=== PATIENT | female | born 1950 | race Caucasian/White ===

== ENCOUNTER 2016-09-20 18:10 | Inpatient (IN) ==
[2016-09-20] MEDS ORDERED: 0.9 % Sodium Chloride 1,000 ML IVC ONE (18:42)
[2016-09-20 19:03] LABS: Basophils % 0.6 %; Eosinophils # 0.1 K/mcL (0.0-0.6); Eosinophils % 1.7 %; Hematocrit 39.1 % (35.3-44.9); Hemoglobin 12.7 g/dL (11.5-15.4); Immature Granulocytes % 0.2 % (0-4); Lymphocytes # 0.8 K/mcL (0.6-4.6); Lymphocytes % 15.3 %; Mean Corpuscular HGB Conc 32.5 g/dL (31.6-35.5); Mean Corpuscular Volume 89.3 fL (83.0-100.0); Mean Platelet Volume 11.2 fL (9.4-12.4); Monocytes # 0.3 K/mcL (0.0-1.3); Monocytes % 5.3 %; Neutrophils # 4.1 K/mcL (1.6-8.9); Platelet Count 172 K/mcL (140-400); Red Blood Count 4.38 M/mcL (3.82-4.97); Red Cell Distribution Width 14.5 % (11.5-14.5); Segmented Neutrophils % 76.9 %
[2016-09-20 19:11] LABS: INR 1.1; Prothrombin Time 12.2 Seconds (9.4-12.1)
[2016-09-20 19:14] LABS: Activated Partial Thrombo Time 36.5 Seconds (26.0-36.0)
[2016-09-20 19:31] LABS: Bilirubin,Urine Small (Negative); Blood,Urine Trace-intact (Negative); Color,Urine Yellow (Yellow); Glucose,Urine (UA) Normal (Normal); Ketones,Urine Negative (Negative); Leukocyte Esterase,Urine Small (Negative); Nitrite,Urine Negative (Negative); Protein,Urine Negative (Neg-Trace); Specific Gravity,Urine 1.025 (1.010-1.025); Urobilinogen,Urine Normal (Normal)
[2016-09-20 19:39] LABS: Amphetamine Screen,Urine Negative ng/mL (Cutoff=1000); Barbiturate Screen,Urine Negative ng/mL (Cutoff=200); Benzodiazepines Screen,Urine Positive ng/mL (Cutoff=200); Cannabinoid Screen,Urine Positive ng/mL (Cutoff = 50); Cocaine Screen,Urine Negative ng/mL (Cutoff= 300); Opiate Screen,Urine Negative ng/mL (Cutoff=300); Phencyclidine Screen,Urine Negative ng/mL (Cutoff=25)
[2016-09-20 19:41] LABS: RBC,Urine 0-3 per hpf (0-3)
[2016-09-20 19:42] LABS: Bacteria,Urine Few per hpf (None-Few); Hyaline Casts,Urine Few per lpf (None-Few); Mucus,Urine Few (Few); Squamous Epithelial Cell,Urine Many per lpf (None-Few); Uric Acid Crystals,Urine Present
[2016-09-20 19:43] LABS: Clarity,Urine Turbid (Clear)
--- NOTE | 2016-09-20 19:45 | Emergency Department Note ---
Disposition Clinical Impression: Altered mental status, Renal dysfunction Disposition: Admitted As Inpatient Condition: Good Referrals: NO,PCP [Primary Care Provider] - Forms: ED Satisfaction Letter Time of Disposition: 00:24 Altered Mental Status HPI - General Chief Complaint: ED Altered Mental Status Stated Complaint: Acute AMS Time Seen by Provider: 09/20/16 18:42 Source: patient Mode of arrival: ambulatory Limitations: no limitations Nursing Notes Reviewed: Yes Vital Signs Reviewed: Yes - History of Present Illness HPI Narrative: 66-year-old female presents with worsening altered mental status over the last 24 hours in the context of urinary tract infection. Her family at the bedside states that this is usual for her when she has a urinary tract infection. She has been taking her antibiotics as directed, with initial improvement in her confusion followed by worsening of symptoms today. She has been more wobbly than usual with walking including an episode today where she has a lowered herself onto the ground while standing with her walker. She denies any fall or head injury. She denies any fever, headache, neck stiffness, chest pain or shortness of breath, nausea or vomiting. She does admit to difficulty with urination. She denies any rashes or edema. 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 She denies any focal numbness or weakness. - Related Data Home Medications Medication Instructions Recorded Confirmed Aspirin [Adult Low Dose Aspirin EC] 81 mg PO DAILY 10/28/15 10/28/15 Atorvastatin [Lipitor] 40 mg PO HS 10/28/15 10/28/15 Cinnamon Bark [Cinnamon] 500 mg PO DAILY 10/28/15 10/28/15 CloNIDine HCl [Clonidine HCl] 0.2 mg PO Q2H PRN 10/28/15 10/28/15 ClonazePAM [Klonopin] 0.5 mg PO Q12H PRN 10/28/15 10/28/15 Clopidogrel [Plavix] 75 mg PO DAILY 10/28/15 10/28/15 DiphenhydraMINE [Benadryl] 50 mg PO HS PRN 10/28/15 10/28/15 Glucosamine HCl/Chondr Cowart A Na 1 each PO DAILY 10/28/15 10/28/15 [Cvs Glucosamine-Chondr Caplet] Insulin DETEMIR [Levemir] 20 unit SQ BID 10/28/15 10/28/15 Insulin LISPRO [Humalog] 6 unit SQ TID 10/28/15 10/28/15 LORazepam [Ativan] 0.5 mg PO TID 10/28/15 10/28/15 Losartan Potassium [Cozaar] 100 mg PO DAILY 10/28/15 10/28/15 Metformin [Glucophage] 500 mg PO BIDWM 10/28/15 10/28/15 Multivitamin/Iron/Folic Acid 1 each PO DAILY 10/28/15 10/28/15 [Centrum Complete Multivit Tab] Pantoprazole Sodium [Protonix] 40 mg PO DAILY 10/28/15 10/28/15 Propranolol HCl 40 mg PO BID 10/28/15 10/28/15 Tizanidine HCl 4 mg PO Q8HR PRN 10/28/15 10/28/15 Previous Rx's Medication Instructions Recorded Isosorbide MONOnitrate (24 HR) 30 mg PO DAILY #30 tab.er.24h 10/31/15 [Imdur] Levofloxacin [Levaquin] 750 mg PO DAILY #5 tablet 10/31/15 Metoprolol [Lopressor] 50 mg PO BID 60 Days 10/31/15 Nitrofurantoin (BID) [Macrobid] 100 mg PO BID #14 capsule 09/14/16 Sulfamethoxazole/Trimeth DS 1 each PO BID #14 tablet 09/14/16 [Bactrim DS] Allergies Allergy/AdvReac Type Severity Reaction Status Date / Time acetaminophen [From Tylenol] Allergy Anxiety Verified 09/14/16 08:35 furosemide [From Lasix] Allergy Anaphylaxis Verified 09/14/16 08:35 All systems ED: reviewed and negative except as stated. Past Medical History - Past Medical History Attestation: Yes The following information was validated with the patient. 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 - Social History Smoking Status: Former smoker Smokeless Tobacco Status: No Alcohol use: Reports: none Drug use: Reports: marijuana Physical Exam - Head Head exam: atraumatic, normocephalic, normal inspection - Eye Eye exam: Present: normal appearance, PERRL, EOMI - ENT ENT exam: normal exam, normal oropharynx, mucous membranes moist - Neck Neck exam: Present: normal inspection, full ROM, trachea midline - Chest Chest inspection: Present: normal inspection, symmetric chest wall rise - Respiratory Respiratory exam: Clear to auscultation bilaterally without wheezes rales or rhonchi Cardiovascular Cardiovascular exam: Present: regular rate, normal rhythm, normal heart sounds - Abdominal Exam Abdominal exam: Present: soft, Non-Tender. Absent: tenderness, distention, guarding, rebound, rigidity - Extremities Exam There is an abrasion to the left knee without any tenderness. Patient bears weight without any difficulty. - Back Exam Back exam: Present: normal inspection, full ROM. Absent: tenderness, CVA tenderness (R), CVA tenderness (L) - Neurological Exam Neurological exam: Present: alert, oriented to person only, CN II-XII intact - Psychiatric Psychiatric exam: Present: normal affect, normal mood - Skin Skin exam: Present: warm, dry, intact, normal color - General Limitations: no limitations General appearance: alert Course - Reevaluation(s) Reevaluation #1: On further history, the patient states that she feels her symptoms are due to her psychiatric disease. She states that she has been having more hallucinations than usual lately. This is an acute exacerbation of her chronic psychiatric problems. She states that whenever she has exacerbations of her psychiatric disease, doctors tell her that she has a urinary tract infection. I tend to agree with her at this point given that she does not appear to have any urinary tract infection on this visit, or in the prior visit. She does have mild renal dysfunction which is slightly improved after IV fluids here. Patient was seen by psychiatric nurse who discussed the case with Dr. Kumar. He does not feel comfortable admitting her to [facility] at this time given her renal dysfunction and concerned that there may be a medical component to her symptoms. He would like to see the patient in consult in the morning and admit the patient to hospitalist. Hospitalist is paged. Time: 00:23 Vital Signs Temperature 97.4 F L 09/20/16 18:25 Pulse Rate 75 09/20/16 18:25 Respiratory Rate 14 09/20/16 18:25 Blood Pressure 97/51 09/20/16 18:25 O2 Sat by Pulse Oximetry 90 L 09/20/16 18:25 Temperature 97.4 F L 09/20/16 18:25 Pulse Rate 58 09/20/16 21:45 Respiratory Rate 16 09/20/16 21:45 Blood Pressure 142/56 09/20/16 21:45 O2 Sat by Pulse Oximetry 96 09/20/16 21:45 Oxygen Delivery Oxygen Delivery Room Air Altered Mental Status - Lab Data Result diagrams: 09/20/16 18:55 09/20/16 23:05 Lab Results 09/20/16 09/20/16 09/20/16 Range/Units 18:51 18:55 18:55 WBC 5.3 (4.3-11.1) K/mcL RBC 4.38 (3.82-4.97) M/mcL Hgb 12.7 (11.5-15.4) g/dL Hct 39.1 (35.3-44.9) % MCV 89.3 (83.0-100.0) fL MCH 29.0 (28.0-33.3) pg MCHC 32.5 (31.6-35.5) g/dL RDW 14.5 (11.5-14.5) % Plt Count 172 (140-400) K/mcL MPV 11.2 (9.4-12.4) fL Immature Gran % 0.2 (0-4) % Seg Neutrophils % 76.9 % Lymphocytes % 15.3 % Monocytes % 5.3 % Eosinophils % 1.7 % Basophils % 0.6 % Neutrophils # 4.1 (1.6-8.9) K/mcL Lymphocytes # 0.8 (0.6-4.6) K/mcL Monocytes # 0.3 (0.0-1.3) K/mcL Eosinophils # 0.1 (0.0-0.6) K/mcL Basophils # 0.0 (0.0-0.2) K/mcL PT 12.2 H (9.4-12.1) Seconds INR 1.1 APTT 36.5 H (26.0-36.0) Seconds Sodium (136-145) mEq/L Potassium (3.5-4.5) mEq/L Chloride (98-109) mEq/L Carbon Dioxide (19-29) mEq/L BUN (7-20) mg/dL Creatinine (0.57-1.11) mg/dL Est GFR ( Amer) (> 60) Est GFR (Non-Af Amer) (> 60) BUN/Creatinine Ratio (6-26) Glucose (70-99) mg/dL POC Glucose 150 H (58-89) Calculated Osmolality (280-300) Calcium (8.6-10.8) mg/dL Total Bilirubin (0.2-1.2) mg/dL Direct Bilirubin (0.0-0.5) mg/dL Indirect Bilirubin (0.0-1.2) mg/dL AST (5-34) Units/L ALT (0-55) Units/L Alkaline Phosphatase (38-126) Units/L Ammonia (18-72) mcmol/L Troponin I (0-0.03) ng/mL Serum Total Protein (6.0-8.3) g/dL Albumin (3.5-5.0) g/dL Globulin (2.4-3.5) g/dL Albumin/Globulin Ratio (1.1-2.2) TSH (0.350-4.840) mcIU/mL Ur Specimen Adequacy Urine Color (Yellow) Urine Clarity (Clear) Urine pH (5.0-8.0) pH Units Ur Specific Bud (1.010-1.025) Urine Protein (Neg-Trace) mg/dL Urine Glucose (UA) (Normal) mg/dL Urine Ketones (Negative) mg/dL Urine Blood (Negative) Urine Nitrite (Negative) Urine Bilirubin (Negative) Urine Urobilinogen (Normal) mg/dL Ur Leukocyte Esterase (Negative) Urine Microscopic RBC (0-3) per hpf Urine Microscopic WBC (0-3) per hpf Ur Squamous Epith Cells (None-Few) per lpf Uric Acid Crystals Urine Bacteria (None-Few) per hpf Hyaline Casts (None-Few) per lpf Urine Mucus (Few) Ur Culture Indicated? (NO) Urine Opiates Screen (Jglbjc=691) ng/mL Ur Barbiturates Screen (Mlyfij=351) ng/mL Ur Phencyclidine Scrn (Cutoff=25) ng/mL Ur Amphetamines Screen (Yphybe=8827) ng/mL U Benzodiazepines Scrn (Iyacnv=829) ng/mL Urine Cocaine Screen (Cutoff= 300) ng/mL U Marijuana (THC) Screen (Cutoff = 50) ng/mL Ethyl Alcohol (0-10) mg/dL 09/20/16 09/20/16 09/20/16 Range/Units 18:55 18:55 18:55 WBC (4.3-11.1) K/mcL RBC (3.82-4.97) M/mcL Hgb (11.5-15.4) g/dL Hct (35.3-44.9) % MCV (83.0-100.0) fL MCH (28.0-33.3) pg MCHC (31.6-35.5) g/dL RDW (11.5-14.5) % Plt Count (140-400) K/mcL MPV (9.4-12.4) fL Immature Gran % (0-4) % Seg Neutrophils % % Lymphocytes % % Monocytes % % Eosinophils % % Basophils % % Neutrophils # (1.6-8.9) K/mcL Lymphocytes # (0.6-4.6) K/mcL Monocytes # (0.0-1.3) K/mcL Eosinophils # (0.0-0.6) K/mcL Basophils # (0.0-0.2) K/mcL PT (9.4-12.1) Seconds INR APTT (26.0-36.0) Seconds Sodium 139 (136-145) mEq/L Potassium 5.5 H (3.5-4.5) mEq/L Chloride 105 (98-109) mEq/L Carbon Dioxide 24 (19-29) mEq/L BUN 26 H (7-20) mg/dL Creatinine 1.51 H (0.57-1.11) mg/dL Est GFR ( Amer) 42 L (> 60) Est GFR (Non-Af Amer) 34 L (> 60) BUN/Creatinine Ratio 17 (6-26) Glucose 154 H (70-99) mg/dL POC Glucose (58-89) Calculated Osmolality 296 (280-300) Calcium 10.0 (8.6-10.8) mg/dL Total Bilirubin 0.5 (0.2-1.2) mg/dL Direct Bilirubin 0.2 (0.0-0.5) mg/dL Indirect Bilirubin 0.3 (0.0-1.2) mg/dL AST 37 H (5-34) Units/L ALT 28 (0-55) Units/L Alkaline Phosphatase 74 (38-126) Units/L Ammonia 18 (18-72) mcmol/L Troponin I 0.00 (0-0.03) ng/mL Serum Total Protein 7.6 (6.0-8.3) g/dL Albumin 4.2 (3.5-5.0) g/dL Globulin 3.4 (2.4-3.5) g/dL Albumin/Globulin Ratio 1.2 (1.1-2.2) TSH 1.133 (0.350-4.840) mcIU/mL Ur Specimen Adequacy Urine Color (Yellow) Urine Clarity (Clear) Urine pH (5.0-8.0) pH Units Ur Specific Bud (1.010-1.025) Urine Protein (Neg-Trace) mg/dL Urine Glucose (UA) (Normal) mg/dL Urine Ketones (Negative) mg/dL Urine Blood (Negative) Urine Nitrite (Negative) Urine Bilirubin (Negative) Urine Urobilinogen (Normal) mg/dL Ur Leukocyte Esterase (Negative) Urine Microscopic RBC (0-3) per hpf Urine Microscopic WBC (0-3) per hpf Ur Squamous Epith Cells (None-Few) per lpf Uric Acid Crystals Urine Bacteria (None-Few) per hpf Hyaline Casts (None-Few) per lpf Urine Mucus (Few) Ur Culture Indicated? (NO) Urine Opiates Screen (Xsjmpy=272) ng/mL Ur Barbiturates Screen (Pefohm=744) ng/mL Ur Phencyclidine Scrn (Cutoff=25) ng/mL Ur Amphetamines Screen (Fikgsu=9603) ng/mL U Benzodiazepines Scrn (Amtkya=030) ng/mL Urine Cocaine Screen (Cutoff= 300) ng/mL U Marijuana (THC) Screen (Cutoff = 50) ng/mL Ethyl Alcohol < 10 (0-10) mg/dL 09/20/16 09/20/16 09/20/16 Range/Units 19:24 19:24 20:11 WBC (4.3-11.1) K/mcL RBC (3.82-4.97) M/mcL Hgb (11.5-15.4) g/dL Hct (35.3-44.9) % MCV (83.0-100.0) fL MCH (28.0-33.3) pg MCHC (31.6-35.5) g/dL RDW (11.5-14.5) % Plt Count (140-400) K/mcL MPV (9.4-12.4) fL Immature Gran % (0-4) % Seg Neutrophils % % Lymphocytes % % Monocytes % % Eosinophils % % Basophils % % Neutrophils # (1.6-8.9) K/mcL Lymphocytes # (0.6-4.6) K/mcL Monocytes # (0.0-1.3) K/mcL Eosinophils # (0.0-0.6) K/mcL Basophils # (0.0-0.2) K/mcL PT (9.4-12.1) Seconds INR APTT (26.0-36.0) Seconds Sodium (136-145) mEq/L Potassium (3.5-4.5) mEq/L Chloride (98-109) mEq/L Carbon Dioxide (19-29) mEq/L BUN (7-20) mg/dL Creatinine (0.57-1.11) mg/dL Est GFR ( Amer) (> 60) Est GFR (Non-Af Amer) (> 60) BUN/Creatinine Ratio (6-26) Glucose (70-99) mg/dL POC Glucose (58-89) Calculated Osmolality (280-300) Calcium (8.6-10.8) mg/dL Total Bilirubin (0.2-1.2) mg/dL Direct Bilirubin (0.0-0.5) mg/dL Indirect Bilirubin (0.0-1.2) mg/dL AST (5-34) Units/L ALT (0-55) Units/L Alkaline Phosphatase (38-126) Units/L Ammonia (18-72) mcmol/L Troponin I (0-0.03) ng/mL Serum Total Protein (6.0-8.3) g/dL Albumin (3.5-5.0) g/dL Globulin (2.4-3.5) g/dL Albumin/Globulin Ratio (1.1-2.2) TSH (0.350-4.840) mcIU/mL Ur Specimen Adequacy See below A Urine Color Yellow Yellow (Yellow) Urine Clarity Turbid A Clear (Clear) Urine pH 6.0 6.0 (5.0-8.0) pH Units Ur Specific Bud 1.025 1.014 (1.010-1.025) Urine Protein Negative Negative (Neg-Trace) mg/dL Urine Glucose (UA) Normal Normal (Normal) mg/dL Urine Ketones Negative Negative (Negative) mg/dL Urine Blood Trace-intact H Negative (Negative) Urine Nitrite Negative Negative (Negative) Urine Bilirubin Small H Negative (Negative) Urine Urobilinogen Normal Normal (Normal) mg/dL Ur Leukocyte Esterase Small H Negative (Negative) Urine Microscopic RBC 0-3 (0-3) per hpf Urine Microscopic WBC 3-5 H (0-3) per hpf Ur Squamous Epith Cells Many H (None-Few) per lpf Uric Acid Crystals Present Urine Bacteria Few (None-Few) per hpf Hyaline Casts Few (None-Few) per lpf Urine Mucus Few (Few) Ur Culture Indicated? YES A NO (NO) Urine Opiates Screen Negative (Tldtni=604) ng/mL Ur Barbiturates Screen Negative (Ahgcur=659) ng/mL Ur Phencyclidine Scrn Negative (Cutoff=25) ng/mL Ur Amphetamines Screen Negative (Sjvevf=4631) ng/mL U Benzodiazepines Scrn Positive H (Hlrweg=531) ng/mL Urine Cocaine Screen Negative (Cutoff= 300) ng/mL U Marijuana (THC) Screen Positive H (Cutoff = 50) ng/mL Ethyl Alcohol (0-10) mg/dL 09/20/16 Range/Units 23:05 WBC (4.3-11.1) K/mcL RBC (3.82-4.97) M/mcL Hgb (11.5-15.4) g/dL Hct (35.3-44.9) % MCV (83.0-100.0) fL MCH (28.0-33.3) pg MCHC (31.6-35.5) g/dL RDW (11.5-14.5) % Plt Count (140-400) K/mcL MPV (9.4-12.4) fL Immature Gran % (0-4) % Seg Neutrophils % % Lymphocytes % % Monocytes % % Eosinophils % % Basophils % % Neutrophils # (1.6-8.9) K/mcL Lymphocytes # (0.6-4.6) K/mcL Monocytes # (0.0-1.3) K/mcL Eosinophils # (0.0-0.6) K/mcL Basophils # (0.0-0.2) K/mcL PT (9.4-12.1) Seconds INR APTT (26.0-36.0) Seconds Sodium 142 (136-145) mEq/L Potassium 5.8 H (3.5-4.5) mEq/L Chloride 111 H (98-109) mEq/L Carbon Dioxide 25 (19-29) mEq/L BUN 23 H (7-20) mg/dL Creatinine 1.21 H (0.57-1.11) mg/dL Est GFR ( Amer) 54 L (> 60) Est GFR (Non-Af Amer) 44 L (> 60) BUN/Creatinine Ratio 19 (6-26) Glucose 150 H (70-99) mg/dL POC Glucose (58-89) Calculated Osmolality 301 H (280-300) Calcium 8.8 (8.6-10.8) mg/dL Total Bilirubin (0.2-1.2) mg/dL Direct Bilirubin (0.0-0.5) mg/dL Indirect Bilirubin (0.0-1.2) mg/dL AST (5-34) Units/L ALT (0-55) Units/L Alkaline Phosphatase (38-126) Units/L Ammonia (18-72) mcmol/L Troponin I (0-0.03) ng/mL Serum Total Protein (6.0-8.3) g/dL Albumin (3.5-5.0) g/dL Globulin (2.4-3.5) g/dL Albumin/Globulin Ratio (1.1-2.2) TSH (0.350-4.840) mcIU/mL Ur Specimen Adequacy Urine Color (Yellow) Urine Clarity (Clear) Urine pH (5.0-8.0) pH Units Ur Specific Bud (1.010-1.025) Urine Protein (Neg-Trace) mg/dL Urine Glucose (UA) (Normal) mg/dL Urine Ketones (Negative) mg/dL Urine Blood (Negative) Urine Nitrite (Negative) Urine Bilirubin (Negative) Urine Urobilinogen (Normal) mg/dL Ur Leukocyte Esterase (Negative) Urine Microscopic RBC (0-3) per hpf Urine Microscopic WBC (0-3) per hpf Ur Squamous Epith Cells (None-Few) per lpf Uric Acid Crystals Urine Bacteria (None-Few) per hpf Hyaline Casts (None-Few) per lpf Urine Mucus (Few) Ur Culture Indicated? (NO) Urine Opiates Screen (Rhfbug=546) ng/mL Ur Barbiturates Screen (Xqjblg=254) ng/mL Ur Phencyclidine Scrn (Cutoff=25) ng/mL Ur Amphetamines Screen (Gfacxd=9772) ng/mL U Benzodiazepines Scrn (Ulfnmt=922) ng/mL Urine Cocaine Screen (Cutoff= 300) ng/mL U Marijuana (THC) Screen (Cutoff = 50) ng/mL Ethyl Alcohol (0-10) mg/dL - EKG Data EKG attestation: Yes I reviewed and interpreted this EKG. EKG results narrative: Normal sinus rhythm at 65 with left axis deviation. First-degree AV block with ND interval of 325. No ST elevation or depression. No T-wave inversions or flattening. No significant change when compared with 09/14/2016. Attestation Statement - Attestation Attestation: I, Tyree Hodge MD, personally performed a history and physical exam of the patient and discussed their management with the resident. I reviewed the resident's note and agree with the documented findings, medical decision making , and plan of care. 66-year-old female presents to the emergency department with a complaint of increased altered mental status. She is currently being treated for UTI. Family reported that she seems more confused than usual. Patient reports to me that she realizes that she is a little confused and disoriented and she feels it is her bipolar disorder acting up. She states she gets episodes like this I always try to save the urinary infection. She does admit to having some visual hallucinations intermittently. No suicidal or homicidal thoughts. Been no fever. No chest pain or shortness of breath or palpitations. No abdominal pain. No vomiting or diarrhea. She denies dysuria or increased urinary frequency. On examination patient is a well-developed obese elderly female in no acute distress. She is alert and oriented 3. There is no cyanosis or diaphoresis. Breath sounds are clear and equal bilaterally. Heart regular rate and rhythm. Abdomen soft and nontender with normal bowel sounds. No gross focal neurological deficits. Labs reviewed and unremarkable. Head CT negative. Chest x-ray negative. No acute changes on EKG. The 1 A psych service was consulted and evaluated patient in the emergency department. They recommended admission to the medicine service by the hospitalist and they will consult on her in the hospital. The hospitalist, Dr. Walden, was consulted and accepted admission of the patient.
[2016-09-20 20:17] LABS: Bilirubin,Urine Negative (Negative); Blood,Urine Negative (Negative); Clarity,Urine Clear (Clear); Color,Urine Yellow (Yellow); Glucose,Urine (UA) Normal (Normal); Ketones,Urine Negative (Negative); Leukocyte Esterase,Urine Negative (Negative); Nitrite,Urine Negative (Negative); Protein,Urine Negative (Neg-Trace); Specific Gravity,Urine 1.014 (1.010-1.025); Urobilinogen,Urine Normal (Normal)
[2016-09-20 20:54] LABS: Alanine Aminotransferase 28 Units/L (0-55); Albumin 4.2 g/dL (3.5-5.0); Albumin/Globulin Ratio 1.2 (1.1-2.2); Alkaline Phosphatase 74 Units/L (38-126); Aspartate Amino Transferase 37 Units/L (5-34); BUN/Creatinine Ratio 17 (6-26); Bilirubin,Direct 0.2 mg/dL (0.0-0.5); Bilirubin,Indirect 0.3 mg/dL (0.0-1.2); Bilirubin,Total 0.5 mg/dL (0.2-1.2); Blood Urea Nitrogen 26 mg/dL (7-20); Carbon Dioxide 24 mEq/L (19-29); Chloride 105 mEq/L (98-109); Globulin 3.4 g/dL (2.4-3.5); Glucose 154 mg/dL (70-99); Osmolality,Calculated 296 (280-300); Potassium 5.5 mEq/L (3.5-4.5); Sodium 139 mEq/L (136-145); Total Protein 7.6 g/dL (6.0-8.3); eGFR For African Americans 42 (> 60); eGFR For Non-African Americans 34 (> 60)
[2016-09-20 20:56] LABS: Ethanol < 10 mg/dL (0-10)
[2016-09-20] MEDS ORDERED: 0.9 % Sodium Chloride 1,000 ML IV ONE (21:10)
[2016-09-20 22:08] LABS: Thyroid Stimulating Hormone 1.133 mcIU/mL (0.350-4.840)
[2016-09-20 23:30] LABS: Calcium 8.8 mg/dL (8.6-10.8); Potassium 5.8 mEq/L (3.5-4.5)
[2016-09-21] MEDS ORDERED: Dextrose Gel 15 GM PO PRN ×2 (03:24)
[2016-09-21] MEDS ORDERED: Ondansetron 4 MG/2 ML VIAL IVP PRN (03:24)
[2016-09-21] MEDS ORDERED: *HR* Dextrose 50 % in Water (Syg) 50 ML SYRINGE IVP PRN (03:24)
[2016-09-21] MEDS ORDERED: D5% in Water 1,000 ML IV PRN (03:24)
[2016-09-21] MEDS ORDERED: Naloxone 0.4 MG/ML INJ IVP PRN (03:24)
--- NOTE | 2016-09-21 03:37 | Internal Med History&Physical ---
Date of Encounter: 09/21/16 Time of Encounter: 03:31 Assessment and Plan (1) Hallucination, visual Current visit: Yes Status: Acute 1. Consult psychiatry -- already notified through ER. 2. Verify home meds and continue as appropriate and per psychiatry. 3. 24 hour sitter. (2) AKSHAT (acute kidney injury) Current visit: Yes Status: Acute 1. IVF hydration. 2. Hold ARB, Lasix. 3. Monitor renal function. If it does not improve, recommend nephrology consult. (3) Hyperkalemia Current visit: Yes Status: Acute 1. Pt received kayexalate in Er and she jsut had large diarrhea/BM. 2. Recheck labs this morning. 3. IVF hydration. 4. Hold ARB. (4) IDDM (insulin dependent diabetes mellitus) Current visit: Yes Status: Chronic 1. Hold metformin. 2. Will use SSI, Levemir. 3. Monitor and adjust as needed. (5) DVT prophylaxis Current visit: Yes Status: Acute 1. Heparin SQ. Internal Medicine - H&P: HPI Chief complaint: hallucinations; possible UTI Admitted From: Emergency Dept Plans for Post Hospital Care: Home History of present illness: Ms. Lozada is a 66 year old female who presented to the ER today for altered mental status and concern for UTI. Workup in the ER was negative and patient was requested to be evaluated by inpatient psychiatry as she was she was actively hallucinating and delusional. Psychiatry recommended patient be admitted to hospitalist service with a consult to psychiatry, however, given that she had hyperkalemia and acute kidney injury. She was therefore admitted to the hospitalist service. Upon my assessment of the patient, patient is pleasant, cooperative, actively delusional and hallucinating at times. She is a poor historian, and I am unable to obtain much history because of her current delusional and hallucinating state. I noticed some cut joaquin on her arm where she had been cutting, and I inquired about these. I asked her if she was trying to hurt herself, but she said no. I asked about hallucinations, and she states she acknowledges she is having them, and that they are not real, but she is seeing cats around her. She also states that she feels as though her mother and father are present when she in fact knows they are and have been for quite some time. She denies any intent to hurt herself or anybody else. I asked her about her background health problems, and she is only able to tell me she has bipolar disorder and diabetes. No further history can be obtained from patient. Past Med Surg Social Fam HX - Past Medical History Attestation: Yes The following information was validated with the patient. Source: old records reviewed Medical history: coronary artery disease, CVA, diabetes, hypertension Psychiatric history: bipolar, depression - Past Surgical History Surgical History: other (unknown; pt unable to provide history) - Social History Smoking Status: Former smoker Smokeless Tobacco Status: No Alcohol use: none Drug use: marijuana Current living situation: Home, With Family Activity Level: Independent ambulation Recent Out of Country Travel Within the Last 8 Weeks: No - Family History Mother Hx Family Endocrine Disorder: Yes Father Hx Family Cancer: Yes Internal Medicine - H&P: Meds Aspirin [Adult Low Dose Aspirin EC] 81 mg PO DAILY 10/28/15 [History] Atorvastatin [Lipitor] 40 mg PO HS 10/28/15 [History] Cinnamon Bark [Cinnamon] 500 mg PO DAILY 10/28/15 [History] CloNIDine HCl [Clonidine HCl] 0.2 mg PO Q2H PRN 10/28/15 [History] ClonazePAM [Klonopin] 0.5 mg PO Q12H PRN 10/28/15 [History] Clopidogrel [Plavix] 75 mg PO DAILY 10/28/15 [History] DiphenhydraMINE [Benadryl] 50 mg PO HS PRN 10/28/15 [History] Glucosamine HCl/Chondr Cowart A Na [Cvs Glucosamine-Chondr Caplet] 1 each PO DAILY 10/28/15 [History] Insulin DETEMIR [Levemir] 20 unit SQ BID 10/28/15 [History] Insulin LISPRO [Humalog] 6 unit SQ TID 10/28/15 [History] LORazepam [Ativan] 0.5 mg PO TID 10/28/15 [History] Losartan Potassium [Cozaar] 100 mg PO DAILY 10/28/15 [History] Metformin [Glucophage] 500 mg PO BIDWM 10/28/15 [History] Multivitamin/Iron/Folic Acid [Centrum Complete Multivit Tab] 1 each PO DAILY [History] Pantoprazole Sodium [Protonix] 40 mg PO DAILY 10/28/15 [History] Propranolol HCl 40 mg PO BID 10/28/15 [History] Tizanidine HCl 4 mg PO Q8HR PRN 10/28/15 [History] Isosorbide MONOnitrate (24 HR) [Imdur] 30 mg PO DAILY #30 tab.er.24h 10/31/15 [ Rx] Levofloxacin [Levaquin] 750 mg PO DAILY #5 tablet 10/31/15 [Rx] Metoprolol [Lopressor] 50 mg PO BID 60 Days 10/31/15 [Rx] Nitrofurantoin (BID) [Macrobid] 100 mg PO BID #14 capsule 09/14/16 [Rx] Sulfamethoxazole/Trimeth DS [Bactrim DS] 1 each PO BID #14 tablet 09/14/16 [Rx] Allergies acetaminophen [From Tylenol] Allergy (Verified 09/14/16 08:35) Anxiety furosemide [From Lasix] Allergy (Verified 09/14/16 08:35) Anaphylaxis - Constitutional Constitutional: falls, no chills, no fever(s) - EENT Eyes: no blurry vision, no change in vision Ears: no ear pain, no tinnitus Nose, mouth and throat: no sinus pressure, no sore throat - Cardiovascular Cardiovascular ROS IM: no chest pain, no dyspnea, no dyspnea on exertion - Respiratory Respiratory: no cough, no hemoptysis - Gastrointestinal Gastrointestinal: nausea, vomiting, no abdominal pain, no diarrhea - Genitourinary Genitourinary: no dysuria, no hematuria - Musculoskeletal Musculoskeletal ROS IM: arthralgias, back pain - Integumentary Integumentary IM: no rash, no jaundice - Neurological Neurological ROS: behavioral changes, frequent falls, no focal weakness, no headache(s) - Psychiatric Psychiatric: anxiety, visual hallucinations, no suicidal ideation - Endocrine Endocrine IM: no polydipsia, no polyuria - Hematologic/Lymphatic Hematologic/Lymphatic: no lymphadenopathy - Allergic/Immunologic Allergic/Immunologic: no wheezing, no GI upset with certain foods - Constitutional Vitals: Temp Pulse Resp BP Pulse Ox 97.8 F 62 16 161/81 96 09/21/16 03:12 09/21/16 03:12 09/21/16 03:12 09/21/16 03:12 09/21/16 03:12 General appearance: Present: cooperative, disheveled, A&O X 2, pleasant, no acute distress. Absent: answers questions appropriately - Head Head exam: Present: atraumatic, normal inspection - Expanded Head Exam Head exam expanded: Absent: abrasion, contusion, general tenderness - Eye Eye exam: Present: EOMI, normal appearance, PERRL. Absent: scleral icterus Pupils: Present: normal accommodation - ENT ENT exam: Present: mucous membranes dry, normal exam, normal oropharynx Additional comments: poor dentition - Neck Neck exam general surgery: Present: full ROM, supple. Absent: normal inspection , nuchal rigidity - Respiratory Respiratory exam: Present: CTAB. Absent: chest wall tenderness, rales, respiratory distress, rhonchi, wheezes - Cardiovascular Cardiovascular exam: Present: RRR, +S1, +S2. Absent: diastolic murmur, systolic murmur - GI/Abdominal GI/Abdominal exam: Present: normal bowel sounds, soft. Absent: hepatomegaly, mass, splenomegaly, tenderness - Extremities Exam Extremities exam: Present: full ROM, warm. Absent: calf tenderness, joint swelling, pedal edema - Back Exam Back exam: Present: normal inspection. Absent: CVA tenderness (L), CVA tenderness (R) - Neurological Exam Neurological exam: Present: alert, CN II-XII intact, no focal deficits. Absent : oriented X3 - Psychiatric Psychiatric exam: Present: anxious. Absent: homicidal ideation, suicidal ideation Additional comments: + hallucinations; + delusions - Skin Skin exam: Present: dry, warm. Absent: rash Internal Med - H&P Results - Labs CBC & Chem 7: 09/20/16 18:55 09/20/16 23:05 - EKG Data -: EKG Interpreted by Myself - EKG Data Prior EKG available for review: yes EKG comments: 09/21/16 03:45 Sinus rhythm; LVH; no hyperacute T waves
[2016-09-21 03:47] LABS: Basophils % 0.7 %; Eosinophils # 0.1 K/mcL (0.0-0.6); Eosinophils % 2.4 %; Hematocrit 34.2 % (35.3-44.9); Immature Granulocytes % 0.5 % (0-4); Lymphocytes % 22.7 %; Mean Corpuscular HGB Conc 31.6 g/dL (31.6-35.5); Mean Corpuscular Hemoglobin 28.3 pg (28.0-33.3); Mean Corpuscular Volume 89.8 fL (83.0-100.0); Mean Platelet Volume 10.5 fL (9.4-12.4); Monocytes # 0.3 K/mcL (0.0-1.3); Monocytes % 7.6 %; Neutrophils # 2.8 K/mcL (1.6-8.9); Platelet Count 108 K/mcL (140-400); Red Blood Count 3.81 M/mcL (3.82-4.97); Red Cell Distribution Width 14.4 % (11.5-14.5); Segmented Neutrophils % 66.1 %
[2016-09-21 04:01] LABS: Hemoglobin A1C 6.9 %
[2016-09-21 04:07] LABS: Albumin 3.4 g/dL (3.5-5.0); Albumin/Globulin Ratio 1.3 (1.1-2.2); Bilirubin,Total 0.6 mg/dL (0.2-1.2); Calcium 8.9 mg/dL (8.6-10.8); Globulin 2.7 g/dL (2.4-3.5); Hemoglobin 10.8 g/dL (11.5-15.4); Magnesium 2.2 mg/dL (1.6-2.6); Total Protein 6.1 g/dL (6.0-8.3)
[2016-09-21 04:08] LABS: Potassium 4.6 mEq/L (3.5-4.5)
[2016-09-21] MEDS: *HR* OxyCODONE Immed Rel 5 MG TABLET PO PRN (05:46)
[2016-09-21] MEDS: Insulin LISPRO 300 UNITS/3 ML VIAL SQ SCH ×3 (07:58→17:22)
[2016-09-21] MEDS: *HR* Heparin 5,000 UNIT/ML VIAL SQ SCH ×2 (08:09→17:23)
[2016-09-21] MEDS: Aspirin Enteric Coated 81 MG Tablet PO SCH (08:10)
[2016-09-21] MEDS: Isosorbide MONOnitrate (24 HR) 30 MG TAB.ER.24H PO SCH (11:48)
--- NOTE | 2016-09-21 13:02 | Event Note ---
Date of Encounter: 09/21/16 Time of Encounter: 10:00 Patient seen and examined. On examination, patient sitting upright in bed. Patient alert and oriented 3 and complains of chronic pain to her right hip down her right buttock and into her right leg. She states this pain has been present for several years and she is currently stating that OxyContin is a " shit drug" and she is requesting morphine as she states that his only medication helps with this pain. She denies a change to the character or severity of this pain. Patient also stating she has fallen "100 times in the past year." She states she lives with her daughter whom she does not get along with but however she states that she is safe at home. Hypertension noted this morning, home meds resumed, we will continue to trend her blood pressures. Chest x-ray negative. Head CT negative. Hyperkalemia nearly resolved. Acute kidney injury improving. Urinalysis negative. Mild anemia noted overnight, consistent with hemodilutional given IV fluids; will trend. OT and PT consultations have been ordered. Patient currently denies hallucinations stating that the "cats have all gone home." She also states that her parents have also gone home and then adds "which is good because they have been in for a while." She denies any suicidal or homicidal ideations. Superficial lacerations noted to her left and her rest, patient continues to deny suicidal ideation. We will keep constant attendance at the bedside and await psychiatry evaluation. Continue oxycodone as needed for pain control, IV narcotics not indicated for her chronic pain. OARRS report checked, patient with valid prescriptions for clonazepam and gabapentin only. Tox screen positive for benzos and marijuana. Awaiting psychiatric evaluation, we will continue to monitor renal functioning and blood pressure. ITS Impressions Chest X-Ray 09/20/16 18:42 IMPRESSION: 1. No active pulmonary disease. D/ / Boni Velásquez MD / Boni Velásquez MD Interpreting Provider: Boni Velásquez MD Head CT 09/20/16 20:03 IMPRESSION: No acute intracranial abnormality. D/ / Gonzalo Harley MD / Gonzalo Harley MD Interpreting Provider: Gonzalo Harley MD
[2016-09-21] MEDS: clonazePAM 0.5 MG TABLET PO PRN (14:28)
--- NOTE | 2016-09-21 16:30 | Consult Note ---
Date of Encounter: 09/22/16 Time of Encounter: 16:00 Assessment & Recommendation (1) Hallucination, visual Current visit: Yes Status: Acute Assessment & Recommendation: Delirium due to multiple etiologies, metabolic. Patient's psychiatric condition stable without any acute symptoms. She is currently seeing a counselor and scheduled to see a psychiatrist as outpatient. No further recommendation at this time. Thank you for consultation and please address any questions. History of Present Illness Patient: new to practice Requesting Physician: Sharita Prabhakar Reason for consult: hallucinations History of present illness: Ms. Lozada is a 66 year old female admitted with multiple medical problems including acute renal failure and reported to experience visual hallucinations. Patient presented there was multiple medical problems including acute renal injury hyperkalemia and IDDM. Patient's apparent experience some hallucinations including her delirious states they have changed later and was showing clear mental status as per notes by the nurse practitioner. On interview with the patient was showing clear mental status alert and oriented denied any hallucinations to me that she has been treated for depression last and has been seeing a counselor denied any thoughts of suicide and did not present any delusions was aware that she experience hallucination but denied any at this time. CC: Sharita Prabhakar Past Med Surg Social Fam HX - Past Medical History Medical history: coronary artery disease, CVA, diabetes, hypertension - Past Psychiatric History Psychiatric history: Reports: depression. Denies: previous psychiatric hospitalization Family psychiatric history: Unknown Family History of Suicide: Unknown - Past Surgical History Surgical History: other (unknown; pt unable to provide history) - Social History Smoking Status: Former smoker Smokeless Tobacco Status: No Alcohol use: none Drug use: marijuana - Family History Mother Hx Family Endocrine Disorder: Yes Father Hx Family Cancer: Yes Medications & Allergies Aspirin [Adult Low Dose Aspirin EC] 81 mg PO DAILY 10/28/15 [History] Atorvastatin [Lipitor] 40 mg PO HS 10/28/15 [History] Cinnamon Bark [Cinnamon] 500 mg PO DAILY 10/28/15 [History] ClonazePAM [Klonopin] 0.5 mg PO Q12H PRN 10/28/15 [History] Clopidogrel [Plavix] 75 mg PO DAILY 10/28/15 [History] Glucosamine HCl/Chondr Cowart A Na [Cvs Glucosamine-Chondr Caplet] 1 tab PO DAILY [History] Insulin DETEMIR [Levemir] 25 unit SQ BID 10/28/15 [History] Insulin LISPRO [Humalog] 6 unit SQ TID 10/28/15 [History] Losartan Potassium [Cozaar] 100 mg PO DAILY 10/28/15 [History] Metformin [Glucophage] 500 mg PO BIDWM 10/28/15 [History] Multivitamin/Iron/Folic Acid [Centrum Complete Multivit Tab] 1 tab PO DAILY [History] Propranolol HCl 40 mg PO BID 10/28/15 [History] Tizanidine HCl 4 mg PO Q8HR PRN 10/28/15 [History] Isosorbide MONOnitrate (24 HR) [Imdur] 30 mg PO DAILY #30 tab.er.24h 10/31/15 [ Rx] Metoprolol [Lopressor] 50 mg PO BID 60 Days 10/31/15 [Rx] Baclofen [Lioresal] 10 mg PO TID PRN 09/21/16 [History] CloNIDine HCl [Kapvay] 0.1 mg PO TID 09/21/16 [History] Naproxen Sodium [Aleve] 220 mg PO PRN PRN 09/21/16 [History] Allergies furosemide [From Lasix] Allergy (Verified 09/14/16 08:35) Anaphylaxis acetaminophen [From Tylenol] Adverse Reaction (Verified 09/21/16 12:18) Hallucinating Review of Systems Psychiatric: Reports: auditory hallucinations, visual hallucinations, confusion Mental Status Exam Patient orientation: Yes Person, Yes Time, Yes Place Level of alertness: Alert Patient appearance: Appropriate, Well Groomed Behavior: calm, cooperative Psychomotor activity: Normal Eye contact: Maintains Eye Contact Mood description: Euthymic/stable Affect description: congruent with mood, full range Speech pattern: Normal rate, Normal rhythm, Normal tone Speech volume: Normal Thought process: Linear, Goal Oriented Thought content: No Suicidal ideation, No Homicidal ideation, No Overt delusions Perceptual disturbances: No Auditory hallucinations, No Visual hallucinations Attention span: Capable of Focused Attention Memory description: Grossly Intact Patient reliability: Reliable Historian Intelligence estimate: Average Judgment: Limited Insight: Partial Results - Vital Signs Vital signs: Temp Pulse Resp BP Pulse Ox 98.0 F 59 15 164/73 96 09/21/16 15:27 09/21/16 15:27 09/21/16 15:27 09/21/16 15:27 09/21/16 15:27 - Labs Labs: Laboratory Last Values WBC 4.2 K/mcL (4.3-11.1) L 09/21/16 03:36 RBC 3.81 M/mcL (3.82-4.97) L 09/21/16 03:36 Hgb 10.8 g/dL (11.5-15.4) L D 09/21/16 03:36 Hct 34.2 % (35.3-44.9) L 09/21/16 03:36 MCV 89.8 fL (83.0-100.0) 09/21/16 03:36 MCH 28.3 pg (28.0-33.3) 09/21/16 03:36 MCHC 31.6 g/dL (31.6-35.5) 09/21/16 03:36 RDW 14.4 % (11.5-14.5) 09/21/16 03:36 Plt Count 108 K/mcL (140-400) L 09/21/16 03:36 MPV 10.5 fL (9.4-12.4) 09/21/16 03:36 Immature Gran % 0.5 % (0-4) 09/21/16 03:36 Seg Neutrophils % 66.1 % 09/21/16 03:36 Lymphocytes % 22.7 % 09/21/16 03:36 Monocytes % 7.6 % 09/21/16 03:36 Eosinophils % 2.4 % 09/21/16 03:36 Basophils % 0.7 % 09/21/16 03:36 Neutrophils # 2.8 K/mcL (1.6-8.9) 09/21/16 03:36 Lymphocytes # 1.0 K/mcL (0.6-4.6) 09/21/16 03:36 Monocytes # 0.3 K/mcL (0.0-1.3) 09/21/16 03:36 Eosinophils # 0.1 K/mcL (0.0-0.6) 09/21/16 03:36 Basophils # 0.0 K/mcL (0.0-0.2) 09/21/16 03:36 PT 12.2 Seconds (9.4-12.1) H 09/20/16 18:55 INR 1.1 09/20/16 18:55 APTT 36.5 Seconds (26.0-36.0) H 09/20/16 18:55 Sodium 144 mEq/L (136-145) 09/21/16 03:36 Potassium 4.6 mEq/L (3.5-4.5) H D 09/21/16 03:36 Chloride 112 mEq/L (98-109) H 09/21/16 03:36 Carbon Dioxide 26 mEq/L (19-29) 09/21/16 03:36 BUN 20 mg/dL (7-20) 09/21/16 03:36 Creatinine 1.15 mg/dL (0.57-1.11) H 09/21/16 03:36 Est GFR ( Amer) 57 (> 60) L 09/21/16 03:36 Est GFR (Non-Af Amer) 47 (> 60) L 09/21/16 03:36 BUN/Creatinine Ratio 17 (6-26) 09/21/16 03:36 Glucose 194 mg/dL (70-99) H 09/21/16 03:36 POC Glucose 180 (58-89) H 09/21/16 08:02 Est Mean Plasma Glucose 151 mg/dl 09/21/16 03:36 Hemoglobin A1c 6.9 % (-5.6) H 09/21/16 03:36 Calculated Osmolality 306 (280-300) H 09/21/16 03:36 Calcium 8.9 mg/dL (8.6-10.8) 09/21/16 03:36 Magnesium 2.2 mg/dL (1.6-2.6) 09/21/16 03:36 Total Bilirubin 0.6 mg/dL (0.2-1.2) 09/21/16 03:36 Direct Bilirubin 0.2 mg/dL (0.0-0.5) 09/20/16 18:55 Indirect Bilirubin 0.3 mg/dL (0.0-1.2) 09/20/16 18:55 AST 34 Units/L (5-34) 09/21/16 03:36 ALT 26 Units/L (0-55) 09/21/16 03:36 Alkaline Phosphatase 62 Units/L (38-126) 09/21/16 03:36 Ammonia 18 mcmol/L (18-72) 09/20/16 18:55 Troponin I 0.00 ng/mL (0-0.03) 09/20/16 18:55 Serum Total Protein 6.1 g/dL (6.0-8.3) 09/21/16 03:36 Albumin 3.4 g/dL (3.5-5.0) L 09/21/16 03:36 Globulin 2.7 g/dL (2.4-3.5) 09/21/16 03:36 Albumin/Globulin Ratio 1.3 (1.1-2.2) 09/21/16 03:36 TSH 1.133 mcIU/mL (0.350-4.840) 09/20/16 18:55 Ur Specimen Adequacy See below A 09/20/16 19:24 Urine Color Yellow (Yellow) 09/20/16 20:11 Urine Clarity Clear (Clear) 09/20/16 20:11 Urine pH 6.0 pH Units (5.0-8.0) 09/20/16 20:11 Ur Specific [place] 1.014 (1.010-1.025) 09/20/16 20:11 Urine Protein Negative mg/dL (Neg-Trace) 09/20/16 20:11 Urine Glucose (UA) Normal mg/dL (Normal) 09/20/16 20:11 Urine Ketones Negative mg/dL (Negative) 09/20/16 20:11 Urine Blood Negative (Negative) 09/20/16 20:11 Urine Nitrite Negative (Negative) 09/20/16 20:11 Urine Bilirubin Negative (Negative) 09/20/16 20:11 Urine Urobilinogen Normal mg/dL (Normal) 09/20/16 20:11 Ur Leukocyte Esterase Negative (Negative) 09/20/16 20:11 Urine Microscopic RBC 0-3 per hpf (0-3) 09/20/16 19:24 Urine Microscopic WBC 3-5 per hpf (0-3) H 09/20/16 19:24 Ur Squamous Epith Cells Many per lpf (None-Few) H 09/20/16 19:24 Uric Acid Crystals Present 09/20/16 19:24 Urine Bacteria Few per hpf (None-Few) 09/20/16 19:24 Hyaline Casts Few per lpf (None-Few) 09/20/16 19:24 Urine Mucus Few (Few) 09/20/16 19:24 Ur Culture Indicated? NO (NO) 09/20/16 20:11 Urine Opiates Screen Negative ng/mL (Pkoddh=327) 09/20/16 19:24 Ur Barbiturates Screen Negative ng/mL (Fbwcqk=666) 09/20/16 19:24 Ur Phencyclidine Scrn Negative ng/mL (Cutoff=25) 09/20/16 19:24 Ur Amphetamines Screen Negative ng/mL (Emlwuy=6837) 09/20/16 19:24 U Benzodiazepines Scrn Positive ng/mL ([place]=696) H 09/20/16 19:24 Urine Cocaine Screen Negative ng/mL (Cutoff= 300) 09/20/16 19:24 U Marijuana (THC) Screen Positive ng/mL (Cutoff = 50) H 09/20/16 19:24 Ethyl Alcohol < 10 mg/dL (0-10) 09/20/16 18:55 Consult Discharge Plan - Plan Referrals: NO,PCP [Primary Care Provider] -
[2016-09-21] MEDS: tiZANidine 4 MG TABLET PO PRN (17:23)
[2016-09-21] MEDS: Baclofen 10 MG TABLET PO PRN (21:48)
[2016-09-21] MEDS: Nystatin OINT 15 GM TUBE TP SCH (22:51)
[2016-09-22] MEDS: clonazePAM 0.5 MG TABLET PO PRN (02:39)
[2016-09-22] MEDS: tiZANidine 4 MG TABLET PO PRN ×2 (02:39→11:09)
[2016-09-22 04:53] LABS: Hemoglobin 10.3 g/dL (11.5-15.4); Immature Granulocytes % 0.3 % (0-4)
[2016-09-22 04:55] LABS: Basophils % 0.6 %; Eosinophils # 0.1 K/mcL (0.0-0.6); Eosinophils % 2.3 %; Hematocrit 31.5 % (35.3-44.9); Immature Platelets 3.5 % (1.1-6.1); Lymphocytes # 1.3 K/mcL (0.6-4.6); Lymphocytes % 36.2 %; Mean Corpuscular HGB Conc 32.7 g/dL (31.6-35.5); Mean Corpuscular Hemoglobin 28.9 pg (28.0-33.3); Mean Corpuscular Volume 88.5 fL (83.0-100.0); Mean Platelet Volume 10.8 fL (9.4-12.4); Monocytes # 0.3 K/mcL (0.0-1.3); Monocytes % 7.5 %; Platelet Count 103 K/mcL (140-400); Red Blood Count 3.56 M/mcL (3.82-4.97); Red Cell Distribution Width 14.1 % (11.5-14.5); Segmented Neutrophils % 53.1 %
[2016-09-22 04:56] LABS: Neutrophils # 1.9 K/mcL (1.6-8.9)
[2016-09-22 05:08] LABS: BUN/Creatinine Ratio 13 (6-26); Blood Urea Nitrogen 10 mg/dL (7-20); Calcium 8.2 mg/dL (8.6-10.8); Carbon Dioxide 23 mEq/L (19-29); Chloride 110 mEq/L (98-109); Glucose 174 mg/dL (70-99); Osmolality,Calculated 291 (280-300); Potassium 4.5 mEq/L (3.5-4.5); Sodium 139 mEq/L (136-145); eGFR For African Americans > 60 (> 60); eGFR For Non-African Americans > 60 (> 60)
[2016-09-22] MEDS: Isosorbide MONOnitrate (24 HR) 30 MG TAB.ER.24H PO SCH (09:26)
[2016-09-22] MEDS: Insulin LISPRO 300 UNITS/3 ML VIAL SQ SCH ×3 (09:27→17:43)
[2016-09-22] MEDS: Aspirin Enteric Coated 81 MG Tablet PO SCH (09:27)
[2016-09-22] MEDS: *HR* Heparin 5,000 UNIT/ML VIAL SQ SCH (09:27)
[2016-09-22] MEDS: Nystatin OINT 15 GM TUBE TP SCH ×3 (09:27→17:43)
[2016-09-22] MEDS: Baclofen 10 MG TABLET PO PRN (09:28)
--- NOTE | 2016-09-22 12:53 | Discharge Summary ---
Date of Encounter: 09/22/16 Time of Encounter: 10:30 - Discharge Diagnosis (1) Altered mental status Priority: Primary Status: Resolved Comments: Patient has remained alert and oriented 3 throughout this admission. Her visual hallucinations resolved prior to admission. She has been seen and cleared by psychiatry for outpatient follow-up. No signs of infection. She was mildly dehydrated upon presentation which has since resolved. Recommend follow-up outpatient. (2) AKSHAT (acute kidney injury) Priority: Primary Status: Resolved (3) DVT prophylaxis Priority: Primary Status: Acute Comments: Subcutaneous heparin while admitted (4) Hallucination, visual Priority: Primary Status: Resolved (5) Hyperkalemia Priority: Primary Status: Resolved (6) IDDM (insulin dependent diabetes mellitus) Priority: Secondary Status: Chronic Comments: Relatively well controlled at home with an A1c of 6.9%, recommend continued follow-up outpatient (7) Bipolar 1 disorder Priority: Secondary Status: Chronic Comments: Cleared by psychiatry for outpatient follow-up (8) CAD (coronary artery disease) Priority: Secondary Status: Chronic Comments: Patient denied chest pain or shortness of breath throughout this admission (9) Uncontrolled hypertension Priority: Secondary Status: Chronic Comments: Poorly controlled. In review of her chart, this is an ongoing issue with this patient. Her home medications were resumed. Blood pressure slightly hypertensive on the discharge however patient was very agitated and stated that she was really wanted to get home. Heart rates ranging in the 50s to 60s so I will not change her metoprolol. She was listed as also being on propanolol however in review of her chart, she has not been prescribed this since March 2016 to this medication was removed. She does not need to be on 2 beta blockers. Her losartan dosages maxed out at 100 mg daily. Continue Imdur 30 mg daily. Will add amlodipine to her regimen and have her check her blood pressure daily and follow up outpatient - Discharge Medications Prescriptions: Amlodipine [Norvasc] 5 mg PO DAILY #30 tablet Walker - Rollator [ROLLATOR] 1 each .ROUTE AD #1 each Home Medications: Aspirin [Adult Low Dose Aspirin EC] 81 mg PO DAILY 10/28/15 [History] Atorvastatin [Lipitor] 40 mg PO HS 10/28/15 [History] Cinnamon Bark [Cinnamon] 500 mg PO DAILY 10/28/15 [History] ClonazePAM [Klonopin] 0.5 mg PO Q12H PRN 10/28/15 [History] Clopidogrel [Plavix] 75 mg PO DAILY 10/28/15 [History] Glucosamine HCl/Chondr Cowart A Na [[facility]vs Glucosamine-Chondr Caplet] 1 tab PO DAILY [History] Insulin DETEMIR [Levemir] 25 unit SQ BID 10/28/15 [History] Insulin LISPRO [Humalog] 6 unit SQ TID 10/28/15 [History] Losartan Potassium [Cozaar] 100 mg PO DAILY 10/28/15 [History] Metformin [Glucophage] 500 mg PO BIDWM 10/28/15 [History] Multivitamin/Iron/Folic Acid [Centrum Complete Multivit Tab] 1 tab PO DAILY [History] Tizanidine HCl 4 mg PO Q8HR PRN 10/28/15 [History] Isosorbide MONOnitrate (24 HR) [Imdur] 30 mg PO DAILY #30 tab.er.24h 10/31/15 [ Rx] Metoprolol [Lopressor] 50 mg PO BID 60 Days 10/31/15 [Rx] Baclofen [Lioresal] 10 mg PO TID PRN 09/21/16 [History] CloNIDine HCl [Kapvay] 0.1 mg PO TID 09/21/16 [History] Naproxen Sodium [Aleve] 220 mg PO PRN PRN 09/21/16 [History] Amlodipine [Norvasc] 5 mg PO DAILY #30 tablet 09/22/16 [Rx] Walker - Rollator [ROLLATOR] 1 each .ROUTE AD #1 each 09/22/16 [Rx] Allergies/Adverse Reactions: Allergies furosemide [From Lasix] Allergy (Verified 09/14/16 08:35) Anaphylaxis acetaminophen [From Tylenol] Adverse Reaction (Verified 09/21/16 12:18) Hallucinating Date of admission: 09/21/16 14:02 Primary care physician: Mary Plaza CNP Consults: 09/21/16 01:26 Consult to Fraud Representative [CONS] Routine Reason for SW Consult: patient admitted for hearing voices and seeing things , patient reports she "falls 3 times a day" sometimes and that her daughter "just lets me get up by myself even if it takes 4 hours" 09/21/16 03:26 Consult to Physician [CONS] Routine Consulting Provider: John Kumar Reason for Consult: active hallucinations/delusions Call Completed: Yes 09/21/16 07:58 Consult to Psychiatry [CONS] Routine Consulting Provider: Jose Dixon Reason for Consult: Consult placed for José for hallucinations Time Notified: 08:00 Call Completed: Yes 09/21/16 11:23 Consult to Occupational Therapy [CONS] Routine Comment: Evaluate, develop and implement POC Consult to Physical Therapy [CONS] Routine Comment: Evaluate, develop and implement POC Discharging clinician: Sharita Kohler Anticipated date of discharge: 09/22/16 (with for PT) - Patient Status Disposition: Home Health Service Condition: Good Functional capacity at discharge: uses cane/walker Overall status at discharge: patient is back to baseline - Discharge Instructions Follow Up With: Mary Plaaz CNP [Primary Care Provider] - Additional Instructions: Follow-up with primary care provider in 1-2 weeks - Diet and Activity Activity: as per physical therapy, increase activity as tolerated Diet: diabetic diet, low salt diet Hospital course: Ms. Lozada is a 66 year old female with past medical history of CAD, prior CVA, diabetes, hypertension, bipolar disorder, former tobacco abuse. Patient presented to the emergency room for chief complaint altered mental status and concern for a possible UTI. While in the emergency department, patient was actively hallucinating and was delusional. Psychiatry saw the patient in the emergency department and recommended admission to hospitalist service with consult to psychiatry. Workup in the emergency department notable for acute kidney injury and hyperkalemia. The patient was admitted to the hospitalist service for further evaluation and management. She was admitted and observed over the course of 2 days and her hallucinations had stopped. She remained alert and oriented 3. Her mood and affect remained stable. Urinalysis was negative, urine cultures negative, UTI ruled out. Blood cultures negative. Chest x-ray negative. Head CT negative. Patient informing staff that she has fallen several times over the past year. She was evaluated by occupational therapy who surmised she had no needs. Physical therapy recommended home health. Tox screen is positive for benzos and marijuana. She has a history of poorly controlled blood pressure and amlodipine was added to her regimen. Psychiatry saw and evaluated the patient and cleared her for outpatient follow- up. She denied suicidal or homicidal ideations throughout this admission. Her acute kidney injury and hyperkalemia resolved. She was discharged home in stable condition with close outpatient follow-up recommended. Of note, no overt causative factor for the patient's pauses identified during this admission. Patient did however state that whenever she would fall down her daughter with whom she lives would stop being mean to her and start feel sorry for her. Suspect possible secondary gain. ITS Impressions Chest X-Ray 09/20/16 18:42 IMPRESSION: 1. No active pulmonary disease. D/ / Boni Velásqeuz MD / Boni Velásquez MD Interpreting Provider: Boni Velásquez MD Head CT 09/20/16 20:03 IMPRESSION: No acute intracranial abnormality. D/ / Gonzalo Harley MD / Gonzalo Harley MD Interpreting Provider: Gonzalo Harley MD - Time Spent with Patient Total time spent providing and/or coordinating discharge services: - Constitutional Vitals: Temp Pulse Resp BP Pulse Ox 98.0 F 66 16 187/73 96 09/22/16 10:44 09/22/16 10:44 09/22/16 10:44 09/22/16 10:44 09/22/16 10:44 General appearance: Present: cooperative, disheveled, A&O X 3, pleasant, no acute distress, answers questions appropriately - Head Head exam: Present: atraumatic, normocephalic - Eye Eye exam: Present: PERRL, conjuntiva pink, sclera anicteric Pupils: Present: PERRL - Neck Neck exam general surgery: Present: supple, trachea midline. Absent: lymphadenopathy - Respiratory Respiratory exam: Present: CTAB. Absent: accessory muscle use, rales, respiratory distress, rhonchi, wheezes - Cardiovascular Cardiovascular exam: Present: RRR, +S1, +S2. Absent: diastolic murmur, gallop, rubs, systolic murmur - GI/Abdominal GI/Abdominal exam: Present: normal bowel sounds, soft, no peritoneal signs. Absent: distended, tenderness - Extremities Exam Extremities exam: Present: warm, radial pulses palpable and symetrical. Absent : calf tenderness, cyanotic, pedal edema - Neurological Exam Neurological exam: Present: alert, CN II-XII intact, normal gait, oriented X3, no focal deficits, strengths equal and symetr throughout. Absent: pronater drift, facial droop, speech deficit - Skin Skin exam: Present: dry, intact, pallor, warm
--- NOTE | 2016-09-22 13:12 | Physician Discharge Referral ---
Home Health/Hosp Referral Info Transfer to: Home Health Attending Provider: Linda Kohler CNP Provider in Charge Post Discharge: PCP - Diagnosis (1) Altered mental status Priority: Primary Status: Resolved (2) AKSHAT (acute kidney injury) Priority: Primary Status: Resolved (3) DVT prophylaxis Priority: Primary Status: Acute (4) Hallucination, visual Priority: Primary Status: Resolved (5) Hyperkalemia Priority: Primary Status: Resolved (6) IDDM (insulin dependent diabetes mellitus) Priority: Secondary Status: Chronic (7) Bipolar 1 disorder Priority: Secondary Status: Chronic (8) CAD (coronary artery disease) Priority: Secondary Status: Chronic (9) Uncontrolled hypertension Priority: Secondary Status: Chronic - Respiratory Orders Smoking Cessation: Smoking cessation has been advised. For more information, call the [employer] Quit Line at 1-843-KRBB-NOW. - Diet/Nutrition Diet/Nutrition Orders: No Added Salt (ROBERT), Cardiac, No Concentrated Sweets - Activity Activity Orders: Ambulate, Walker - Services Needed Following services are medically necessary services: Physical Therapy - Transfer Medications Prescriptions: Amlodipine [Norvasc] 5 mg PO DAILY #30 tablet Walker - Rollator [ROLLATOR] 1 each .ROUTE AD #1 each Home Medications: Aspirin [Adult Low Dose Aspirin EC] 81 mg PO DAILY 10/28/15 [History] Atorvastatin [Lipitor] 40 mg PO HS 10/28/15 [History] Cinnamon Bark [Cinnamon] 500 mg PO DAILY 10/28/15 [History] ClonazePAM [Klonopin] 0.5 mg PO Q12H PRN 10/28/15 [History] Clopidogrel [Plavix] 75 mg PO DAILY 10/28/15 [History] Glucosamine HCl/Chondr Cowart A Na [[facility]vs Glucosamine-Chondr Caplet] 1 tab PO DAILY [History] Insulin DETEMIR [Levemir] 25 unit SQ BID 10/28/15 [History] Insulin LISPRO [Humalog] 6 unit SQ TID 10/28/15 [History] Losartan Potassium [Cozaar] 100 mg PO DAILY 10/28/15 [History] Metformin [Glucophage] 500 mg PO BIDWM 10/28/15 [History] Multivitamin/Iron/Folic Acid [Centrum Complete Multivit Tab] 1 tab PO DAILY [History] Tizanidine HCl 4 mg PO Q8HR PRN 10/28/15 [History] Isosorbide MONOnitrate (24 HR) [Imdur] 30 mg PO DAILY #30 tab.er.24h 10/31/15 [ Rx] Metoprolol [Lopressor] 50 mg PO BID 60 Days 10/31/15 [Rx] Baclofen [Lioresal] 10 mg PO TID PRN 09/21/16 [History] CloNIDine HCl [Kapvay] 0.1 mg PO TID 09/21/16 [History] Naproxen Sodium [Aleve] 220 mg PO PRN PRN 09/21/16 [History] Amlodipine [Norvasc] 5 mg PO DAILY #30 tablet 09/22/16 [Rx] Walker - Rollator [ROLLATOR] 1 each .ROUTE AD #1 each 09/22/16 [Rx] Allergies/Adverse Reactions: Allergies furosemide [From Lasix] Allergy (Verified 09/14/16 08:35) Anaphylaxis acetaminophen [From Tylenol] Adverse Reaction (Verified 09/21/16 12:18) Hallucinating Certification: Further, I certify that my clinical findings support that this patient is homebound (i.e. absences from home require considerable and taxing effort and are for medical reasons or anabaptist services or infrequently or short duration when for other reasons) because: Homebound Reason: Patient requires assistance of a person or device to safely leave home Attestation: My signature below is to certify that this patient is under my care and that I, or nurse practitioner, or a physician's school psychologist assistant working with me, has a face-to -face encounter with this patient.
[2016-09-22] MEDS: *HR* OxyCODONE Immed Rel 5 MG TABLET PO PRN (13:37)
--- NOTE | 2016-09-22 15:28 | Electrocardiograph Report ---
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
[2016-09-22 15:44] VITALS: BP 145/78
== END 2016-09-22 19:30 | disposition home health service (06) | DRG 684 ==
LOC: EMEROO 18:10 → 3BNU 18:10
PROVIDERS: ADMIT Nurse Practitioner Family; ATTEND Nurse Practitioner Family

== ENCOUNTER 2019-01-26 21:48 | Inpatient (IN) ==
[2019-01-26 23:18] LABS: Basophils % 0.1 %; Eosinophils % 0.1 %; Hemoglobin 14.1 g/dL (11.5-15.4); Immature Granulocytes % 0.4 % (0-4); Lymphocytes # 0.6 K/mcL (0.6-4.6); Mean Corpuscular HGB Conc 34.4 g/dL (31.6-35.5); Mean Corpuscular Hemoglobin 29.9 pg (28.0-33.3); Mean Corpuscular Volume 86.9 fL (83.0-100.0); Mean Platelet Volume 10.5 fL (9.4-12.4); Monocytes # 1.2 K/mcL (0.0-1.3); Monocytes % 7.8 %; Neutrophils # 12.8 K/mcL (1.6-8.9); Platelet Count 146 K/mcL (140-400); Red Blood Count 4.72 M/mcL (3.82-4.97); Red Cell Distribution Width 13.1 % (11.5-14.5); Segmented Neutrophils % 87.6 %; White Blood Count 14.7 K/mcL (4.3-11.1)
[2019-01-26] MEDS ORDERED: cefTRIAXone 2,000 MG in 0.9 % Sodium Chloride Mini Bag 100 ML IVPB ONE (23:31)
[2019-01-26] MEDS ORDERED: 0.9 % Sodium Chloride 1,000 ML IV ONE (23:31)
[2019-01-26 23:36] LABS: Bilirubin,Urine Negative (Negative); Blood,Urine Moderate (Negative); Clarity,Urine Clear (Clear); Color,Urine Yellow (Yellow); Glucose,Urine (UA) Normal (Normal); Ketones,Urine Trace mg/dL (Negative); Leukocyte Esterase,Urine Large (Negative); Nitrite,Urine Positive (Negative); PH,Urine 6.5 pH Units (5.0-8.0); Protein,Urine >=300 mg/dL (Neg-Trace); Specific Gravity,Urine 1.025 (1.010-1.025); Urobilinogen,Urine Normal (Normal)
[2019-01-26 23:38] LABS: BUN/Creatinine Ratio 21 (6-26); Blood Urea Nitrogen 19 mg/dL (8-23); Calcium 9.3 mg/dL (8.6-10.3); Carbon Dioxide 23 mEq/L (23-29); Chloride 101 mEq/L (98-107); Glucose 276 mg/dL (70-105); Osmolality,Calculated 292 (280-300); Sodium 135 mEq/L (136-145); eGFR For African Americans > 60 (> 60); eGFR For Non-African Americans > 60 (> 60)
[2019-01-26 23:38] LABS: Bacteria,Urine Many per hpf (None-Few); Hyaline Casts,Urine None Seen per lpf (None-Few); Squamous Epithelial Cell,Urine Many per lpf (None-Few); WBC,Urine TNTC per hpf (0-3)
[2019-01-26] MEDS ORDERED: cefTRIAXone 2,000 MG in Water for inj. (sterile) 20 ML 20 ML IVPB ONE (23:45)
[2019-01-26] MEDS ORDERED: cefTRIAXone 2,000 MG in Water for inj. (sterile) 20 ML 20 ML IVP ONE (23:45)
[2019-01-26 23:47] LABS: RBC,Urine 0-3 per hpf (0-3)
--- NOTE | 2019-01-27 00:39 | Emergency Department Note ---
Disposition Clinical Impression: Dehydration, SIRS (systemic inflammatory response syndrome) Urinary tract infection Qualifiers: Urinary tract infection type: acute cystitis Hematuria presence: with hematuria Qualified Code(s): N30.01 - Acute cystitis with hematuria Sepsis Qualifiers: Sepsis type: sepsis due to unspecified organism Qualified Code(s): A41.9 - Sepsis, unspecified organism Disposition: Admitted As Inpatient Condition: Fair Referrals: Jovana Madsen [Primary Care Provider] - Time of Disposition: 00:36 Female Urogenital HPI - General Chief complaint: ED Urogenital-Female Stated complaint: "raging UTI" Time Seen by Provider: 01/26/19 23:19 Source: patient, family Mode of arrival: ambulatory Limitations: no limitations - History of Present Illness HPI Narrative: 68-year-old male patient who presents for evaluation of urinary type symptoms. She states she has frequent urinary tract infections. She was trying to make it to see her family doctor on Wednesday . However things were worsening. She did have a fever at home MAXIMUM TEMPERATURE was 101 Patient denies chest pain, palpitations, shortness of breath recent falls or trauma or concerns or complaints. Pt Subjective Complaint: dysuria, "UTI" Onset (ago): day(s) (4 days) Radiation: non-radiating Severity: moderate Severity scale (1-10): 7 Quality: burning Duration: gradually worsening Improves with: none Worsens with: urination Urinary Symptoms: dysuria, urgency, frequency Associated symptoms: Denies: rash, shortness of breath, syncope, weakness - Related Data Home Medications Medication Instructions Recorded Confirmed Aspirin [Adult Low Dose Aspirin EC] 81 mg PO DAILY 10/28/15 09/21/16 Atorvastatin [Lipitor] 40 mg PO HS 10/28/15 09/21/16 Cinnamon Bark [Cinnamon] 500 mg PO DAILY 10/28/15 09/21/16 Clopidogrel [Plavix] 75 mg PO DAILY 10/28/15 09/21/16 Glucosamine HCl/Chondr Cowart A Na 1 tab PO DAILY 10/28/15 09/21/16 [[facility] Glucosamine-Chondr Caplet] Insulin DETEMIR [Levemir] 25 unit SQ BID 10/28/15 09/21/16 Insulin LISPRO [Humalog] 6 unit SQ TID 10/28/15 09/21/16 Losartan Potassium [Cozaar] 100 mg PO DAILY 10/28/15 09/21/16 Multivitamin/Iron/Folic Acid 1 tab PO DAILY 10/28/15 09/21/16 [Centrum Complete Multivit Tab] Tizanidine HCl 4 mg PO Q8HR PRN 10/28/15 09/21/16 clonazePAM [Klonopin] 0.5 mg PO Q12H PRN 10/28/15 09/21/16 metFORMIN [Glucophage] 500 mg PO BIDWM 10/28/15 09/21/16 Baclofen [Lioresal] 10 mg PO TID PRN 09/21/16 09/21/16 CloNIDine HCl [Kapvay] 0.1 mg PO TID 09/21/16 09/21/16 Naproxen Sodium [Aleve] 220 mg PO PRN PRN 09/21/16 09/21/16 Previous Rx's Medication Instructions Recorded Isosorbide MONOnitrate (24 HR) 30 mg PO DAILY #30 tab.er.24h 10/31/15 [Imdur] Metoprolol [Lopressor] 50 mg PO BID 60 Days tablet 10/31/15 Walker - Rollator [ROLLATOR] 1 each .ROUTE AD #1 each 09/22/16 amLODIPine [Norvasc] 5 mg PO DAILY #30 tablet 09/22/16 Naproxen [Naprosyn] 250 mg PO BID #14 tablet 10/05/16 Allergies Allergy/AdvReac Type Severity Reaction Status Date / Time furosemide [From Lasix] Allergy Anaphylaxis Verified 01/26/19 21:49 acetaminophen [From Tylenol] AdvReac Hallucinati Verified 01/26/19 21:49 ng All systems ED: reviewed and negative except as stated. Constitutional: Reports: fever, chills. Denies: weakness, weight change Eyes: Denies: eye pain, eye discharge, vision change ENT ED: Denies: ear pain, throat pain, dental pain, hearing loss, epistaxis, congestion, dysphagia Cardiovascular: Denies: chest pain, palpitations, dyspnea on exertion, edema, syncope Respiratory: Denies: cough, dyspnea, wheezes, hemoptysis, stridor Gastrointestinal: Denies: abdominal pain, nausea, vomiting, diarrhea, constipation, hematemesis, melena, hematochezia Genitourinary: Reports: urgency, frequency Musculoskeletal: Reports: back pain (Chronic low back pain). Denies: neck pain, arthralgia, myalgia Integumentary: Denies: rash, abrasion, lesions Neurological: Denies: headache, weakness, numbness, paresthesias, confusion, abnormal gait, vertigo Psychiatric: Denies: anxiety, depression, suicidal thoughts, homicidal thoughts, auditory hallucinations, visual hallucinations Endocrine: Denies: fatigue Hematological/Lymphatic: Denies: easy bleeding, easy bruising Past Medical History - Past Medical History Attestation: Yes The following information was validated with the patient. Source: patient, old records reviewed, nursing notes reviewed Medical history: Reports: coronary artery disease, CVA, diabetes, hypertension Surgical history: Reports: other (unknown; pt unable to provide history) Psychiatric history: Reports: anxiety, depression CARGO TRIMMER history: Reports: no CARGO TRIMMER history - Social History Smoking Status: Former smoker Smokeless Tobacco Status: No Alcohol use: Reports: none Drug use: Reports: none Physical Exam - General Limitations: no limitations General appearance: alert, in no apparent distress - Head Head exam: atraumatic, normocephalic, normal inspection - Expanded Head Exam Head exam physicial: Absent: laceration, abrasion, contusion, hematoma - Eye Eye exam: Present: normal appearance, PERRL, EOMI - ENT ENT exam: normal exam, normal oropharynx, mucous membranes moist - Neck Neck exam: Present: normal inspection, full ROM, trachea midline - Chest Chest inspection: Present: normal inspection, symmetric chest wall rise - Respiratory Respiratory exam: Present: normal lung sounds bilaterally. Absent: respiratory distress, wheezes - Cardiovascular Cardiovascular exam: Present: regular rate, normal rhythm, normal heart sounds, other (Arrival she was tachycardic but her heart rate now is 92.) - Abdominal Exam Abdominal exam: Present: soft, tenderness (Superior tenderness), normal bowel sounds, other (No rebound rigidity guarding or distention). Absent: distention, guarding, rebound, rigidity Abdominal tenderness: Present: suprapubic - Extremities Exam Extremities exam: Present: normal inspection, full ROM. Absent: tenderness, pedal edema - Back Exam Back exam: Present: normal inspection, full ROM. Absent: tenderness - Neurological Exam Neurological exam: Present: alert, oriented X3, CN II-XII intact. Absent: motor sensory deficit - Psychiatric Psychiatric exam: Present: normal affect, normal mood. Absent: depressed - Skin Skin exam: Present: warm, dry, intact, normal color Course Course Narrative: Patient was placed exam room. History physical was obtained. Patient initially does not service criteria she is tachycardic and reported fever at home alone. Having leukocytosis here. She has frequent urinary tract infections. Her urinalysis was positive for UTI. Blood cultures and urine culture obtained. Lactic is a was normal. Rocephin 2 g IV was given. Patient admitted to the hospitalist service. She does minus some low back pain that is in the parasp inal muscles. Severe normal chronic low back pain. Nothing in the flanks or overlying the kidneys. There is no pain from the abdomen radiating either. She has had no vomiting or diarrhea. She does report she took aspirin for her fever as she cannot take Tylenol or Motrin Sepsis was diagnosed at 2355 Her heart rate has improved peripheral pulses are present Refill is less than 2 seconds - Reevaluation(s) Reevaluation #1: Patient resting comfortable. Heart rate has improved. Patient does meet sepsis criteria. Patient has a little white cell count, tachycardia and reported fevers at home as well as a urinary tract infection on urinalysis. Patient blood cultures and urinary cultures along with lab work. Rocephin 2 g IV was started after blood cultures and urine cultures were obtained. Lactic acid level was normal. She will be admitted to Time: 00:36 Vital Signs Temperature 98.3 F 01/26/19 21:50 Pulse Rate 109 01/26/19 21:50 Respiratory Rate 22 01/26/19 21:50 Blood Pressure 150/77 01/26/19 21:50 O2 Sat by Pulse Oximetry 90 01/26/19 21:50 Temperature 98.3 F 01/26/19 21:50 Pulse Rate 63 01/26/19 23:56 Respiratory Rate 16 01/26/19 23:56 Blood Pressure 115/69 01/26/19 23:56 O2 Sat by Pulse Oximetry 95 01/26/19 23:56 Oxygen Delivery Oxygen Delivery Room Air Urogenital-Female - Differential Diagnosis Likely: urinary tract infection (Sepsis, Sirs) - Medical Records Medical records reviewed: Yes I reviewed the patient's medical records. - Lab Data Lab results reviewed: Yes I reviewed the patient's lab results. Result diagrams: 01/26/19 23:05 01/26/19 23:05 Lab Results 01/26/19 01/26/19 01/26/19 Range/Units 23:05 23:05 23:17 WBC 14.7 H (4.3-11.1) K/mcL RBC 4.72 (3.82-4.97) M/mcL Hgb 14.1 (11.5-15.4) g/dL Hct 41.0 (35.3-44.9) % MCV 86.9 (83.0-100.0) fL MCH 29.9 (28.0-33.3) pg MCHC 34.4 (31.6-35.5) g/dL RDW 13.1 (11.5-14.5) % Plt Count 146 (140-400) K/mcL MPV 10.5 (9.4-12.4) fL Immature Gran % 0.4 (0-4) % Seg Neutrophils % 87.6 % Lymphocytes % 4.0 % Monocytes % 7.8 % Eosinophils % 0.1 % Basophils % 0.1 % Neutrophils # 12.8 H (1.6-8.9) K/mcL Lymphocytes # 0.6 (0.6-4.6) K/mcL Monocytes # 1.2 (0.0-1.3) K/mcL Eosinophils # 0.0 (0.0-0.6) K/mcL Basophils # 0.0 (0.0-0.2) K/mcL Sodium 135 L (136-145) mEq/L Potassium 4.0 (3.5-5.1) mEq/L Chloride 101 (98-107) mEq/L Carbon Dioxide 23 (23-29) mEq/L BUN 19 (8-23) mg/dL Creatinine 0.90 (0.60-1.20) mg/dL Est GFR ( Amer) > 60 (> 60) Est GFR (Non-Af Amer) > 60 (> 60) BUN/Creatinine Ratio 21 (6-26) Glucose 276 H (70-105) mg/dL Calculated Osmolality 292 (280-300) Lactic Acid (0.5-2.2) mmol/L Calcium 9.3 (8.6-10.3) mg/dL Urine Color Yellow (Yellow) Urine Clarity Clear (Clear) Urine pH 6.5 (5.0-8.0) pH Units Ur Specific [place] 1.025 (1.010-1.025) Urine Protein >=300 H (Neg-Trace) mg/dL Urine Glucose (UA) Normal (Normal) mg/dL Urine Ketones Trace H (Negative) mg/dL Urine Blood Moderate H (Negative) Urine Nitrite Positive A (Negative) Urine Bilirubin Negative (Negative) Urine Urobilinogen Normal (Normal) mg/dL Ur Leukocyte Esterase Large H (Negative) Urine Microscopic RBC 0-3 (0-3) per hpf Urine Microscopic WBC TNTC H (0-3) per hpf Ur Squamous Epith Cells Many H (None-Few) per lpf Urine Bacteria Many H (None-Few) per hpf Hyaline Casts None Seen (None-Few) per lpf Urine Yeast Test Not Performed Ur Culture Indicated? YES A (NO) 01/26/19 Range/Units 23:45 WBC (4.3-11.1) K/mcL RBC (3.82-4.97) M/mcL Hgb (11.5-15.4) g/dL Hct (35.3-44.9) % MCV (83.0-100.0) fL MCH (28.0-33.3) pg MCHC (31.6-35.5) g/dL RDW (11.5-14.5) % Plt Count (140-400) K/mcL MPV (9.4-12.4) fL Immature Gran % (0-4) % Seg Neutrophils % % Lymphocytes % % Monocytes % % Eosinophils % % Basophils % % Neutrophils # (1.6-8.9) K/mcL Lymphocytes # (0.6-4.6) K/mcL Monocytes # (0.0-1.3) K/mcL Eosinophils # (0.0-0.6) K/mcL Basophils # (0.0-0.2) K/mcL Sodium (136-145) mEq/L Potassium (3.5-5.1) mEq/L Chloride (98-107) mEq/L Carbon Dioxide (23-29) mEq/L BUN (8-23) mg/dL Creatinine (0.60-1.20) mg/dL Est GFR ( Amer) (> 60) Est GFR (Non-Af Amer) (> 60) BUN/Creatinine Ratio (6-26) Glucose (70-105) mg/dL Calculated Osmolality (280-300) Lactic Acid 1.7 (0.5-2.2) mmol/L Calcium (8.6-10.3) mg/dL Urine Color (Yellow) Urine Clarity (Clear) Urine pH (5.0-8.0) pH Units Ur Specific [place] (1.010-1.025) Urine Protein (Neg-Trace) mg/dL Urine Glucose (UA) (Normal) mg/dL Urine Ketones (Negative) mg/dL Urine Blood (Negative) Urine Nitrite (Negative) Urine Bilirubin (Negative) Urine Urobilinogen (Normal) mg/dL Ur Leukocyte Esterase (Negative) Urine Microscopic RBC (0-3) per hpf Urine Microscopic WBC (0-3) per hpf Ur Squamous Epith Cells (None-Few) per lpf Urine Bacteria (None-Few) per hpf Hyaline Casts (None-Few) per lpf Urine Yeast Ur Culture Indicated? (NO)
[2019-01-27] MEDS ORDERED: Naloxone 0.4 MG/ML INJ IVP PRN (06:03)
[2019-01-27] MEDS ORDERED: *HR* Dextrose 50 % in Water (Syg) 50 ML SYRINGE IVP PRN (06:07)
[2019-01-27] MEDS ORDERED: Dextrose Gel 15 GM/37.5 ML TUBE PO PRN ×2 (06:07)
[2019-01-27] MEDS ORDERED: D5% in Water 1,000 ML IVC PRN (06:07)
[2019-01-27 06:43] LABS: Hematocrit 42.7 % (35.3-44.9); Hemoglobin 14.3 g/dL (11.5-15.4); Mean Corpuscular HGB Conc 33.5 g/dL (31.6-35.5); Mean Corpuscular Volume 89.5 fL (83.0-100.0); Mean Platelet Volume 10.4 fL (9.4-12.4); Platelet Count 134 K/mcL (140-400); Red Blood Count 4.77 M/mcL (3.82-4.97); Red Cell Distribution Width 13.2 % (11.5-14.5); White Blood Count 11.4 K/mcL (4.3-11.1)
--- NOTE | 2019-01-27 07:01 | Internal Med History&Physical ---
Date of Encounter: 01/27/19 Time of Encounter: 05:40 Internal Medicine - H&P: HPI Chief complaint: Urinary tract infection Admitted From: Emergency Dept Plans for Post Hospital Care: Home History of present illness: Ms. Lozada is a 68 year old female Patient presented to the emergency room with one-day history of fever, urinary tract infection and chills. She states that she had a temperature at home of 102, symptoms like her previous UTI and elevated blood sugars. She developed chills and back pain as well. She had an appointment to see her family doctor on Wednesday, but was unable to make it that long. She called an ambulance and came to the ER. In the ER patient's vital signs: Temperature 98.3, Pulse 109, respiratory rate 22, blood pressure 150/77, oxygen saturation 90-96 on room air. CBC: Significant for wbc of 14.7 BMP: Significant for glucose of 276 Lactic acid of 1.7 Urinalysis: Positive nitrite, Large leukocyte esterase numerous WBCs, many bacteria. Culture indicated. The ED gave the patient a dose of ceftriaxone, IV fluids and admitted the patient to the hospital for further evaluation. Upon my evaluation patient is resting comfortably in the hospital bed, she is experiencing chills but otherwise feels fine. She denies chest pain, abdominal pain, nausea, vomiting, diarrhea and constipation. She denies dysuria but has had increased bladder urgency and frequency. She is baseline incontinent with urine. She has a family history of cancer in her father, and her mother had a history of stroke, diabetes, and mental illness. She is a full code. Past Med Surg Social Fam HX - Past Medical History Medical history: coronary artery disease, CVA, diabetes, hypertension Additional medical history: sleep apnea Psychiatric history: anxiety, depression - Past Surgical History Surgical History: other (unknown; pt unable to provide history) Additional surgical history: cardiac stent - Social History Smoking Status: Former smoker Smokeless Tobacco Status: No Alcohol use: none Drug use: none - Family History Mother Hx Family Endocrine Disorder: Yes Father Name: Ray Family Member Ethnicity: Non- Living Status: Age at : 69 Hx Family Cancer: Yes (Stomach) Internal Medicine - H&P: Meds Aspirin [Adult Low Dose Aspirin EC] 81 mg PO DAILY 10/28/15 [History] Atorvastatin [Lipitor] 40 mg PO HS 10/28/15 [History] Cinnamon Bark [Cinnamon] 500 mg PO DAILY 10/28/15 [History] Clopidogrel [Plavix] 75 mg PO DAILY 10/28/15 [History] Glucosamine HCl/Chondr Cowart A Na [[facility] Glucosamine-Chondr Caplet] 1 tab PO DAILY 10/28/15 [History] Insulin DETEMIR [Levemir] 25 unit SQ BID 10/28/15 [History] Insulin LISPRO [Humalog] 6 unit SQ TID 10/28/15 [History] Losartan Potassium [Cozaar] 100 mg PO DAILY 10/28/15 [History] Multivitamin/Iron/Folic Acid [Centrum Complete Multivit Tab] 1 tab PO DAILY 10/28/15 [History] Tizanidine HCl 4 mg PO Q8HR PRN 10/28/15 [History] clonazePAM [Klonopin] 0.5 mg PO Q12H PRN 10/28/15 [History] metFORMIN [Glucophage] 500 mg PO BIDWM 10/28/15 [History] Isosorbide MONOnitrate (24 HR) [Imdur] 30 mg PO DAILY #30 tab.er.24h 10/31/15 [Rx] Metoprolol [Lopressor] 50 mg PO BID 60 Days tablet 10/31/15 [Rx] Baclofen [Lioresal] 10 mg PO TID PRN 09/21/16 [History] CloNIDine HCl [Kapvay] 0.1 mg PO TID 09/21/16 [History] Naproxen Sodium [Aleve] 220 mg PO PRN PRN 09/21/16 [History] Walker - Rollator [ROLLATOR] 1 each .ROUTE AD #1 each 09/22/16 [Rx] amLODIPine [Norvasc] 5 mg PO DAILY #30 tablet 09/22/16 [Rx] Naproxen [Naprosyn] 250 mg PO BID #14 tablet 10/05/16 [Rx] Allergy/AdvReac Type Severity Reaction Status Date / Time furosemide [From Lasix] Allergy Anaphylaxis Verified 01/26/19 21:49 acetaminophen [From Tylenol] AdvReac Hallucinati Verified 01/26/19 21:49 ng All Systems PM: A 10-system review of systems was performed and is negative for pertinent findings except as documented above in the HPI. - Constitutional Vitals: Temp Pulse Resp BP Pulse Ox 98.3 F 79 17 113/76 96 01/27/19 04:15 01/27/19 04:15 01/27/19 04:15 01/27/19 04:15 01/27/19 04:15 General appearance: Present: cooperative, A&O X 3, pleasant, no acute distress, answers questions appropriately Exam: - - Head Head exam: Present: normal inspection - Eye Eye exam: Present: EOMI, normal appearance - Neck Neck exam general surgery: Present: full ROM - Respiratory Respiratory exam: Present: CTAB. Absent: rales, respiratory distress, rhonchi, wheezes - Cardiovascular Cardiovascular exam: Present: RRR. Absent: diastolic murmur, systolic murmur - GI/Abdominal GI/Abdominal exam: Present: normal bowel sounds, soft, tenderness Additional comments: Suprapubic tenderness with palpation - Extremities Exam Extremities exam: Present: warm, radial pulses palpable and symmetrical. Absent: calf tenderness, pedal edema, tenderness - Neurological Exam Neurological exam: Present: no focal deficits, strengths equal and symetr throughout. Absent: motor sensory deficit, facial droop, speech deficit - Skin Skin exam: Present: dry, normal color, warm Internal Med - H&P Results - Labs CBC & Chem 7: 01/27/19 06:31 01/26/19 23:05 Labs: Short CBC 01/26/19 01/27/19 Range/Units 23:05 06:31 WBC 14.7 H 11.4 H (4.3-11.1) K/mcL Hgb 14.1 14.3 (11.5-15.4) g/dL Hct 41.0 42.7 (35.3-44.9) % Plt Count 146 134 L (140-400) K/mcL Neutrophils # 12.8 H (1.6-8.9) K/mcL BMP 01/26/19 23:05 Sodium 135 L Potassium 4.0 Chloride 101 Carbon Dioxide 23 BUN 19 Creatinine 0.90 Glucose 276 H Calcium 9.3 Urine 01/26/19 Range/Units 23:17 Urine Color Yellow (Yellow) Urine Clarity Clear (Clear) Urine pH 6.5 (5.0-8.0) pH Units Ur Specific [place] 1.025 (1.010-1.025) Urine Protein >=300 H (Neg-Trace) mg/dL Urine Glucose (UA) Normal (Normal) mg/dL - Assessment and Plan (1) UTI (urinary tract infection) Current Visit: Yes Status: Acute Assessment and plan: Patient's urinalysis positive for nitrites, large leukocyte esterase, numerous white blood cells and many bacteria. Culture was indicated. Patient was started on ceftriaxone in the emergency room. Previous urine culture grew out Escherichia coli last November sensitive to ceftriaxone. Continue IV antibiotics Follow-up urine culture Qualifiers: Urinary tract infection type: acute cystitis Hematuria presence: with hematuria Qualified Code(s): N30.01 - Acute cystitis with hematuria (2) Diabetes Current Visit: No Status: Acute Assessment and plan: Patient is an insulin dependent diabetic Monitor sugars ACHS Diabetic diet Low dose insulin sliding scale as needed Hold home meds. Qualifiers: Diabetes mellitus type: type 2 Diabetes mellitus fpc insulin use: with fpc use Diabetes mellitus complication status: with hyperglycemia Qualified Code(s): E11.65 - Type 2 diabetes mellitus with hyperglycemia; Z79.4 - jail (current) use of insulin (3) Sleep apnea Current Visit: Yes Status: Acute Assessment and plan: Continue CPAP Qualifiers: Sleep apnea type: unspecified type Qualified Code(s): G47.30 - Sleep apnea, unspecified (4) DVT prophylaxis Current Visit: No Status: Acute Assessment and plan: Subcutaneous heparin - Time Spent With Patient Total time spent is greater than 50% in coordination of care (as documented) at patient's floor/unit and/or counseling patient: Greater than 35 minutes
[2019-01-27 07:06] LABS: BUN/Creatinine Ratio 20 (6-26); Blood Urea Nitrogen 18 mg/dL (8-23); Calcium 9.8 mg/dL (8.6-10.3); Carbon Dioxide 27 mEq/L (23-29); Chloride 103 mEq/L (98-107); Glucose 227 mg/dL (70-105); Osmolality,Calculated 297 (280-300); Potassium 4.7 mEq/L (3.5-5.1); Sodium 139 mEq/L (136-145); eGFR For African Americans > 60 (> 60); eGFR For Non-African Americans > 60 (> 60)
[2019-01-27] MEDS ORDERED: 0.9 % Sodium Chloride 1,000 ML IVC ONE ×2 (07:16→17:32)
[2019-01-27] MEDS ORDERED: Insulin LISPRO 300 UNITS/3 ML VIAL SQ SCH ×2 (07:30→21:00)
[2019-01-27] MEDS ORDERED: Ibuprofen 600 MG TABLET PO PRN (08:10)
[2019-01-27] MEDS ORDERED: hydrOXYzine pamoate 25 MG CAPSULE PO PRN (10:52)
--- NOTE | 2019-01-27 11:12 | Event Note ---
Date of Encounter: 01/27/19 Time of Encounter: 10:35 Patient with sepsis from UTI. Complains of neck pain and back pain and requesting her home medications. She takes and I flex at home. We will continue this medication. Continue IV antibiotics. Await culture results. She did Have fever earlier this morning but WBC count is trending down.
[2019-01-27] MEDS: traMADol 50 MG TABLET PO PRN ×2 (11:56→20:53)
[2019-01-27] MEDS: amLODIPine 5 MG TABLET PO SCH (11:56)
[2019-01-27] MEDS: Isosorbide MONOnitrate (24 HR) 60 MG TAB.ER.24H PO SCH (11:56)
[2019-01-27] MEDS: Metoprolol XL (24 HR) Succ 50 MG TAB.ER.24H PO SCH (11:56)
[2019-01-27] MEDS: tiZANidine 4 MG TABLET PO PRN ×2 (11:56→23:00)
[2019-01-27] MEDS: Insulin LISPRO 300 UNITS/3 ML VIAL SQ SCH ×3 (11:57→20:54)
[2019-01-27] MEDS: Insulin DETEMIR 100 UNIT/ML X5UNITS SQ SCH ×2 (11:57→20:54)
--- NOTE | 2019-01-27 17:00 | Electrocardiograph Report ---
[address] [address] Test Date: 2019-01-27 Pat Name: Leni Lozada Department: 112 Room: 2A24 Gender: F Blender / Cook: : 1950 Requested By: Alphonse Ramos Order Number: [id number] Reading MD: Paige Gramajo Measurements Intervals [place] Rate: 93 P: 74 CO: 281 QRS: -49 QRSD: 90 T: 75 QT: 357 QTc: 407 Interpretive Statements SINUS RHYTHM WITH FIRST DEGREE AV BLOCK PATTERN CONSISTENT WITH PULMONARY DISEASE LEFT ANTERIOR FASCICULAR BLOCK LEFT VENTRICULAR HYPERTROPHY AND ST-T CHANGE Electronically Signed On 01-27-2019 16:59:24 EDT by Paige Gramajo
[2019-01-27] MEDS: *HR* Heparin 5,000 UNIT/ML VIAL SQ SCH (17:31)
[2019-01-27] MEDS ORDERED: 0.9 % Sodium Chloride 1,000 ML ONE (17:33)
[2019-01-27] MEDS: Ringers Solution, Lactated 1,000 ML IVC SCH (19:19)
[2019-01-27] MEDS: cefTRIAXone 1,000 MG in Water for inj. (sterile) 20 ML 10 ML IVP SCH (22:59)
[2019-01-27] MEDS: Melatonin 3 MG TABLET PO SCH (23:00)
[2019-01-28] MEDS: *HR* Heparin 5,000 UNIT/ML VIAL SQ SCH ×2 (05:50→17:06)
[2019-01-28] MEDS: Ringers Solution, Lactated 1,000 ML IVC SCH (07:25)
[2019-01-28] MEDS: Insulin LISPRO 300 UNITS/3 ML VIAL SQ SCH ×4 (07:57→22:28)
[2019-01-28] MEDS: Metoprolol XL (24 HR) Succ 50 MG TAB.ER.24H PO SCH (09:57)
[2019-01-28] MEDS: Aspirin 81 MG TAB.CHEW PO SCH (09:57)
[2019-01-28] MEDS: amLODIPine 5 MG TABLET PO SCH (09:57)
[2019-01-28] MEDS: Isosorbide MONOnitrate (24 HR) 60 MG TAB.ER.24H PO SCH (09:58)
[2019-01-28] MEDS: Famotidine 20 MG TABLET PO SCH (10:01)
[2019-01-28] MEDS: traMADol 50 MG TABLET PO PRN ×2 (10:01→22:43)
[2019-01-28] MEDS: Insulin DETEMIR 100 UNIT/ML X5UNITS SQ SCH ×2 (10:28→22:27)
--- NOTE | 2019-01-28 15:09 | Internal Med Progress Note ---
Hospitalist Progress Note - Encounter Date of Encounter: 01/28/19 Time of Encounter: 15:07 - Subjective Interval History: Evaluated patient earlier today. Patient is doing much better. Denies any fevers or chills. No nausea or vomiting. Tolerating diet well. She does complain of neck pain and back pain although it is somewhat improved compared to yesterday. - Exam Vitals: Temp Pulse Resp BP Pulse Ox 98.9 F 68 15 132/69 94 01/28/19 09:56 01/28/19 09:56 01/28/19 09:56 01/28/19 09:56 01/28/19 09:56 Exam: General: Patient is alert, no acute distress, oriented x 3 Respiratory: Good respiratory effort. Normal breath sounds. No wheezing or crackles. Cardiovascular: Regular rate and rhythm. s1 and s2 normal No clicks, rubs, gallops, or murmurs. No pedal edema Abdomen: Abdomen is soft, nontender. Bowel sounds are present Musculoskeletal: Spontaneously moving all extremities Skin: warm, dry, intact. Neuro: Alert oriented x 3 normal cranial nerves, no focal deficits - Assessment and Plan (1) Sepsis Current Visit: Yes Status: Suspected (2) UTI (urinary tract infection) Current Visit: Yes Status: Acute (3) Diabetes Current Visit: Yes Status: Acute (4) Sleep apnea Current Visit: Yes Status: Acute (5) DVT prophylaxis Current Visit: No Status: Acute DVT Prophylaxis: On subcutaneous heparin - Summary of Assessment and Plan Summary of Assessment and Plan: Sepsis due to acute cystitis: Possibly from Escherichia coli infection. Gram- negative rods in urine. Await final culture results. Blood cultures have been negative. Sepsis resolving. WBC count is back to normal. Continue ceftriaxone. Diabetes mellitus type 2: Blood sugars have improved. Continue current sliding scale insulin. Back and neck pain: Chronic pain. Continue Zanaflex and Motrin as needed. Essential hypertension patient blood pressure was low yesterday evening. It has since improved. Continue eat her usual antihypertensive medications. Low risk for complications at this time. - Time Spent with Patient Total time spent is greater than 50% in coordination of care (as documented) at patient's floor/unit and/or counseling patient: Internal Medicine: Result - Labs CBC & Chem 7: 01/27/19 06:31 01/27/19 06:31 Labs: Urine 01/26/19 Range/Units 23:17 Urine Color Yellow (Yellow) Urine Clarity Clear (Clear) Urine pH 6.5 (5.0-8.0) pH Units Ur Specific [place] 1.025 (1.010-1.025) Urine Protein >=300 H (Neg-Trace) mg/dL Urine Glucose (UA) Normal (Normal) mg/dL Consult Discharge Plan - Plan Referrals: Jovana Madsen [Primary Care Provider] - (1) Sepsis Qualifiers: Sepsis type: Escherichia coli Qualified Code(s): A41.51 - Sepsis due to Escherichia coli [E. coli] (2) UTI (urinary tract infection) Qualifiers: Urinary tract infection type: acute cystitis Hematuria presence: with hematuria Qualified Code(s): N30.01 - Acute cystitis with hematuria (3) Diabetes Qualifiers: Diabetes mellitus type: type 2 Diabetes mellitus long winder tender insulin use: with nursing home use Diabetes mellitus complication status: with hyperglycemia Qualified Code(s): E11.65 - Type 2 diabetes mellitus with hyperglycemia; Z79.4 - correction (current) use of insulin (4) Sleep apnea Qualifiers: Sleep apnea type: unspecified type Qualified Code(s): G47.30 - Sleep apnea, unspecified
[2019-01-28] MEDS: tiZANidine 4 MG TABLET PO PRN (15:52)
[2019-01-28] MEDS: cefTRIAXone 1,000 MG in Water for inj. (sterile) 20 ML 10 ML IVP SCH (22:26)
[2019-01-28] MEDS: Melatonin 3 MG TABLET PO SCH (22:27)
[2019-01-29] MEDS: tiZANidine 4 MG TABLET PO PRN (03:30)
[2019-01-29] MEDS: *HR* Heparin 5,000 UNIT/ML VIAL SQ SCH (05:45)
[2019-01-29] MEDS: Insulin LISPRO 300 UNITS/3 ML VIAL SQ SCH ×2 (07:25→12:06)
[2019-01-29] MEDS: Metoprolol XL (24 HR) Succ 50 MG TAB.ER.24H PO SCH (08:41)
[2019-01-29] MEDS: Isosorbide MONOnitrate (24 HR) 60 MG TAB.ER.24H PO SCH (08:41)
[2019-01-29] MEDS: amLODIPine 5 MG TABLET PO SCH (08:41)
[2019-01-29] MEDS: Famotidine 20 MG TABLET PO SCH (08:41)
[2019-01-29] MEDS: Aspirin 81 MG TAB.CHEW PO SCH (08:41)
[2019-01-29] MEDS: Insulin DETEMIR 100 UNIT/ML X5UNITS SQ SCH (08:45)
[2019-01-29] MEDS: traMADol 50 MG TABLET PO PRN (08:47)
--- NOTE | 2019-01-29 11:55 | Discharge Summary ---
- NOTES TO OUTPATIENT PROVIDER Notes to Outpatient Provider: Patient was hospitalized with UTI and sepsis. Blood cultures have been negative. Urine culture positive for Escherichia coli that is pansensitive. Patient will be discharged today on oral antibiotics. Orders not resulted at time of discharge: Pending orders 01/26/19 23:45 Culture,Blood [BC] Stat Date of Encounter: 01/29/19 Time of Encounter: 11:55 - Discharge Diagnosis (1) Sepsis Priority: Primary Status: Acute Qualifiers: Sepsis type: Escherichia coli Qualified Code(s): A41.51 - Sepsis due to Escherichia coli [E. 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 Lozada is a 68 year old female Patient who presented to the ER with complaints of fever or chills and was hospitalized with UTI and sepsis. Blood cultures have been negative. Urine culture positive for Escherichia coli that is pansensitive. Patient will be discharged today on oral antibiotics. She did complain of some neck and back pain which has been exacerbated during her stay in the hospital. Responded to Motrin and tramadol. We will discharge her on short course of tramadol to be used as needed. No signs of Stiffness or rigidity. She can follow-up further with her primary care provider. Discharge discussed with: patient, nurse - Time Spent with Patient Total time spent providing and/or coordinating discharge services: Time spent: Less than 30 minutes (25 min) - Discharge Medications Prescriptions: New Cefdinir [Omnicef] 300 mg PO BID #10 capsule Tramadol HCl [Ultram] 50 mg PO TID PRN 7 Days #20 tab PRN Reason: Moderate Pain Continued metFORMIN [Glucophage] 500 mg PO BIDWM Clopidogrel [Plavix] 75 mg PO DAILY Tizanidine HCl 2 mg PO Q8HR PRN PRN Reason: Muscle Spasm Aspirin [Adult Low Dose Aspirin EC] 81 mg PO DAILY Amitriptyline [Elavil] 25 mg PO HS amLODIPine [Norvasc] 10 mg PO DAILY Citalopram [CeleXA] 30 mg PO DAILY Famotidine [Pepcid] 40 mg PO DAILY hydrOXYzine HCl [Hydroxyzine HCl] 25 mg PO TID PRN PRN Reason: Anxiety Insulin NPH Hum/Reg Insulin Hm [Novolin 70-30 100 Unit/ml Vial] 40 unit SQ QAM Insulin NPH Hum/Reg Insulin Hm [Novolin 70-30 100 Unit/ml Vial] 35 unit SQ DAILY@1700 Isosorbide MONOnitrate (24 HR) [Imdur] 60 mg PO DAILY Melatonin [Melatin] 6 mg PO HS Metoprolol Succinate [Toprol Xl] 100 mg PO DAILY Simvastatin [Zocor] 40 mg PO HS Pramipexole [Mirapex] 0.125 mg PO HS Home Medications: Aspirin [Adult Low Dose Aspirin EC] 81 mg PO DAILY 10/28/15 [History] Clopidogrel [Plavix] 75 mg PO DAILY 10/28/15 [History] Tizanidine HCl 2 mg PO Q8HR PRN 10/28/15 [History] metFORMIN [Glucophage] 500 mg PO BIDWM 10/28/15 [History] Amitriptyline [Elavil] 25 mg PO HS 01/27/19 [History] Citalopram [CeleXA] 30 mg PO DAILY 01/27/19 [History] Famotidine [Pepcid] 40 mg PO DAILY 01/27/19 [History] Insulin NPH Hum/Reg Insulin Hm [Novolin 70-30 100 Unit/ml Vial] 35 unit SQ DAILY@1700 01/27/19 [History] Insulin NPH Hum/Reg Insulin Hm [Novolin 70-30 100 Unit/ml Vial] 40 unit SQ QAM 01/27/19 [History] Isosorbide MONOnitrate (24 HR) [Imdur] 60 mg PO DAILY 01/27/19 [History] Melatonin [Melatin] 6 mg PO HS 01/27/19 [History] Metoprolol Succinate [Toprol Xl] 100 mg PO DAILY 01/27/19 [History] Pramipexole [Mirapex] 0.125 mg PO HS 01/27/19 [History] Simvastatin [Zocor] 40 mg PO HS 01/27/19 [History] amLODIPine [Norvasc] 10 mg PO DAILY 01/27/19 [History] hydrOXYzine HCl [Hydroxyzine HCl] 25 mg PO TID PRN 01/27/19 [History] Cefdinir [Omnicef] 300 mg PO BID #10 capsule 01/29/19 [Rx] Tramadol HCl [Ultram] 50 mg PO TID PRN 7 Days #20 tab 01/29/19 [Rx] Allergies/Adverse Reactions: Allergy/AdvReac Type Severity Reaction Status Date / Time furosemide [From Lasix] Allergy Anaphylaxis Verified 01/26/19 21:49 acetaminophen [From Tylenol] AdvReac Hallucinati Verified 01/26/19 21:49 ng Date of admission: 01/27/19 17:05 Primary care physician: Jovana Madsen Discharging clinician: Alphonse Ramos Anticipated date of discharge: 01/29/19 - Constitutional Vitals: Temp Pulse Resp BP Pulse Ox 98.9 F 61 18 114/56 96 01/29/19 07:22 01/29/19 07:22 01/29/19 07:22 01/29/19 07:22 01/29/19 07:22 General appearance: Present: cooperative, A&O X 3, pleasant, no acute distress, answers questions appropriately Exam: General: Patient is alert, no acute distress,obese, oriented x 3 Respiratory: Good respiratory effort. Normal breath sounds. No wheezing or crackles. Cardiovascular: Regular rate and rhythm. s1 and s2 normal No clicks, rubs, gallops, or murmurs. No pedal edema Abdomen: Abdomen is soft, nontender. Bowel sounds are present Musculoskeletal: Spontaneously moving all extremities Skin: warm, dry, intact. Neuro: Alert oriented x 3 normal cranial nerves, no focal deficits - Patient Status Disposition: Home, Self-Care Condition: Fair Functional capacity at discharge: independent ambulation Overall status at discharge: patient is progressing back to baseline - Discharge Instructions Instructions: Urinary Tract Infection in Women (DC), Diabetes Mellitus Type 2 in Adults (DC), Sepsis (DC) Follow Up With: Jovana Madsen [Primary Care Provider] - (Follow-up with your PCP after your discharge) - Diet and Activity Activity: increase activity as tolerated Diet: diabetic diet, low fat, low cholesterol, low salt diet
[2019-01-29 12:06] VITALS: BP 127/60
== END 2019-01-29 13:17 | disposition home or self-care (01) | DRG 872 ==
LOC: EMEROOARM 21:48 → 2ANU 21:48 → SUATTDRO 01-27 00:38 → 2ANU 01-27 01:18
PROVIDERS: ADMIT Family Medicine; ATTEND Internal Medicine

== ENCOUNTER 2019-01-31 16:56 | Observation (INO) ==
[2019-01-31] MEDS ORDERED: Isovue-370 500 ML BOTTLE IVP ONE (17:06)
[2019-01-31] MEDS ORDERED: Ondansetron 4 MG/2 ML VIAL IVP ONE (17:08)
[2019-01-31 17:18] LABS: Hematocrit 42.1 % (35.3-44.9); Hemoglobin 13.8 g/dL (11.5-15.4); Mean Corpuscular HGB Conc 32.8 g/dL (31.6-35.5); Mean Corpuscular Hemoglobin 29.2 pg (28.0-33.3); Mean Platelet Volume 10.8 fL (9.4-12.4); Platelet Count 184 K/mcL (140-400); Red Blood Count 4.73 M/mcL (3.82-4.97); Red Cell Distribution Width 12.8 % (11.5-14.5); White Blood Count 7.7 K/mcL (4.3-11.1)
--- NOTE | 2019-01-31 17:20 | Emergency Department Note ---
Disposition Clinical Impression: Numbness and tingling, Facial droop Disposition: Admitted As Inpatient Condition: Fair Referrals: Jovana Madsen [Primary Care Provider] - Forms: ED Satisfaction Letter Time of Disposition: 18:19 Neuro HPI - General Chief Complaint: ED Weakness Stated Complaint: Right sided weakness Time Seen by Provider: 01/31/19 17:06 Source: EMS Mode of arrival: ambulatory Limitations: no limitations Nursing Notes Reviewed: Yes Vital Signs Reviewed: Yes - History of Present Illness HPI Narrative: Patient is a 68-year-old female who presents with new onset right-sided numbness and tingling. Patient with known history of TIAs 5 in the past. She has no residual neurological deficits following these events. 20 minutes prior to arrival, patient was sitting in her physician's office, she suddenly began to robison ve a cramp in her right hand and it felt very heavy with decreased sensation in her daughter noticed that she had right-sided facial droop. They immediately rest order to the ER for further evaluation. Patient currently denies any vision changes, headache, double vision, abdominal pain, nausea or vomiting. Patient is currently also on Plavix and aspirin daily secondary to history of TIAs. She did take these doses this morning. No recent trauma or fall. - Related Data Home Medications: Home Medications Medication Instructions Recorded Confirmed Clopidogrel [Plavix] 75 mg PO DAILY 10/28/15 01/31/19 Tizanidine HCl 2 mg PO Q8HR PRN 10/28/15 01/31/19 metFORMIN [Glucophage] 500 mg PO BIDWM 10/28/15 01/31/19 Amitriptyline [Elavil] 25 mg PO HS 01/27/19 01/31/19 Citalopram [CeleXA] 30 mg PO DAILY 01/27/19 01/31/19 Famotidine [Pepcid] 40 mg PO DAILY 01/27/19 01/31/19 Insulin NPH Hum/Reg Insulin Hm 35 unit SQ QPM 01/27/19 01/31/19 [Novolin 70-30 100 Unit/ml Vial] Insulin NPH Hum/Reg Insulin Hm 40 unit SQ QAM 01/27/19 01/31/19 [Novolin 70-30 100 Unit/ml Vial] Isosorbide MONOnitrate (24 HR) 60 mg PO DAILY 01/27/19 01/31/19 [Imdur] Melatonin [Melatin] 6 mg PO HS 01/27/19 01/31/19 Metoprolol Succinate [Toprol Xl] 100 mg PO DAILY 01/27/19 01/31/19 Pramipexole [Mirapex] 0.125 mg PO HS 01/27/19 01/31/19 Simvastatin [Zocor] 40 mg PO HS 01/27/19 01/31/19 amLODIPine [Norvasc] 10 mg PO DAILY 01/27/19 01/31/19 hydrOXYzine HCl [Hydroxyzine HCl] 25 mg PO TID PRN 01/27/19 01/31/19 Aspirin [Lo-Dose Aspirin EC] 81 mg PO DAILY 01/31/19 01/31/19 Previous Rx's Medication Instructions Recorded Cefdinir [Omnicef] 300 mg PO BID #10 capsule 01/29/19 Tramadol HCl [Ultram] 50 mg PO TID PRN 7 Days #20 tab 01/29/19 Allergies/Adverse Reactions: Allergies Allergy/AdvReac Type Severity Reaction Status Date / Time furosemide [From Lasix] Allergy Anaphylaxis Verified 01/26/19 21:49 acetaminophen [From Tylenol] AdvReac Hallucinati Verified 01/26/19 21:49 ng All systems ED: reviewed and negative except as stated. Review of Systems: As Per HPI Constitutional: Denies: fever, chills ENT ED: Denies: congestion Cardiovascular: Denies: chest pain, palpitations, syncope Respiratory: Denies: cough, dyspnea, wheezes Gastrointestinal: Denies: abdominal pain, nausea, vomiting, diarrhea, hematemesis Genitourinary: Denies: dysuria Musculoskeletal: Denies: back pain Integumentary: Denies: rash Neurological: Reports: weakness, numbness, paresthesias. 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 - Social History Smoking Status: Former smoker Smokeless Tobacco Status: No Alcohol use: Reports: none Drug use: Reports: none Physical Exam - General Limitations: no limitations General appearance: alert - Head Head exam: atraumatic, normocephalic, normal inspection - Eye Eye exam: Present: normal appearance, PERRL, EOMI - ENT ENT exam: normal exam, normal oropharynx, mucous membranes moist - Neck Neck exam: Present: normal inspection, full ROM, trachea midline - Chest Chest inspection: Present: normal inspection, symmetric chest wall rise - Respiratory Respiratory exam: Present: normal lung sounds bilaterally - Cardiovascular Cardiovascular exam: Present: regular rate, normal rhythm, normal heart sounds - Abdominal Exam Abdominal exam: Present: soft, Non-Tender. Absent: tenderness, distention, guarding, rebound, rigidity - Extremities Exam Extremities exam: Present: normal inspection, full ROM. Absent: tenderness, pedal edema - Expanded Neurological Exam Patient oriented to: Present: person, place, time Speech: Present: fluid speech Cranial nerves: EOM function (II, III, IV, ): Normal, facial sensation (V): Normal, facial palsy (VII): Abnormal Right, spinal accessory function (XI): Normal, tongue deviation (XII): Normal Cerebellar function: finger to nose: Normal, heel to tay: Normal Motor strength - LUE: 5/5 Motor strength - RUE: 5/5 Motor strength - LLE: 5/5 Motor strength - RLE: 5/5 Upper motor neuron exam: minh neglect: Absent bilaterally, pronator drift: Absent bilaterally Sensory exam upper extremity: light touch: Abnormal Right Sensory exam lower extremity: light touch: Abnormal Right Coma Scale Eye Opening: Spontaneous Coma Scale Motor Response: Obeys Commands Coma Scale Verbal Response: Oriented Coma Scale Total: 15 - Psychiatric Psychiatric exam: Present: normal affect, normal mood - Skin Skin exam: Present: warm, dry, intact, normal color Course Course Narrative: Patient is a 68-year-old female who is coming in to the ER with new onset right- sided heaviness, numbness and tingling with right-sided facial droop. Patient with history of multiple TIAs in the past. Has no history of neurological deficit since this time. Last known well was 20 minutes prior to arrival, when she had immediate right-sided facial droop with right-sided heaviness right-weston ed numbness. On arrival, initial evaluation showed vital signs within normal limits, a stroke alert was called immediately, patient has NIH score of 2. GCS of 15. As a stroke alert was called, CT head, CTA of the head and neck were performed as well as further blood work. Was called by radiology as there was no acute stroke noted on CT the head, pending CTA at this time. [facility] neurologists, Dr. Max was evaluating the patient, does not recommend TPA at this time, we will my attending and I agree with this assessment, patient however will be admitted for further evaluation. CT of the head and neck are negative for acute changes. Patient is a 30 taken her Plavix and aspirin at home, this will not be given again. Patient is a 30 minutes appropriately from medication standpoint. Patient is not a TPA candidate per neurology as well as our evaluation. Patient is remained stable remaining in a GCS of 15 with an NIH of 2, symptoms have not resolved at this time. Patient will be admitted for further neurological and stroke workup and evaluation. - Consultations Consultation #1: Spoke with radiologist at 1725, no obvious stroke notified on the CT of the head, pending CTA of the head. Consultation #2: Spoke with [facility] neurologists following video evaluation of the patient, Dr. Max at 1740, who at this point in time states that the patient should be admitted for further stroke evaluation, however patient is not currently a TPA candidate, I agree as well as my attending with this assessment. TPA will not be given. Vital Signs Temperature 98.0 F 01/31/19 16:57 Pulse Rate 59 01/31/19 16:57 Respiratory Rate 16 01/31/19 16:57 Blood Pressure 146/66 01/31/19 16:57 O2 Sat by Pulse Oximetry 97 01/31/19 16:57 Temperature 98.0 F 01/31/19 16:57 Pulse Rate 62 01/31/19 18:50 Respiratory Rate 16 01/31/19 18:50 Blood Pressure 156/73 01/31/19 18:50 O2 Sat by Pulse Oximetry 92 01/31/19 18:50 Oxygen Delivery Oxygen Delivery Room Air Neuro Symptoms/Deficit - Medical Records Medical records reviewed: Yes I reviewed the patient's medical records. - Lab Data Lab results reviewed: Yes I reviewed the patient's lab results. Result diagrams: 01/31/19 17:05 01/31/19 17:05 Lab Results 01/31/19 01/31/19 01/31/19 Range/Units 17:05 17:05 17:05 WBC 7.7 (4.3-11.1) K/mcL RBC 4.73 (3.82-4.97) M/mcL Hgb 13.8 (11.5-15.4) g/dL Hct 42.1 (35.3-44.9) % MCV 89.0 (83.0-100.0) fL MCH 29.2 (28.0-33.3) pg MCHC 32.8 (31.6-35.5) g/dL RDW 12.8 (11.5-14.5) % Plt Count 184 (140-400) K/mcL MPV 10.8 (9.4-12.4) fL PT 12.8 H (9.4-12.1) Seconds INR 1.1 APTT 34.8 (26.0-36.0) Seconds Sodium 136 (136-145) mEq/L Potassium 4.8 (3.5-5.1) mEq/L Chloride 101 (98-107) mEq/L Carbon Dioxide 29 (23-29) mEq/L BUN 25 H (8-23) mg/dL Creatinine 0.87 (0.60-1.20) mg/dL Est GFR ( Amer) > 60 (> 60) Est GFR (Non-Af Amer) > 60 (> 60) BUN/Creatinine Ratio 29 H (6-26) Glucose 147 H (70-105) mg/dL POC Glucose (70-99) mg/dL Calculated Osmolality 289 (280-300) Calcium 9.5 (8.6-10.3) mg/dL Troponin I < 0.03 (< 0.04) ng/mL Urine Color (Yellow) Urine Clarity (Clear) Urine pH (5.0-8.0) pH Units Ur Specific [place] (1.010-1.025) Urine Protein (Neg-Trace) mg/dL Urine Glucose (UA) (Normal) mg/dL Urine Ketones (Negative) mg/dL Urine Blood (Negative) Urine Nitrite (Negative) Urine Bilirubin (Negative) Urine Urobilinogen (Normal) mg/dL Ur Leukocyte Esterase (Negative) Urine Microscopic RBC (0-3) per hpf Urine Microscopic WBC (0-3) per hpf Ur Squamous Epith Cells (None-Few) per lpf Urine Bacteria (None-Few) per hpf Hyaline Casts (None-Few) per lpf Ur Culture Indicated? (NO) 01/31/19 01/31/19 Range/Units 17:06 17:59 WBC (4.3-11.1) K/mcL RBC (3.82-4.97) M/mcL Hgb (11.5-15.4) g/dL Hct (35.3-44.9) % MCV (83.0-100.0) fL MCH (28.0-33.3) pg MCHC (31.6-35.5) g/dL RDW (11.5-14.5) % Plt Count (140-400) K/mcL MPV (9.4-12.4) fL PT (9.4-12.1) Seconds INR APTT (26.0-36.0) Seconds Sodium (136-145) mEq/L Potassium (3.5-5.1) mEq/L Chloride (98-107) mEq/L Carbon Dioxide (23-29) mEq/L BUN (8-23) mg/dL Creatinine (0.60-1.20) mg/dL Est GFR ( Amer) (> 60) Est GFR (Non-Af Amer) (> 60) BUN/Creatinine Ratio (6-26) Glucose (70-105) mg/dL POC Glucose 160 H (70-99) mg/dL Calculated Osmolality (280-300) Calcium (8.6-10.3) mg/dL Troponin I (< 0.04) ng/mL Urine Color Yellow (Yellow) Urine Clarity Cloudy A (Clear) Urine pH 6.0 (5.0-8.0) pH Units Ur Specific [place] 1.030 H (1.010-1.025) Urine Protein Trace (Neg-Trace) mg/dL Urine Glucose (UA) Normal (Normal) mg/dL Urine Ketones Negative (Negative) mg/dL Urine Blood Negative (Negative) Urine Nitrite Negative (Negative) Urine Bilirubin Negative (Negative) Urine Urobilinogen Normal (Normal) mg/dL Ur Leukocyte Esterase Small H (Negative) Urine Microscopic RBC 0-3 (0-3) per hpf Urine Microscopic WBC 15-30 H (0-3) per hpf Ur Squamous Epith Cells Many H (None-Few) per lpf Urine Bacteria None Seen (None-Few) per hpf Hyaline Casts None Seen (None-Few) per lpf Ur Culture Indicated? YES A (NO) - Radiology Data Radiology results reviewed: Yes I reviewed the patient's radiology results. Head CT 01/31/19 17:06 IMPRESSION: No acute intracranial abnormality. Findings were discussed with Dr. Corona at 5:24 pm on 01/31/2019. D/ / Mo Du MD / Mo Du MD Interpreting Provider: Mo Du MD Head CT 01/31/19 17:06 IMPRESSION: No acute intracranial abnormality. Findings were discussed with Dr. Corona at 5:24 pm on 01/31/2019. D/ / oM Du MD / Mo Du MD Interpreting Provider: Mo Du MD Head CTA 01/31/19 17:06 IMPRESSION: 1. No acute arterial abnormality in the head or neck. 2. 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 3. Moderate stenosis of the proximal right subclavian artery. D/ / Jaquan Fraire / Jaquan Fraire Interpreting Provider: Jaquan Fraire Chest X-Ray 01/31/19 17:07 IMPRESSION: No evidence of acute cardiopulmonary disease. D/ / Juan Tate MD / Juan Tate MD Interpreting Provider: Juan Tate MD Neck CTA 01/31/19 17:07 IMPRESSION: 1. No acute arterial abnormality in the head or neck. 2. 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 3. Moderate stenosis of the proximal right subclavian artery. D/ / Jaquan Fraire / Jaquan Fraire Interpreting Provider: Jaquan Fraire - EKG Data EKG attestation: Yes I reviewed and interpreted this EKG. EKG results narrative: EKG obtained at 1737 ventricular rate of 62, regular rhythm, no ST segment elevation or depression. No T-wave changes. prolonged OR interval at 268, LVH, OR interval is unchanged from previous obtained on 01/27/2019. NIH Stroke Scale - Level of Consciousness LOC: Alert - LOC Questions LOC Questions: Answers both correctly - LOC Commands LOC Commands: Performs both correctly - Best Gaze Best Gaze: Normal - Visual Visual: No visual loss - Facial Palsy Facial Palsy: Partial, total, or near-total paralysis of lower face - Motor Arms Motor Arm-Left: No drift for 10 seconds Motor Arm-Right: No drift for 10 seconds - Motor Legs Motor Leg-Left: No drift for 5 seconds Motor Leg-Right: No drift for 5 seconds - Limb Ataxia Limb Ataxia: Absent of affected limb too weak to perform exam - Sensory Sensory: Mild to moderate loss, "not as sharp" - Best Language Best Language: No aphasia - Dysarthria Dysarthria: Normal - Extinction and Inattention Extinction and Inattention: Normal - NIHSS Total Score NIHSS Total Score: 3 TPA Checklist - Source Information Source: Family - LKW: 3-4.5 hrs Add. Warnings/Precautions Patient/family understanding: The patient/family members have been counseled and understood the risk, benefit, and alternatives of treatment. S.B.A.R. - S.B.A.Yoon Situation: Demographics, MOA Background: Presenting Complaint, Relevant PMH, Meds, & Allergies Assessment: Vital Signs, Course and respsone to treatment, Exam Concerns, Patient/Family Expectation, Pertinant Lab Results, Outstanding Labs Recommendation: Barrier(s) to disposition, Recommendation based on pending studies, treatments, or consults [id number] Report Given to: Dr. Greta ReichAJama Repor Time: 19:23 (accepted) Attestation Statement - Attestation Attestation: I, Trace Peralta DO, examined this patient [id number] and my medical decision-making was reviewed with Dr. Shailesh Corona , Resident Physician. I agree with the documented findings, disposition and treatment plan as described except to the extent set forth below. I personally supervised and was present for the davey/critical portions of the procedures completed by the resident documented below. Please see my progress notes for details.
[2019-01-31 17:25] LABS: INR 1.1; Prothrombin Time 12.8 Seconds (9.4-12.1)
[2019-01-31 17:28] LABS: Activated Partial Thrombo Time 34.8 Seconds (26.0-36.0)
[2019-01-31 17:32] LABS: BUN/Creatinine Ratio 29 (6-26); Blood Urea Nitrogen 25 mg/dL (8-23); Calcium 9.5 mg/dL (8.6-10.3); Carbon Dioxide 29 mEq/L (23-29); Chloride 101 mEq/L (98-107); Glucose 147 mg/dL (70-105); Osmolality,Calculated 289 (280-300); Potassium 4.8 mEq/L (3.5-5.1); Sodium 136 mEq/L (136-145); eGFR For African Americans > 60 (> 60); eGFR For Non-African Americans > 60 (> 60)
[2019-01-31 17:34] LABS: Troponin I < 0.03 ng/mL (< 0.04)
--- NOTE | 2019-01-31 17:48 | Emergency Department Note ---
Disposition Clinical Impression: Numbness and tingling, Facial droop Disposition: Admitted As Inpatient Condition: Fair Time of Disposition: 18:00 General Adult HPI - General Chief complaint: ED Weakness Stated complaint: Right sided weakness Time Seen by Provider: 01/31/19 17:06 Source: EMS Limitations: no limitations - History of Present Illness Pain Scale: 0 - Related Data Home Medications Medication Instructions Recorded Confirmed Clopidogrel [Plavix] 75 mg PO DAILY 10/28/15 01/31/19 Tizanidine HCl 2 mg PO Q8HR PRN 10/28/15 01/31/19 metFORMIN [Glucophage] 500 mg PO BIDWM 10/28/15 01/31/19 Amitriptyline [Elavil] 25 mg PO HS 01/27/19 01/31/19 Citalopram [CeleXA] 30 mg PO DAILY 01/27/19 01/31/19 Famotidine [Pepcid] 40 mg PO DAILY 01/27/19 01/31/19 Insulin NPH Hum/Reg Insulin Hm 35 unit SQ QPM 01/27/19 01/31/19 [Novolin 70-30 100 Unit/ml Vial] Insulin NPH Hum/Reg Insulin Hm 40 unit SQ QAM 01/27/19 01/31/19 [Novolin 70-30 100 Unit/ml Vial] Isosorbide MONOnitrate (24 HR) 60 mg PO DAILY 01/27/19 01/31/19 [Imdur] Melatonin [Melatin] 6 mg PO HS 01/27/19 01/31/19 Metoprolol Succinate [Toprol Xl] 100 mg PO DAILY 01/27/19 01/31/19 Pramipexole [Mirapex] 0.125 mg PO HS 01/27/19 01/31/19 Simvastatin [Zocor] 40 mg PO HS 01/27/19 01/31/19 amLODIPine [Norvasc] 10 mg PO DAILY 01/27/19 01/31/19 hydrOXYzine HCl [Hydroxyzine HCl] 25 mg PO TID PRN 01/27/19 01/31/19 Aspirin [Lo-Dose Aspirin EC] 81 mg PO DAILY 01/31/19 01/31/19 Previous Rx's Medication Instructions Recorded Cefdinir [Omnicef] 300 mg PO BID #10 capsule 01/29/19 Tramadol HCl [Ultram] 50 mg PO TID PRN 7 Days #20 tab 01/29/19 Allergies Allergy/AdvReac Type Severity Reaction Status Date / Time furosemide [From Lasix] Allergy Anaphylaxis Verified 01/26/19 21:49 acetaminophen [From Tylenol] AdvReac Hallucinati Verified 01/26/19 21:49 ng Past Medical History - Past Medical History Medical history: Reports: coronary artery disease, CVA, diabetes, hypertension Surgical history: Reports: other (unknown; pt unable to provide history) Psychiatric history: Reports: anxiety, depression IN [employer] history: Reports: no IN [employer] history - Social History Smoking Status: Former smoker Smokeless Tobacco Status: No Alcohol use: Reports: none Drug use: Reports: none Physical Exam - General Limitations: no limitations General appearance: alert Course Vital Signs Temperature 98.0 F 01/31/19 16:57 Pulse Rate 59 01/31/19 16:57 Respiratory Rate 16 01/31/19 16:57 Blood Pressure 146/66 01/31/19 16:57 O2 Sat by Pulse Oximetry 97 01/31/19 16:57 Temperature 98.0 F 01/31/19 16:57 Pulse Rate 62 01/31/19 19:43 Respiratory Rate 16 01/31/19 18:50 Blood Pressure 133/66 01/31/19 19:43 O2 Sat by Pulse Oximetry 92 01/31/19 18:50 Oxygen Delivery Oxygen Delivery Room Air Medical Decision Making - Lab Data Result diagrams: 01/31/19 17:05 01/31/19 17:05 Lab Results 01/31/19 01/31/19 01/31/19 Range/Units 17:05 17:05 17:05 WBC 7.7 (4.3-11.1) K/mcL RBC 4.73 (3.82-4.97) M/mcL Hgb 13.8 (11.5-15.4) g/dL Hct 42.1 (35.3-44.9) % MCV 89.0 (83.0-100.0) fL MCH 29.2 (28.0-33.3) pg MCHC 32.8 (31.6-35.5) g/dL RDW 12.8 (11.5-14.5) % Plt Count 184 (140-400) K/mcL MPV 10.8 (9.4-12.4) fL PT 12.8 H (9.4-12.1) Seconds INR 1.1 APTT 34.8 (26.0-36.0) Seconds Sodium 136 (136-145) mEq/L Potassium 4.8 (3.5-5.1) mEq/L Chloride 101 (98-107) mEq/L Carbon Dioxide 29 (23-29) mEq/L BUN 25 H (8-23) mg/dL Creatinine 0.87 (0.60-1.20) mg/dL Est GFR ( Amer) > 60 (> 60) Est GFR (Non-Af Amer) > 60 (> 60) BUN/Creatinine Ratio 29 H (6-26) Glucose 147 H (70-105) mg/dL POC Glucose (70-99) mg/dL Calculated Osmolality 289 (280-300) Calcium 9.5 (8.6-10.3) mg/dL Troponin I < 0.03 (< 0.04) ng/mL Urine Color (Yellow) Urine Clarity (Clear) Urine pH (5.0-8.0) pH Units Ur Specific [place] (1.010-1.025) Urine Protein (Neg-Trace) mg/dL Urine Glucose (UA) (Normal) mg/dL Urine Ketones (Negative) mg/dL Urine Blood (Negative) Urine Nitrite (Negative) Urine Bilirubin (Negative) Urine Urobilinogen (Normal) mg/dL Ur Leukocyte Esterase (Negative) Urine Microscopic RBC (0-3) per hpf Urine Microscopic WBC (0-3) per hpf Ur Squamous Epith Cells (None-Few) per lpf Urine Bacteria (None-Few) per hpf Hyaline Casts (None-Few) per lpf Ur Culture Indicated? (NO) 01/31/19 01/31/19 Range/Units 17:06 17:59 WBC (4.3-11.1) K/mcL RBC (3.82-4.97) M/mcL Hgb (11.5-15.4) g/dL Hct (35.3-44.9) % MCV (83.0-100.0) fL MCH (28.0-33.3) pg MCHC (31.6-35.5) g/dL RDW (11.5-14.5) % Plt Count (140-400) K/mcL MPV (9.4-12.4) fL PT (9.4-12.1) Seconds INR APTT (26.0-36.0) Seconds Sodium (136-145) mEq/L Potassium (3.5-5.1) mEq/L Chloride (98-107) mEq/L Carbon Dioxide (23-29) mEq/L BUN (8-23) mg/dL Creatinine (0.60-1.20) mg/dL Est GFR ( Amer) (> 60) Est GFR (Non-Af Amer) (> 60) BUN/Creatinine Ratio (6-26) Glucose (70-105) mg/dL POC Glucose 160 H (70-99) mg/dL Calculated Osmolality (280-300) Calcium (8.6-10.3) mg/dL Troponin I (< 0.04) ng/mL Urine Color Yellow (Yellow) Urine Clarity Cloudy A (Clear) Urine pH 6.0 (5.0-8.0) pH Units Ur Specific [place] 1.030 H (1.010-1.025) Urine Protein Trace (Neg-Trace) mg/dL Urine Glucose (UA) Normal (Normal) mg/dL Urine Ketones Negative (Negative) mg/dL Urine Blood Negative (Negative) Urine Nitrite Negative (Negative) Urine Bilirubin Negative (Negative) Urine Urobilinogen Normal (Normal) mg/dL Ur Leukocyte Esterase Small H (Negative) Urine Microscopic RBC 0-3 (0-3) per hpf Urine Microscopic WBC 15-30 H (0-3) per hpf Ur Squamous Epith Cells Many H (None-Few) per lpf Urine Bacteria None Seen (None-Few) per hpf Hyaline Casts None Seen (None-Few) per lpf Ur Culture Indicated? YES A (NO) Critical Care Time Critical Care Time: Yes Total Critical Care Time: 45 Attestation: Critical care performed: Time is exclusive of separately billable procedures. Time includes: direct patient care, patient reassessment, coordination of patient care, interpretation of data (laboratory data, radiology data, and respiratory data), review of patient's medical records, medical consultation and documentation of patient care. Procedures included in critical care time: Procedures excluded from critical care time: Attestation Statement - Attestation Attestation: I, Trace Peralta DO, examined this patient [id number] and my medical decision-making was reviewed with Dr. Shailesh Corona , Resident Physician. I agree with the documented findings, disposition and treatment plan as described except to the extent set forth below. I personally supervised and was present for the davey/critical portions of the procedures completed by the resident documented below. Please see my progress notes for details. 68-year-old female presents emergency room for evaluation of right-sided facial droop that happened approximately 20 minutes prior to arrival here to the ED. Patient denies any recent falls trauma or injury. She was discharged from the hospital within the last 24 hours after being treated for urosepsis. Vital signs reviewed and are stable in triage. Patient is alert she is oriented she answers questions appropriately. She denies any chest pain or shortness of breath. She has not had any specific headache vision changes nausea vomiting or diarrhea. Denies any fevers or chills. She does have what she describes as a heaviness in her right upper extremity and some tingling sensation to her skin. The daughter noted that she had facial droop the came on acutely. Patient is otherwise showing right-sided facial droop sparing of the forehead. Her NIH stroke evaluation appears to be a 3 at this time. Median on arrival patient had a stroke alert called secondary to her described history of for TIAs. She is currently on aspirin and Plavix at home. Head is atraumatic. Pupils are equal round reactive. Extracted muscles are intact. Oropharynx is patent. Trachea is midline. She has no stridor no trismus. Lungs are clear. Heart is regular. She has normal finger to nose testing as well as no visible signs of cerebellar dysfunction or ataxia. She has no signs of uvular deviation or soft palate is symmetrical. Her evaluation is otherwise benign. Patient was screening labs completed as well as the stroke evaluation started at this point. Disposition to be determined once full workup and treatment course I been established. 45 minutes of critical care applied secondary to the patient's described strokelike symptoms in the stroke alert being called. EKG has been reviewed by myself will be documented in the resident physician's note. See detailed documentation the physical exam, medical intervention, medical decision-making and disposition in the resident physician's note. [id number] Dr. Max has reviewed the case via the [facility] robot. She is requesting the patient not receive TPA at this point secondary to the minimal presentation symptoms at this point with no significant deficits. Patient will have the CT angiographies of the head and neck completed and admission process to the hospital to be established. Patient is otherwise clinically stable and in no distress at this time. Aspirin will be given considering the CT scan is read as negative. Patient is otherwise stable. Patient will be admitted for further evaluation and management 1800 All the imaging modalities are negative at this time. The hospitalist has been paged for the admission process to be completed. Patient was discussed at length. No other acute concerns or issues. Patient will be admitted for TIA symptoms of medical management. Patient otherwise asymptomatic and in no distress here in the emergency department.
[2019-01-31] MEDS: 0.9 % Sodium Chloride 1,000 ML IVC SCH ×2 (17:57→22:53)
[2019-01-31 18:30] LABS: Bilirubin,Urine Negative (Negative); Blood,Urine Negative (Negative); Clarity,Urine Cloudy (Clear); Color,Urine Yellow (Yellow); Glucose,Urine (UA) Normal (Normal); Ketones,Urine Negative (Negative); Leukocyte Esterase,Urine Small (Negative); Nitrite,Urine Negative (Negative); Protein,Urine Trace mg/dL (Neg-Trace); Urobilinogen,Urine Normal (Normal)
[2019-01-31 18:33] LABS: Bacteria,Urine None Seen per hpf (None-Few); Hyaline Casts,Urine None Seen per lpf (None-Few); Squamous Epithelial Cell,Urine Many per lpf (None-Few); WBC,Urine 15-30 per hpf (0-3)
[2019-01-31 18:45] LABS: RBC,Urine 0-3 per hpf (0-3)
--- NOTE | 2019-01-31 19:37 | Internal Med History&Physical ---
Date of Encounter: 01/31/19 Time of Encounter: 19:36 Internal Medicine - H&P: HPI Chief complaint: Strokelike symptoms History of present illness: Ms. Lozada is a 68 year old female with a past medical history of TIAs 5, coronary artery disease, hypertension, diabetes and bipolar disorder who presented to the ED due to concern for strokelike symptoms. Patient states that earlier today around 4:30 while at her PCPs office she suddenly began having cramps involving her right index finger associated with numbness in her right upper and lower extremity associated with right-sided facial numbness as well. Her physician also noted right-sided facial drooping and send her for further evaluation. Patient is also complaining of a headache involving the back of the head and right side of her scalp associated with sensitivity to bright lights. Patient denies any history of migraines. No reports of fever, chills, shortness of breath or chest pain. Patient is currently also on Plavix and aspirin daily secondary to history of TIAs. She did take these doses this morning. No recent trauma or fall. Patient was recently admitted and discharged on the after treatment for UTI with sepsis. Vitals on arrival were relatively stable. Laboratory workup was unremarkable. EKG showed sinus rhythm unchanged from previous EKG in the absence of any ST or T-wave changes concerning for ischemia. CTA of the head and neck showed no acute intracranial abnormality with moderate stenosis of the right posterior cerebral artery and proximal right subclavian artery. On my assessment patient was alert oriented 3, pleasant and conversive. Right-sided facial droop was noted. Will admit for further evaluation for possible TIA/CVA. Patient will be full code. Past Med Surg Social Fam HX - Past Medical History Medical history: coronary artery disease, CVA, diabetes, hypertension Additional medical history: TIA x 5 Psychiatric history: anxiety, depression - Past Surgical History Surgical History: other (unknown; pt unable to provide history) Additional surgical history: cardiac stent - Social History Smoking Status: Former smoker Smokeless Tobacco Status: No Alcohol use: none Drug use: none - Family History Mother Hx Family Endocrine Disorder: Yes Father Family Member Ethnicity: Non- Living Status: Hx Family Cancer: Yes (Stomach) Internal Medicine - H&P: Meds Clopidogrel [Plavix] 75 mg PO DAILY 10/28/15 [History] Tizanidine HCl 2 mg PO Q8HR PRN 10/28/15 [History] metFORMIN [Glucophage] 500 mg PO BIDWM 10/28/15 [History] Amitriptyline [Elavil] 25 mg PO HS 01/27/19 [History] Citalopram [CeleXA] 30 mg PO DAILY 01/27/19 [History] Famotidine [Pepcid] 40 mg PO DAILY 01/27/19 [History] Insulin NPH Hum/Reg Insulin Hm [Novolin 70-30 100 Unit/ml Vial] 35 unit SQ QPM 01/27/19 [History] Insulin NPH Hum/Reg Insulin Hm [Novolin 70-30 100 Unit/ml Vial] 40 unit SQ QAM 0 01/27/19 [History] Isosorbide MONOnitrate (24 HR) [Imdur] 60 mg PO DAILY 01/27/19 [History] Melatonin [Melatin] 6 mg PO HS 01/27/19 [History] Metoprolol Succinate [Toprol Xl] 100 mg PO DAILY 01/27/19 [History] Pramipexole [Mirapex] 0.125 mg PO HS 01/27/19 [History] Simvastatin [Zocor] 40 mg PO HS 01/27/19 [History] amLODIPine [Norvasc] 10 mg PO DAILY 01/27/19 [History] hydrOXYzine HCl [Hydroxyzine HCl] 25 mg PO TID PRN 01/27/19 [History] Tramadol HCl [Ultram] 50 mg PO TID PRN 7 Days #20 tab 01/29/19 [Rx] Aspirin [Lo-Dose Aspirin EC] 81 mg PO DAILY 01/31/19 [History] Allergy/AdvReac Type Severity Reaction Status Date / Time furosemide [From Lasix] Allergy Anaphylaxis Verified 01/26/19 21:49 acetaminophen [From Tylenol] AdvReac Hallucinati Verified 01/26/19 21:49 ng All Systems PM: A 10-system review of systems was performed and is negative for pertinent findings except as documented above in the HPI. - Constitutional Constitutional: no chills, no fever(s), no night sweats - EENT Eyes: no change in vision, no discharge, no pain, no photophobia Ears: no ear discharge, no ear pain, no tinnitus Nose, mouth and throat: no dysphagia, no nasal discharge, no neck pain, no sore throat - Cardiovascular Cardiovascular ROS IM: no chest pain, no diaphoresis, no dyspnea, no lightheadedness, no palpitations, no syncope - Respiratory Respiratory: no cough, no dyspnea, no wheezing, no excessive phlegm production - Gastrointestinal Gastrointestinal: no abdominal pain, no diarrhea, no hematemesis, no hematochezia, no melena, no nausea, no vomiting - Genitourinary Genitourinary: no change in urinary stream, no dysuria, no flank pain, no hematuria - Musculoskeletal Musculoskeletal ROS IM: no numbness, no tingling - Integumentary Integumentary IM: no rash, no unusual bruising - Neurological Neurological ROS: no confusion, no convulsions, no focal weakness, no numbness, no tingling, no tremor(s) - Hematologic/Lymphatic Hematologic/Lymphatic: no easy bruising - Constitutional Vitals: Temp Pulse Resp BP Pulse Ox 98.0 F 62 16 156/73 92 01/31/19 16:57 01/31/19 18:50 01/31/19 18:50 01/31/19 18:50 01/31/19 18:50 Exam: General: Alert and oriented 3 lying in bed in no acute distress Skin:Normal color, no rash, no lesions. HEENT:EOM, pupils equal, round and reactive. Cardiovascular:Normal S1 & S2, no rubs, murmurs or gallops. No JVD. Pulse regular. Lungs:Normal breath sounds, no wheezes or crackles. Abdomen:Soft, non-tender, no rigidity. Extremities:No deformity, no edema or tenderness, no joint swelling or clubbing. Neurological:Normal cognition; cranial nerves II through XII intact. Right- sided facial droop. Hyperesthesia on the right side of the face and lower extremity. No pronator drift. No dysmetria. 5 out of 5 bilateral upper and lower muscle strength. Pulses:Carotid and radial pulses normal +2. Rest of the physical exam is non contributory Internal Med - H&P Results - Labs CBC & Chem 7: 01/31/19 17:05 02/01/19 04:10 Labs: Short CBC 01/31/19 Range/Units 17:05 WBC 7.7 (4.3-11.1) K/mcL Hgb 13.8 (11.5-15.4) g/dL Hct 42.1 (35.3-44.9) % Plt Count 184 (140-400) K/mcL BMP 01/31/19 17:05 Sodium 136 Potassium 4.8 Chloride 101 Carbon Dioxide 29 BUN 25 H Creatinine 0.87 Glucose 147 H Calcium 9.5 Cardiac Enzymes 01/31/19 Range/Units 17:05 Troponin I < 0.03 (< 0.04) ng/mL Urine 01/31/19 Range/Units 17:59 Urine Color Yellow (Yellow) Urine Clarity Cloudy A (Clear) Urine pH 6.0 (5.0-8.0) pH Units Ur Specific [place] 1.030 H (1.010-1.025) Urine Protein Trace (Neg-Trace) mg/dL Urine Glucose (UA) Normal (Normal) mg/dL - Impressions ITS Impressions Head CT 01/31/19 17:06 IMPRESSION: No acute intracranial abnormality. Findings were discussed with Dr. Corona at 5:24 pm on 01/31/2019. D/ / Mo Du MD / Mo Du MD Interpreting Provider: Mo Du MD Head CTA 01/31/19 17:06 IMPRESSION: 1. No acute arterial abnormality in the head or neck. 2. 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 3. Moderate stenosis of the proximal right subclavian artery. D/ / Jaquan Fraire / Jaquan Fraire Interpreting Provider: Jaquan Fraire Chest X-Ray 01/31/19 17:07 IMPRESSION: No evidence of acute cardiopulmonary disease. D/ / Juan Tate MD / Juan Tate MD Interpreting Provider: Juan Tate MD Neck CTA 01/31/19 17:07 IMPRESSION: 1. No acute arterial abnormality in the head or neck. 2. 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 3. Moderate stenosis of the proximal right subclavian artery. D/ / Jaquan Fraire / Jaquan Fraire Interpreting Provider: Jaquan Fraire - Assessment and Plan (1) Stroke-like symptoms Status: Acute Assessment and plan: Patient with past medical history significant for multiple TIAs presenting with right-sided facial droop associated with change in sensation of the right side of the face and extremities concerning for TIA/CVA. Laboratory workup unremarkable. Imaging of the head with CTA of head and neck shows no acute intracranial abnormality with moderate stenosis of the right posterior cerebral artery and moderate stenosis of the proximal right subclavian artery. On my assessment patient continues to have a visible right-sided facial drooping with reported hyperesthesia of the right side of the face and upper and lower extremity. She is also reporting photophobia and right-sided headache. Differential may include complex migraine. Patient received aspirin. -Continue neuro checks -Telemetry -Hold antihypertensives to allow for permissive hypertension -We will obtain echocardiogram in the morning -Patient will go for MRI tonight -Neurology consult (2) Facial droop Status: Acute Assessment and plan: See above (3) UTI (urinary tract infection) Status: Acute Assessment and plan: Recent admission for UTI with sepsis with urine cultures positive for Escherichia coli that was pansensitive. We will continue patient on discharged antibiotics to complete course. Qualifiers: Urinary tract infection type: acute cystitis Hematuria presence: with hematuria Qualified Code(s): N30.01 - Acute cystitis with hematuria (4) Diabetes Status: Acute Assessment and plan: Blood glucose checks. Sliding scale insulin plus basal. 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
[2019-01-31] MEDS ORDERED: *HR* Dextrose 50 % in Water (Syg) 50 ML SYRINGE IVP PRN (20:20)
[2019-01-31] MEDS ORDERED: Dextrose Gel 15 GM/37.5 ML TUBE PO PRN ×2 (20:20)
[2019-01-31] MEDS ORDERED: D5% in Water 1,000 ML IVC PRN (20:20)
[2019-01-31] MEDS ORDERED: Insulin DETEMIR 100 UNIT/ML X5UNITS SQ SCH (21:00)
[2019-01-31] MEDS: Insulin LISPRO 300 UNITS/3 ML VIAL SQ SCH (22:28)
[2019-01-31] MEDS: Cefdinir 300 MG CAPSULE PO SCH (22:34)
[2019-01-31] MEDS: *HR* Heparin 5,000 UNIT/ML VIAL SQ SCH (22:35)
[2019-01-31] MEDS ORDERED: Melatonin 3 MG TABLET PO SCH (22:45)
[2019-01-31] MEDS: traMADol 50 MG TABLET PO PRN (22:54)
[2019-02-01 04:58] LABS: INR 1.2; Prothrombin Time 13.5 Seconds (9.4-12.1)
[2019-02-01] MEDS: *HR* Heparin 5,000 UNIT/ML VIAL SQ SCH ×2 (05:03→14:08)
[2019-02-01 05:16] LABS: Alanine Aminotransferase 29 Units/L (7-52); Albumin 3.5 g/dL (3.5-5.7); Albumin/Globulin Ratio 1.4 (1.1-2.2); Alkaline Phosphatase 52 Units/L (34-104); Aspartate Amino Transferase 22 Units/L (13-39); BUN/Creatinine Ratio 25 (6-26); Bilirubin,Total 0.5 mg/dL (0.3-1.0); Blood Urea Nitrogen 19 mg/dL (8-23); Calcium 8.7 mg/dL (8.6-10.3); Carbon Dioxide 26 mEq/L (23-29); Chloride 104 mEq/L (98-107); Chol/HDL Ratio 5.1 (0-4.9); Cholesterol 91 mg/dL (< 200); Globulin 2.5 g/dL (2.4-3.5); Glucose 160 mg/dL (70-105); HDL Cholesterol 18 mg/dL (40-59); LDL Cholesterol,Calculated 33 mg/dL (0-99); Osmolality,Calculated 290 (280-300); Potassium 4.3 mEq/L (3.5-5.1); Sodium 137 mEq/L (136-145); Triglycerides 198 mg/dL (< 150); Troponin I < 0.03 ng/mL (< 0.04); eGFR For African Americans > 60 (> 60); eGFR For Non-African Americans > 60 (> 60)
[2019-02-01] MEDS: 0.9 % Sodium Chloride 1,000 ML IVC SCH ×2 (06:01→14:07)
[2019-02-01] MEDS: traMADol 50 MG TABLET PO PRN (06:43)
[2019-02-01 07:04] LABS: Estimated Average Glucose 148 mg/dl
[2019-02-01] MEDS: Insulin LISPRO 300 UNITS/3 ML VIAL SQ SCH ×2 (08:15→12:07)
[2019-02-01] MEDS ORDERED: Aspirin Enteric Coated 81 MG Tablet PO SCH (09:00)
[2019-02-01] MEDS ORDERED: Metoprolol XL (24 HR) Succ 50 MG TAB.ER.24H PO SCH (09:00)
[2019-02-01] MEDS: Cefdinir 300 MG CAPSULE PO SCH (09:36)
--- NOTE | 2019-02-01 09:58 | Internal Med Progress Note ---
Hospitalist Progress Note - Encounter Date of Encounter: 02/01/19 Time of Encounter: 09:58 - Exam Vitals: Temp Pulse Resp BP Pulse Ox 97.8 F 65 17 120/71 94 02/01/19 07:33 02/01/19 07:33 02/01/19 07:33 02/01/19 07:33 02/01/19 07:33 - Assessment and Plan (1) Diabetes Current Visit: No Status: Acute (2) UTI (urinary tract infection) Current Visit: No Status: Acute (3) DVT prophylaxis Current Visit: No Status: Acute (4) Sleep apnea Current Visit: No Status: Acute (5) Facial droop Current Visit: Yes Status: Acute (6) Stroke-like symptoms Current Visit: Yes Status: Acute - Time Spent with Patient Total time spent is greater than 50% in coordination of care (as documented) at patient's floor/unit and/or counseling patient: Internal Medicine: Result - Labs CBC & Chem 7: 01/31/19 17:05 02/01/19 04:10 Labs: Short CBC 01/31/19 Range/Units 17:05 WBC 7.7 (4.3-11.1) K/mcL Hgb 13.8 (11.5-15.4) g/dL Hct 42.1 (35.3-44.9) % Plt Count 184 (140-400) K/mcL BMP 01/31/19 02/01/19 17:05 04:10 Sodium 136 137 Potassium 4.8 4.3 Chloride 101 104 Carbon Dioxide 29 26 BUN 25 H 19 Creatinine 0.87 0.75 Glucose 147 H 160 H Calcium 9.5 8.7 Cardiac Enzymes 01/31/19 02/01/19 Range/Units 17:05 04:10 Troponin I < 0.03 < 0.03 (< 0.04) ng/mL Liver Function 02/01/19 Range/Units 04:10 Total Bilirubin 0.5 (0.3-1.0) mg/dL AST 22 (13-39) Units/L ALT 29 (7-52) Units/L Alkaline Phosphatase 52 (34-104) Units/L Albumin 3.5 (3.5-5.7) g/dL Urine 01/31/19 Range/Units 17:59 Urine Color Yellow (Yellow) Urine Clarity Cloudy A (Clear) Urine pH 6.0 (5.0-8.0) pH Units Ur Specific [place] 1.030 H (1.010-1.025) Urine Protein Trace (Neg-Trace) mg/dL Urine Glucose (UA) Normal (Normal) mg/dL - ABG Interpretation ABG results: PT/INR, D-dimer PT 13.5 Seconds (9.4-12.1) H 02/01/19 04:10 - Impressions Impressions Head CT 01/31/19 17:06 IMPRESSION: No acute intracranial abnormality. Findings were discussed with Dr. Corona at 5:24 pm on 01/31/2019. D/ / Mo Du MD / Mo Du MD Interpreting Provider: Mo Du MD Head CTA 01/31/19 17:06 IMPRESSION: 1. No acute arterial abnormality in the head or neck. 2. 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 3. Moderate stenosis of the proximal right subclavian artery. D/ / Jaquan Fraire / Jaquan Fraire Interpreting Provider: Jaquan Fraire Chest X-Ray 01/31/19 17:07 IMPRESSION: No evidence of acute cardiopulmonary disease. D/ / Juan Tate MD / Juan Tate MD Interpreting Provider: Juan Tate MD Neck CTA 01/31/19 17:07 IMPRESSION: 1. No acute arterial abnormality in the head or neck. 2. 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 3. Moderate stenosis of the proximal right subclavian artery. D/ / Jaquan Fraire / Jaquan Fraire Interpreting Provider: Jaquan Fraire Brain MRI 01/31/19 19:25 IMPRESSION: 1. No acute intracranial abnormality. 2. Mild chronic white matter microvascular ischemic changes. 3. Remote lacunar infarcts in the bilateral basal ganglia. D/ / Jaquan Fraire / Jaquan Fraire Interpreting Provider: Jaquan Fraire Consult Discharge Plan - Plan Referrals: Jovana Madsen [Primary Care Provider] - (1) Diabetes Qualifiers: Diabetes mellitus type: type 2 Diabetes mellitus shelter insulin use: with shelter use Diabetes mellitus complication status: with hyperglycemia Qualified Code(s): E11.65 - Type 2 diabetes mellitus with hyperglycemia; Z79.4 - detention (current) use of insulin (2) UTI (urinary tract infection) Qualifiers: Urinary tract infection type: acute cystitis Hematuria presence: with hematuria Qualified Code(s): N30.01 - Acute cystitis with hematuria (4) Sleep apnea Qualifiers: Sleep apnea type: unspecified type Qualified Code(s): G47.30 - Sleep apnea, unspecified
--- NOTE | 2019-02-01 12:57 | Neurology - Consult Note ---
<Moy Kinney J - Last Filed: 02/01/19 13:05> Date of Encounter: 02/01/19 Time of Encounter: 12:46 Assessment and Plan (1) Stroke-like symptoms Current Visit: Yes Status: Acute Presented with headaches, right-sided weakness, right facial droop and right- sided paresthesias Right-sided weakness and headaches have resolved. He continues to have sensation to the right face with right facial droop It is unclear from baseline she does have a history of bilateral basal ganglia infarcts in the right facial droop may be chronic Nonetheless a stroke workup was implemented with an MRI of the brain finding no acute infarct or acute intracranial abnormality A CT of the head and neck was completed showing no acute arterial abnormality in the head or neck finding only moderate stenosis of the right posterior cerebral artery and moderate stenosis of the proximal right subclavian artery An echocardiogram has been completed and is pending Currently she is taking a total platelet therapy with aspirin and Plavix as well as statin therapy. Recommendations are to continue these Further recommendations pending echocardiogram Most likely she has had a recurrent TIA. She has been instructed to follow with her primary neurologist in [facility]. If the echocardiogram is normal she may discharge the discretion of the primary team. History of Present Illness Chief complaint: TIA HPI: Ms. Lozada is a 68 year old female with a PMH of CAD, CVA, DM, HTN and TIAs 5 as reported per the patient. She presents to [facility] for evaluation of strokelike symptoms. She reports that she was at her PCPs office yesterday evening and while she is being examined she developed cramping of the right index finger with weakness and paresthesias of the right upper and lower extremity as well as right-sided facial numbness and right facial droop. She states that she was at her PCPs office for evaluation of a headache. She reports that she has been having intermittent headaches for approximately 2-weeks with tunnel vision, photosensitivity, and aura. She denies any migraine history. Reports occasional headaches however, over the last two weeks her headaches are more severe than normal. She does have a prior history of remote bilateral basal ganglia infarct. She was found to have a right facial droop by the admitting physician and subsequently was admitted for stroke workup. Of note she has a history of cervical degenerative disc disease. She follows with a primary neuro logist in [facility] for intermittent episodes of right-sided weakness and parasthesias. Since admission she reports that the right arm weakness has resolved. She denies any paresthesias. She does continue to have mild right facial droop and right eye ptosis however this is unclear as to whether or not this is residual from prior bilateral basal ganglia infarcts. She has had an MRI of the brain is negative for an acute infarct or acute intracranial abnormalities finding only mild chronic white matter microvascular ischemic changes. Past Med Surg Social Fam HX - Past Medical History Medical history: coronary artery disease, CVA, diabetes, hypertension Additional medical history: TIA x 5 Psychiatric history: anxiety, depression - Past Surgical History Surgical History: other (unknown; pt unable to provide history) Additional surgical history: cardiac stent - Social History Smoking Status: Former smoker Smokeless Tobacco Status: No Alcohol use: none Drug use: none - Family History Mother Hx Family Endocrine Disorder: Yes Father Family Member Ethnicity: Non- Living Status: Hx Family Cancer: Yes (Stomach) Medications and Allergies Clopidogrel [Plavix] 75 mg PO DAILY 10/28/15 [History] Tizanidine HCl 2 mg PO Q8HR PRN 10/28/15 [History] metFORMIN [Glucophage] 500 mg PO BIDWM 10/28/15 [History] Amitriptyline [Elavil] 25 mg PO HS 01/27/19 [History] Citalopram [CeleXA] 30 mg PO DAILY 01/27/19 [History] Famotidine [Pepcid] 40 mg PO DAILY 01/27/19 [History] Insulin NPH Hum/Reg Insulin Hm [Novolin 70-30 100 Unit/ml Vial] 35 unit SQ QPM 01/27/19 [History] Insulin NPH Hum/Reg Insulin Hm [Novolin 70-30 100 Unit/ml Vial] 40 unit SQ QAM 01/27/19 [History] Isosorbide MONOnitrate (24 HR) [Imdur] 60 mg PO DAILY 01/27/19 [History] Melatonin [Melatin] 6 mg PO HS 01/27/19 [History] Metoprolol Succinate [Toprol Xl] 100 mg PO DAILY 01/27/19 [History] Pramipexole [Mirapex] 0.125 mg PO HS 01/27/19 [History] Simvastatin [Zocor] 40 mg PO HS 01/27/19 [History] amLODIPine [Norvasc] 10 mg PO DAILY 01/27/19 [History] hydrOXYzine HCl [Hydroxyzine HCl] 25 mg PO TID PRN 01/27/19 [History] Tramadol HCl [Ultram] 50 mg PO TID PRN 7 Days #20 tab 01/29/19 [Rx] Aspirin [Lo-Dose Aspirin EC] 81 mg PO DAILY 01/31/19 [History] Allergy/AdvReac Type Severity Reaction Status Date / Time furosemide [From Lasix] Allergy Anaphylaxis Verified 01/26/19 21:49 acetaminophen [From Tylenol] AdvReac Hallucinati Verified 01/26/19 21:49 ng All Systems: The remainder of the systems were reviewed and are negative Review of Systems: REVIEW OF SYSTEMS NEUROLOGIC: Negative for any blurry vision, blind spots, double vision, dysphagia, dysarthria, hemiparesis, vertigo, ataxia, seizures, paralysis, Positive-right arm weakness, right facial droop with right ptosis, headaches, tunnel vision, aura, diminished sensation to the right face HEENT: Negative for any head trauma, neck trauma, neck stiffness Positive for photophobia CARDIAC: Negative for any chest pain, dyspnea, peripheral edema or palpitations MUSCULOSKELETAL: Positive - loss of strength Physical Examination - Vital Signs Vital Signs: Initial Vital Signs Temp Pulse Resp BP Pulse Ox 98.0 F 59 16 146/66 97 01/31/19 16:57 01/31/19 16:57 01/31/19 16:57 01/31/19 16:57 01/31/19 16:57 - Exam Exam: Examination: General Examination: *CONSTITUTIONAL: Alert and oriented x3, no acute distress *GENERAL APPEARANCE OF PATIENT appears healthy and well groomed *EYES: pupils equal, round, reactive to light and accommodation, conjunctiva clear *CARDIOVASCULAR no peripheral edema, distal temperature normal, dorsalis pedis pulses normal. See vital signs Musculoskeletal: *GAIT AND STATION normal, with normal Romberg testing, no abnormalities such as broad base gait or spasticity *ASSESSMENT OF MUSCLE STRENGTH IN THE UPPER AND LOWER EXTREMITIES bilateral deltoid, bicep, tricep, conveyor belt installer strength, hip flexors ,anterior tibialis, dorsoflexion of the foot 5/5 *MUSCLE TONE IN THE UPPER AND LOWER EXTREMITIES normal. No abnormal movements, fasciculations or atrophy identified. Neurological: *ORIENTATION to person, situation, time and place *RECURRENT AND REMOTE MEMORY intact *ATTENTION AND CONCENTRATION are normal *LANGUAGE FUNCTION no significant aphasia or dysarthia was noted. *FUND OF KNOWLEDGE aware of current events, past history, vocabulary *MENTAL attention span and concentration normal. *CN II optic fundi were normal, no papilledema noted. *CN III,IV, PERRLA extraocular eye movements were full, no nystagmus and mild right eye ptosis *CN V shows normal sensation and jaw opens symmetrically. *CN VII shows normal facial movement which is symmetrical upper and lower bilaterally. However at rest she does have a mild right facial droop. This may be chronic with prior history of basal ganglia infarcts bilaterally *CN VIII reporting some decreased hearing in the right ear *CN IX,,X palate elevated symmetrically *CN XI normal strength in the sternocleidomastoid muscles, symmetrical shoulder shrugging. *CN XII tongue protruded in the midline, with normal strength and movement. *SENSORY EXAMINATION hemisensory deficits reporting diminished sensation to the right face *REFLEXES: deep tendon reflexes were absent diffusely; most likely due to chronic diabetes, no pathological reflexes were noted. *CEREBELLAR TESTING normal finger to nose, heel/knee/tay *PAIN LEVEL 0/10 Results - Laboratory Findings CBC and BMP: 01/31/19 17:05 02/01/19 04:10 Abnormal lab findings: Abnormal lab results PT 13.5 Seconds (9.4-12.1) H 02/01/19 04:10 BUN 25 mg/dL (8-23) H 01/31/19 17:05 29 (6-26) H 01/31/19 17:05 Glucose 160 mg/dL (70-105) H 02/01/19 04:10 POC Glucose 110 mg/dL (70-99) H 01/31/19 22:27 6.8 % (-5.6) H 02/01/19 04:10 6.0 g/dL (6.4-8.9) L 02/01/19 04:10 Triglycerides 198 mg/dL (< 150) H 02/01/19 04:10 VLDL Cholesterol, Calc 40 mg/dL (< 31) H 02/01/19 04:10 18 mg/dL (40-59) L 02/01/19 04:10 5.1 (0-4.9) H 02/01/19 04:10 Cloudy (Clear) A 01/31/19 17:59 Ur Specific [place]ona 1.030 (1.010-1.025) H 01/31/19 17:59 Ur Leukocyte Esterase Small (Negative) H 01/31/19 17:59 15-30 per hpf (0-3) H 01/31/19 17:59 Ur Squamous Epith Cells Many per lpf (None-Few) H 01/31/19 17:59 Ur Culture Indicated? YES (NO) A 01/31/19 17:59 - Diagnostic Findings Additional findings: MR/MR head/brain wo con IMPRESSION: 1. No acute intracranial abnormality. 2. Mild chronic white matter microvascular ischemic changes. 3. Remote lacunar infarcts in the bilateral basal ganglia. CT/CT angio head IMPRESSION: 1. No acute arterial abnormality in the head or neck. 2. 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 3. Moderate stenosis of the proximal right subclavian artery. Consult Discharge Plan - Plan Referrals: Jovana Madsen [Primary Care Provider] - 02/06/19 10:20 am Lito Lock [Non-Partnered Physician] - 02/06/19 11:15 am <Abhijit Connolly - Last Filed: 02/01/19 14:54> Date of Encounter: 02/01/19 Assessment and Plan (1) Stroke-like symptoms Current Visit: Yes Status: Acute History of Present Illness HPI: Ms. Lozada is a 68 year old female All Systems: The remainder of the systems were reviewed and are negative Physical Examination - Vital Signs Vital Signs: Initial Vital Signs Temp Pulse Resp BP Pulse Ox 98.0 F 59 16 146/66 97 01/31/19 16:57 01/31/19 16:57 01/31/19 16:57 01/31/19 16:57 01/31/19 16:57 Results - Laboratory Findings CBC and BMP: 01/31/19 17:05 02/01/19 04:10 Abnormal lab findings: Abnormal lab results PT 13.5 Seconds (9.4-12.1) H 02/01/19 04:10 BUN 25 mg/dL (8-23) H 01/31/19 17:05 29 (6-26) H 01/31/19 17:05 Glucose 160 mg/dL (70-105) H 02/01/19 04:10 POC Glucose 110 mg/dL (70-99) H 01/31/19 22:27 6.8 % (-5.6) H 02/01/19 04:10 6.0 g/dL (6.4-8.9) L 02/01/19 04:10 Triglycerides 198 mg/dL (< 150) H 02/01/19 04:10 VLDL Cholesterol, Calc 40 mg/dL (< 31) H 02/01/19 04:10 18 mg/dL (40-59) L 02/01/19 04:10 5.1 (0-4.9) H 02/01/19 04:10 Cloudy (Clear) A 01/31/19 17:59 Ur Specific [place] 1.030 (1.010-1.025) H 01/31/19 17:59 Ur Leukocyte Esterase Small (Negative) H 01/31/19 17:59 15-30 per hpf (0-3) H 01/31/19 17:59 Ur Squamous Epith Cells Many per lpf (None-Few) H 01/31/19 17:59 Ur Culture Indicated? YES (NO) A 01/31/19 17:59
--- NOTE | 2019-02-01 13:42 | Discharge Summary ---
- NOTES TO OUTPATIENT PROVIDER Notes to Outpatient Provider: Presented with strokelike symptoms was seen by neurology-CT of head and MRI with nothing acute suspect recurrent TIA continue with aspirin and Plavix and statin follow-up with primary neurologists Orders not resulted at time of discharge: Pending orders 01/31/19 17:59 Culture,Urine [RM] Stat Date of Encounter: 02/01/19 Time of Encounter: 13:42 - Discharge Diagnosis (1) Diabetes Priority: Secondary Status: Acute Qualifiers: Diabetes mellitus type: type 2 Diabetes mellitus continuous churn buttermaker insulin use: with continuous churn buttermaker use Diabetes mellitus complication status: without complication Qualified Code(s): E11.9 - Type 2 diabetes mellitus without complications; 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 Lozada is a 68 year old female past medical history of CAD CVA diabetes hypertension TIA 5 per patient report. Presented to [facility] ED with strokelike symptoms. She was at her PCPs office yesterday during examination stable cramping in her right index finger weakness and paresthesia of right upper and lower extremity as well as right sided facial numbness and facial droop. Prior history of intermittent headaches for approximately 2 weeks with television photo phobia and were a. Denies any past migraine history. Remote history of bilateral basal ganglia infarct. Stroke workup was completed CT and MRI brain negative for anything acute. Cardiac echo with no PFO and preserved EF Neurology was consulted suspect recurrent TIA recommend continuation of aspirin and Plavix as well as statin and follow-up with primary neurology. Advised patient follow-up with primary care provider as well as neurology she did verbalize understanding Currently patient is at neurological baseline she is hemodynamically stable at this time is ready for discharge. - Time Spent with Patient Total time spent providing and/or coordinating discharge services: - Discharge Medications Prescriptions: Continued metFORMIN [Glucophage] 500 mg PO BIDWM Clopidogrel [Plavix] 75 mg PO DAILY Tizanidine HCl 2 mg PO Q8HR PRN PRN Reason: Muscle Spasm Amitriptyline [Elavil] 25 mg PO HS amLODIPine [Norvasc] 10 mg PO DAILY Citalopram [CeleXA] 30 mg PO DAILY Famotidine [Pepcid] 40 mg PO DAILY hydrOXYzine HCl [Hydroxyzine HCl] 25 mg PO TID PRN PRN Reason: Anxiety Insulin NPH Hum/Reg Insulin Hm [Novolin 70-30 100 Unit/ml Vial] 40 unit SQ QAM Insulin NPH Hum/Reg Insulin Hm [Novolin 70-30 100 Unit/ml Vial] 35 unit SQ QPM Isosorbide MONOnitrate (24 HR) [Imdur] 60 mg PO DAILY Melatonin [Melatin] 6 mg PO HS Metoprolol Succinate [Toprol Xl] 100 mg PO DAILY Simvastatin [Zocor] 40 mg PO HS Pramipexole [Mirapex] 0.125 mg PO HS Aspirin [Lo-Dose Aspirin EC] 81 mg PO DAILY Discontinued Cefdinir [Omnicef] 300 mg PO BID #10 capsule No Action Tramadol HCl [Ultram] 50 mg PO TID PRN 7 Days #20 tab PRN Reason: Moderate Pain Home Medications: Clopidogrel [Plavix] 75 mg PO DAILY 10/28/15 [History] Tizanidine HCl 2 mg PO Q8HR PRN 10/28/15 [History] metFORMIN [Glucophage] 500 mg PO BIDWM 10/28/15 [History] Amitriptyline [Elavil] 25 mg PO HS 01/27/19 [History] Citalopram [CeleXA] 30 mg PO DAILY 01/27/19 [History] Famotidine [Pepcid] 40 mg PO DAILY 01/27/19 [History] Insulin NPH Hum/Reg Insulin Hm [Novolin 70-30 100 Unit/ml Vial] 35 unit SQ QPM 01/27/19 [History] Insulin NPH Hum/Reg Insulin Hm [Novolin 70-30 100 Unit/ml Vial] 40 unit SQ QAM 01/27/19 [History] Isosorbide MONOnitrate (24 HR) [Imdur] 60 mg PO DAILY 01/27/19 [History] Melatonin [Melatin] 6 mg PO HS 01/27/19 [History] Metoprolol Succinate [Toprol Xl] 100 mg PO DAILY 01/27/19 [History] Pramipexole [Mirapex] 0.125 mg PO HS 01/27/19 [History] Simvastatin [Zocor] 40 mg PO HS 01/27/19 [History] amLODIPine [Norvasc] 10 mg PO DAILY 01/27/19 [History] hydrOXYzine HCl [Hydroxyzine HCl] 25 mg PO TID PRN 01/27/19 [History] Tramadol HCl [Ultram] 50 mg PO TID PRN 7 Days #20 tab 01/29/19 [Rx] Aspirin [Lo-Dose Aspirin EC] 81 mg PO DAILY 01/31/19 [History] Allergies/Adverse Reactions: Allergy/AdvReac Type Severity Reaction Status Date / Time furosemide [From Lasix] Allergy Anaphylaxis Verified 01/26/19 21:49 acetaminophen [From Tylenol] AdvReac Hallucinati Verified 01/26/19 21:49 ng Date of admission: 01/31/19 19:34 Primary care physician: Jovana Madsen Consults: 01/31/19 19:25 Consult to Neurology [CONS] Routine Consulting Provider: Neurology [facility] Reason for Consult: TIA/CVA workup Call Completed: No Consult to Physical Therapy [CONS] Routine Comment: Evaluate, develop and implement POC Reason for Consult: CVA/TIA workup Does patient have active BEDREST order?: No Is patient medically & hemodynamically stable?: Yes Discharging clinician: Sheeba Wright Anticipated date of discharge: 02/01/19 - Constitutional Vitals: Temp Pulse Resp BP Pulse Ox 98.7 F 65 18 131/76 94 02/01/19 10:23 02/01/19 10:23 02/01/19 10:23 02/01/19 10:23 02/01/19 10:23 Exam: General: Alert and oriented 3 lying in bed in no acute distress Skin:Normal color, no rash, no lesions. HEENT:EOM, pupils equal, round and reactive. Cardiovascular:Normal S1 & S2, no rubs, murmurs or gallops. No JVD. Pulse regular. Lungs:Normal breath sounds, no wheezes or crackles. Abdomen:Soft, non-tender, no rigidity. Extremities:No deformity, no edema or tenderness, no joint swelling or clubbing. Neurological:Normal cognition; cranial nerves II through XII intact. . Hyperesthesia on the right side of the face and lower extremity. No pronator drift. No dysmetria. 5 out of 5 bilateral upper and lower muscle strength. Pulses:Carotid and radial pulses normal +2. Rest of the physical exam is non contributory - Patient Status Disposition: Home, Self-Care Condition: Fair Functional capacity at discharge: independent ambulation Overall status at discharge: patient is back to baseline - Discharge Instructions Follow Up With: Jovana Madsen [Primary Care Provider] - 02/06/19 10:20 am Lito Lock [Non-Partnered Physician] - 02/06/19 11:15 am - Diet and Activity Activity: increase activity as tolerated Diet: advance to your usual diet
[2019-02-01 14:45] VITALS: BP 118/70
--- NOTE | 2019-02-01 18:40 | Electrocardiograph Report ---
[address] [address] Test Date: 2019-01-31 Pat Name: Leni Lozada Department: EXAM14 Room: 3B45 Gender: F [employer] Prom[employer] Assistant: : [id number] Requested By: Trace Peralta Order Number: [id number] Reading MD: Dread Mcgraw Measurements Intervals [place] Rate: 62 P: 87 UT: 268 QRS: -36 QRSD: 90 T: 58 QT: 450 QTc: 457 Interpretive Statements Sinus rhythm with 1st degree AVB Probable left ventricular hypertrophy Poor R-wave progression Electronically Signed On 02-01-2019 18:38:59 EDT by Dread Mcgraw
== END 2019-02-01 17:00 | disposition home or self-care (01) ==
LOC: 3BNU 16:56 → EMEROOARM 16:56 → 3BNU 20:11
PROVIDERS: ADMIT Internal Medicine; ATTEND Internal Medicine

== ENCOUNTER 2021-05-16 12:21 | Observation (INO) ==
[2021-05-16 13:44] LABS: Basophils % 0.2 %; Eosinophils # 0.1 K/mcL (0.0-0.6); Eosinophils % 1.5 %; Hematocrit 37.4 % (35.3-44.9); Lymphocytes # 1.3 K/mcL (0.6-4.6); Lymphocytes % 28.6 %; Mean Corpuscular HGB Conc 32.1 g/dL (31.6-35.5); Mean Corpuscular Hemoglobin 29.9 pg (28.0-33.3); Mean Corpuscular Volume 93.3 fL (83.0-100.0); Mean Platelet Volume 10.4 fL (9.4-12.4); Monocytes # 0.4 K/mcL (0.0-1.3); Monocytes % 9.2 %; Neutrophils # 2.8 K/mcL (1.6-8.9); Platelet Count 156 K/mcL (140-400); Red Blood Count 4.01 M/mcL (3.82-4.97); Red Cell Distribution Width 14.6 % (11.5-14.5); Segmented Neutrophils % 60.5 %; White Blood Count 4.7 K/mcL (4.3-11.1)
[2021-05-16 13:58] LABS: BUN/Creatinine Ratio 25 (6-26); Blood Urea Nitrogen 21 mg/dL (8-23); Calcium 9.1 mg/dL (8.6-10.3); Carbon Dioxide 28 mEq/L (23-29); Chloride 105 mEq/L (98-107); Glucose 107 mg/dL (70-105); Osmolality,Calculated 291 (280-300); Potassium 4.7 mEq/L (3.5-5.1); Sodium 139 mEq/L (136-145); eGFR For African Americans > 60 (> 60); eGFR For Non-African Americans > 60 (> 60)
[2021-05-16 13:59] LABS: Troponin I < 0.03 ng/mL (< 0.04)
[2021-05-16] MEDS ORDERED: Naloxone 0.4 MG/ML INJ IVP PRN (18:13)
[2021-05-16] MEDS ORDERED: *HR* Dextrose 50 % in Water (Syg) 50 ML SYRINGE IVP PRN (18:16)
[2021-05-16] MEDS ORDERED: Dextrose Gel 15 GM/37.5 ML TUBE PO PRN ×2 (18:16)
[2021-05-16] MEDS ORDERED: Perflutren Lipid Microsphere 1.3 ML in 0.9 % Sodium Chloride 8.7 ML IVP PRN (18:16)
[2021-05-16] MEDS ORDERED: D5% in Water 1,000 ML IVC PRN (18:16)
[2021-05-16] MEDS ORDERED: *HR* Labetalol 20 MG/4 ML SYRINGE IVP PRN (18:24)
[2021-05-16 18:26] LABS: Amorphous Sediment,Urine Few per hpf (None-Few); Bacteria,Urine Few per hpf (None-Few); Bilirubin,Urine Negative (Negative); Blood,Urine Negative (Negative); Clarity,Urine Clear (Clear); Color,Urine Light-Yellow (Yellow); Glucose,Urine (UA) Normal (Normal); Ketones,Urine Negative (Negative); Leukocyte Esterase,Urine Large (Negative); Mucus,Urine Few per lpf (None-Few); Nitrite,Urine Positive (Negative); Protein,Urine Negative (Neg-Trace); RBC,Urine 0-3 per hpf (0-3); Specific Gravity,Urine 1.013 (1.010-1.025); Squamous Epithelial Cell,Urine Few per hpf (None-Few); Urobilinogen,Urine Normal (Normal); WBC,Urine 30-50 per hpf (0-3)
[2021-05-16] MEDS ORDERED: cefTRIAXone 1,000 MG in 0.9 % Sodium Chloride Mini Bag 100 ML IVPB ONE (18:30)
[2021-05-16] MEDS: Doxycycline 100 MG CAPSULE PO SCH (20:08)
[2021-05-16] MEDS: Melatonin 3 MG TABLET PO SCH (20:54)
[2021-05-16] MEDS: Gabapentin 300 MG CAPSULE PO SCH (20:58)
[2021-05-16 21:33] LABS: VBG HCO3 28 mEq/L (21-27); VBG PCO2 48 mmHg (41-51); VBG PH 7.37 pH Units (7.32-7.42); VBG PO2 31 mmHg (25-50)
[2021-05-16 21:44] LABS: Ethanol < 10 mg/dL (Less than 10)
[2021-05-16 21:46] LABS: Troponin I < 0.03 ng/mL (< 0.04)
[2021-05-16] MEDS ORDERED: Ibuprofen 400 MG TABLET PO PRN (21:56)
[2021-05-16 22:00] LABS: Thyroid Stimulating Hormone 4.471 mcIU/mL (0.340-5.600)
[2021-05-17 01:24] LABS: Basophils % 0.2 %; Eosinophils # 0.1 K/mcL (0.0-0.6); Eosinophils % 1.5 %; Hematocrit 38.6 % (35.3-44.9); Hemoglobin 12.4 g/dL (11.5-15.4); Immature Granulocytes % 0.2 % (0-4); Immature Platelets 2.3 % (1.1-6.1); Lymphocytes # 1.4 K/mcL (0.6-4.6); Lymphocytes % 26.1 %; Mean Corpuscular HGB Conc 32.1 g/dL (31.6-35.5); Mean Corpuscular Hemoglobin 29.2 pg (28.0-33.3); Mean Platelet Volume 10.3 fL (9.4-12.4); Monocytes # 0.4 K/mcL (0.0-1.3); Monocytes % 7.9 %; Neutrophils # 3.4 K/mcL (1.6-8.9); Platelet Count 136 K/mcL (140-400); Red Blood Count 4.24 M/mcL (3.82-4.97); Red Cell Distribution Width 14.6 % (11.5-14.5); Segmented Neutrophils % 64.1 %; White Blood Count 5.3 K/mcL (4.3-11.1)
[2021-05-17 01:40] LABS: BUN/Creatinine Ratio 21 (6-26); Blood Urea Nitrogen 16 mg/dL (8-23); Calcium 8.9 mg/dL (8.6-10.3); Carbon Dioxide 25 mEq/L (23-29); Chloride 106 mEq/L (98-107); Glucose 151 mg/dL (70-105); Osmolality,Calculated 294 (280-300); Potassium 4.1 mEq/L (3.5-5.1); Sodium 140 mEq/L (136-145); eGFR For African Americans > 60 (> 60); eGFR For Non-African Americans > 60 (> 60)
[2021-05-17 01:42] LABS: Chol/HDL Ratio 5.8 (0-4.9)
[2021-05-17 03:32] LABS: Estimated Average Glucose 126 mg/dl
[2021-05-17] MEDS: Doxycycline 100 MG CAPSULE PO SCH ×2 (07:56→21:58)
[2021-05-17] MEDS: Aspirin Enteric Coated 81 MG Tablet PO SCH (07:56)
[2021-05-17] MEDS: Gabapentin 300 MG CAPSULE PO SCH ×2 (07:56→22:00)
[2021-05-17] MEDS: Insulin LISPRO 300 UNITS/3 ML VIAL SUBQ SCH ×3 (08:34→19:45)
[2021-05-17] MEDS ORDERED: tiZANidine 4 MG TABLET PO PRN (15:22)
[2021-05-17] MEDS ORDERED: hydrOXYzine pamoate 25 MG CAPSULE PO PRN (15:22)
[2021-05-17] MEDS ORDERED: Insulin NPH/REG 70/30 100 UNIT/ML (x5UNIT) SUBQ SCH (18:00)
[2021-05-17] MEDS: Isosorbide MONOnitrate (24 HR) 30 MG TAB.ER.24H PO SCH (19:15)
[2021-05-17] MEDS: Metoprolol XL (24 HR) Succ 50 MG TAB.ER.24H PO SCH (19:15)
[2021-05-17] MEDS: cefTRIAXone 1,000 MG in 0.9 % Sodium Chloride Mini Bag 100 ML IVPB SCH (19:44)
[2021-05-17] MEDS: Melatonin 3 MG TABLET PO SCH (21:58)
[2021-05-17] MEDS: levETIRAcetam 250 MG TABLET PO SCH (21:59)
[2021-05-17] MEDS: Magnesium Oxide 400 MG TABLET PO SCH (22:00)
[2021-05-18] MEDS ORDERED: Ondansetron 4 MG/2 ML VIAL IVP ONE (05:15)
[2021-05-18] MEDS ORDERED: Insulin NPH/REG 70/30 100 UNIT/ML (x5UNIT) SUBQ SCH ×2 (09:00→18:00)
[2021-05-18] MEDS: Doxycycline 100 MG CAPSULE PO SCH ×2 (09:02→19:40)
[2021-05-18] MEDS: Insulin LISPRO 300 UNITS/3 ML VIAL SUBQ SCH ×3 (09:02→18:41)
[2021-05-18] MEDS: Aspirin Enteric Coated 81 MG Tablet PO SCH (09:02)
[2021-05-18] MEDS: Famotidine 20 MG TABLET PO SCH (09:03)
[2021-05-18] MEDS: levETIRAcetam 250 MG TABLET PO SCH ×2 (09:03→19:40)
[2021-05-18] MEDS: Magnesium Oxide 400 MG TABLET PO SCH ×2 (09:03→19:40)
[2021-05-18] MEDS: Metoprolol XL (24 HR) Succ 50 MG TAB.ER.24H PO SCH (09:03)
[2021-05-18] MEDS: Isosorbide MONOnitrate (24 HR) 30 MG TAB.ER.24H PO SCH (09:03)
[2021-05-18] MEDS: Gabapentin 300 MG CAPSULE PO SCH ×2 (09:03→19:40)
[2021-05-18] MEDS: cefTRIAXone 1,000 MG in 0.9 % Sodium Chloride Mini Bag 100 ML IVPB SCH (18:39)
[2021-05-18] MEDS: Insulin NPH/REG 70/30 100 UNIT/ML (x5UNIT) SUBQ SCH (18:40)
[2021-05-18] MEDS: Melatonin 3 MG TABLET PO SCH (19:40)
[2021-05-19 04:58] LABS: Basophils % 0.2 %; Eosinophils # 0.1 K/mcL (0.0-0.6); Eosinophils % 1.7 %; Hematocrit 40.1 % (35.3-44.9); Hemoglobin 13.5 g/dL (11.5-15.4); Immature Granulocytes % 0.2 % (0-4); Lymphocytes # 1.8 K/mcL (0.6-4.6); Lymphocytes % 29.1 %; Mean Corpuscular HGB Conc 33.7 g/dL (31.6-35.5); Mean Corpuscular Hemoglobin 30.7 pg (28.0-33.3); Mean Corpuscular Volume 91.1 fL (83.0-100.0); Mean Platelet Volume 10.1 fL (9.4-12.4); Monocytes # 0.6 K/mcL (0.0-1.3); Monocytes % 9.3 %; Neutrophils # 3.6 K/mcL (1.6-8.9); Platelet Count 167 K/mcL (140-400); Red Cell Distribution Width 14.2 % (11.5-14.5); Segmented Neutrophils % 59.5 %
[2021-05-19 05:17] LABS: BUN/Creatinine Ratio 36 (6-26); Blood Urea Nitrogen 28 mg/dL (8-23); Calcium 8.9 mg/dL (8.6-10.3); Carbon Dioxide 25 mEq/L (23-29); Chloride 106 mEq/L (98-107); Glucose 196 mg/dL (70-105); Osmolality,Calculated 297 (280-300); Potassium 4.3 mEq/L (3.5-5.1); Sodium 138 mEq/L (136-145); eGFR For African Americans > 60 (> 60); eGFR For Non-African Americans > 60 (> 60)
[2021-05-19] MEDS: Famotidine 20 MG TABLET PO SCH (07:55)
[2021-05-19] MEDS: Doxycycline 100 MG CAPSULE PO SCH ×2 (07:55→21:26)
[2021-05-19] MEDS: Gabapentin 300 MG CAPSULE PO SCH ×2 (07:55→21:24)
[2021-05-19] MEDS: levETIRAcetam 250 MG TABLET PO SCH ×2 (07:55→21:24)
[2021-05-19] MEDS: Magnesium Oxide 400 MG TABLET PO SCH ×2 (07:56→21:26)
[2021-05-19] MEDS: Isosorbide MONOnitrate (24 HR) 30 MG TAB.ER.24H PO SCH (07:58)
[2021-05-19] MEDS: Aspirin Enteric Coated 81 MG Tablet PO SCH (07:58)
[2021-05-19] MEDS: Metoprolol XL (24 HR) Succ 50 MG TAB.ER.24H PO SCH (07:58)
[2021-05-19] MEDS: Insulin LISPRO 300 UNITS/3 ML VIAL SUBQ SCH ×4 (08:02→17:37)
[2021-05-19] MEDS: Insulin NPH/REG 70/30 100 UNIT/ML (x5UNIT) SUBQ SCH ×2 (08:03→17:35)
[2021-05-19] MEDS: 0.9 % Sodium Chloride 1,000 ML IVC SCH (13:14)
[2021-05-19] MEDS: *HR* Heparin 5,000 UNIT/ML VIAL SQ SCH (17:35)
[2021-05-19] MEDS: cefTRIAXone 1,000 MG in 0.9 % Sodium Chloride Mini Bag 100 ML IVPB SCH (17:35)
[2021-05-19] MEDS: Melatonin 3 MG TABLET PO SCH (21:24)
[2021-05-20] MEDS: 0.9 % Sodium Chloride 1,000 ML IVC SCH ×2 (04:47→14:51)
[2021-05-20] MEDS: *HR* Heparin 5,000 UNIT/ML VIAL SQ SCH (05:46)
[2021-05-20] MEDS: levETIRAcetam 250 MG TABLET PO SCH (07:41)
[2021-05-20] MEDS: Isosorbide MONOnitrate (24 HR) 30 MG TAB.ER.24H PO SCH (07:41)
[2021-05-20] MEDS: Aspirin Enteric Coated 81 MG Tablet PO SCH (07:41)
[2021-05-20] MEDS: Gabapentin 300 MG CAPSULE PO SCH (07:42)
[2021-05-20] MEDS: Doxycycline 100 MG CAPSULE PO SCH (07:42)
[2021-05-20] MEDS: Magnesium Oxide 400 MG TABLET PO SCH (07:42)
[2021-05-20] MEDS: Insulin LISPRO 300 UNITS/3 ML VIAL SUBQ SCH ×2 (07:43→11:32)
[2021-05-20] MEDS: Famotidine 20 MG TABLET PO SCH (07:43)
[2021-05-20] MEDS: Metoprolol XL (24 HR) Succ 50 MG TAB.ER.24H PO SCH (07:43)
[2021-05-20] MEDS: Insulin NPH/REG 70/30 100 UNIT/ML (x5UNIT) SUBQ SCH (08:05)
[2021-05-20 10:51] VITALS: BP 123/75; PULSE 98; TEMP 97.5; O2SAT 98
== END 2021-05-20 15:26 ==
LOC: 3BNU 12:21 → EMEROOARM 12:21 → SUATTDRO 17:28 → 3BNU 18:23
PROVIDERS: ADMIT Pharmacist; ATTEND Internal Medicine

== ENCOUNTER 2022-04-14 23:05 | Observation (INO) ==
[2022-04-15 00:18] LABS: Alanine Aminotransferase 16 Units/L (7-52); Albumin 4.2 g/dL (3.5-5.7); Albumin/Globulin Ratio 1.7 (1.1-2.2); Alkaline Phosphatase 43 Units/L (34-104); Aspartate Amino Transferase 17 Units/L (13-39); Bilirubin,Direct 0.1 mg/dL (0.0-0.2); Bilirubin,Indirect 0.5 mg/dL (0.0-1.0); Bilirubin,Total 0.6 mg/dL (0.3-1.0); Ethanol < 10 mg/dL (Less than 10); Globulin 2.5 g/dL (2.4-3.5); Total Protein 6.7 g/dL (6.4-8.9)
[2022-04-15 00:19] LABS: Troponin I < 0.03 ng/mL (< 0.04)
[2022-04-15 00:33] LABS: Thyroid Stimulating Hormone 3.336 mcIU/mL (0.340-5.600)
[2022-04-15 01:07] LABS: Bacteria,Urine Few per hpf (None-Few); Bilirubin,Urine Negative (Negative); Blood,Urine Small (Negative); Budding Yeast,Urine Few per hpf (None Seen); Clarity,Urine Turbid (Clear); Color,Urine Yellow (Yellow); Glucose,Urine (UA) 70 mg/dL (Normal); Ketones,Urine 10 mg/dL (Negative); Leukocyte Esterase,Urine Large (Negative); Mucus,Urine Few per lpf (None-Few); Nitrite,Urine Positive (Negative); Protein,Urine 200 mg/dL (Neg-Trace); Specific Gravity,Urine > 1.030 (1.010-1.025); Squamous Epithelial Cell,Urine Few per hpf (None-Few); Transitional Epi Cells,Urine Few per hpf (None-Few); Urobilinogen,Urine Normal (Normal); WBC,Urine TNTC per hpf (0-3)
[2022-04-15 01:08] LABS: VBG HCO3 28 mEq/L (21-27); VBG PCO2 54 mmHg (41-51); VBG PH 7.32 pH Units (7.32-7.42); VBG PO2 50 mmHg (25-50)
[2022-04-15] MEDS ORDERED: cefTRIAXone 1,000 MG in 0.9 % Sodium Chloride 10 ML IVP ONE (01:13)
[2022-04-15 01:19] LABS: Amphetamine Screen,Urine Negative ng/mL (Cutoff=1000); Barbiturate Screen,Urine Negative ng/mL (Cutoff=200); Benzodiazepines Screen,Urine Negative ng/mL (Cutoff=200); Cannabinoid Screen,Urine Negative ng/mL (Cutoff = 50); Cocaine Screen,Urine Negative ng/mL (Cutoff= 300); Opiate Screen,Urine Positive ng/mL (Cutoff=300); Phencyclidine Screen,Urine Negative ng/mL (Cutoff=25)
[2022-04-15 02:38] LABS: BUN/Creatinine Ratio 27 (6-26); Blood Urea Nitrogen 22 mg/dL (8-23); Calcium 8.9 mg/dL (8.6-10.3); Carbon Dioxide 24 mEq/L (23-29); Chloride 104 mEq/L (98-107); Glucose 194 mg/dL (70-105); Osmolality,Calculated 295 (280-300); Potassium 3.9 mEq/L (3.5-5.1); Sodium 138 mEq/L (136-145)
[2022-04-15 03:01] LABS: Basophils % 0.5 %; Eosinophils # 0.1 K/mcL (0.0-0.6); Eosinophils % 2.8 %; Hemoglobin 12.6 g/dL (11.5-15.4); Immature Granulocytes % 0.9 % (0-4); Lymphocytes # 1.3 K/mcL (0.6-4.6); Lymphocytes % 29.4 %; Mean Corpuscular HGB Conc 33.2 g/dL (31.6-35.5); Mean Corpuscular Volume 90.5 fL (83.0-100.0); Mean Platelet Volume 10.8 fL (9.4-12.4); Monocytes # 0.4 K/mcL (0.0-1.3); Monocytes % 9.2 %; Neutrophils # 2.5 K/mcL (1.6-8.9); Platelet Count 119 K/mcL (140-400); Red Cell Distribution Width 13.3 % (11.5-14.5); Segmented Neutrophils % 57.2 %; White Blood Count 4.4 K/mcL (4.3-11.1)
[2022-04-15] MEDS ORDERED: Ondansetron 4 MG/2 ML VIAL IVP PRN (03:36)
[2022-04-15] MEDS ORDERED: Naloxone 0.4 MG/ML INJ IVP PRN (03:36)
[2022-04-15] MEDS ORDERED: Melatonin 3 MG TABLET PO PRN (03:36)
[2022-04-15] MEDS ORDERED: D5% in Water 1,000 ML IVC PRN (03:39)
[2022-04-15] MEDS ORDERED: *HR* Dextrose 50 % in Water (Syg) 50 ML SYRINGE IVP PRN (03:39)
[2022-04-15] MEDS ORDERED: Dextrose Gel 15 GM/37.5 ML TUBE PO PRN ×2 (03:39)
[2022-04-15] MEDS: *HR* Enoxaparin 40 MG/0.4 ML SYRINGE SQ SCH (06:21)
[2022-04-15] MEDS ORDERED: cefTRIAXone 1,000 MG in 0.9 % Sodium Chloride 10 ML IVP SCH ×2 (09:00→21:00)
[2022-04-15 09:08] LABS: Basophils % 0.2 %; Eosinophils # 0.1 K/mcL (0.0-0.6); Eosinophils % 1.2 %; Hematocrit 37.2 % (35.3-44.9); Hemoglobin 12.5 g/dL (11.5-15.4); Immature Granulocytes % 0.2 % (0-4); Lymphocytes % 20.7 %; Mean Corpuscular HGB Conc 33.6 g/dL (31.6-35.5); Mean Corpuscular Hemoglobin 30.3 pg (28.0-33.3); Mean Corpuscular Volume 90.1 fL (83.0-100.0); Mean Platelet Volume 10.8 fL (9.4-12.4); Monocytes # 0.4 K/mcL (0.0-1.3); Monocytes % 7.8 %; Neutrophils # 3.4 K/mcL (1.6-8.9); Platelet Count 132 K/mcL (140-400); Red Blood Count 4.13 M/mcL (3.82-4.97); Red Cell Distribution Width 13.4 % (11.5-14.5); Segmented Neutrophils % 69.9 %; White Blood Count 4.9 K/mcL (4.3-11.1)
[2022-04-15 09:16] LABS: INR 1.2; Prothrombin Time 12.9 Seconds (9.4-12.1)
[2022-04-15 09:18] LABS: Activated Partial Thrombo Time 35.3 Seconds (26.0-36.0)
[2022-04-15 09:28] LABS: BUN/Creatinine Ratio 29 (6-26); Blood Urea Nitrogen 20 mg/dL (8-23); Calcium 9.2 mg/dL (8.6-10.3); Carbon Dioxide 29 mEq/L (23-29); Chloride 101 mEq/L (98-107); Glucose 298 mg/dL (70-105); Magnesium 1.7 mg/dL (1.6-2.6); Osmolality,Calculated 298 (280-300); Phosphorous 2.6 mg/dL (2.7-4.5); Potassium 3.9 mEq/L (3.5-5.1); Sodium 137 mEq/L (136-145)
[2022-04-15] MEDS: Insulin LISPRO 300 UNITS/3 ML VIAL SUBQ SCH ×3 (10:24→17:31)
[2022-04-15] MEDS: Lactobacillus 1 EACH CAP.SPRINK PO SCH ×2 (10:26→22:08)
[2022-04-15] MEDS: Insulin DETEMIR 100 UNIT/ML X5UNITS SUBQ SCH ×2 (13:52→22:09)
[2022-04-15] MEDS: Aspirin Enteric Coated 81 MG Tablet PO SCH (15:21)
[2022-04-15] MEDS: Metoprolol XL (24 HR) Succ 50 MG TAB.ER.24H PO SCH (15:21)
[2022-04-15] MEDS: Isosorbide MONOnitrate (24 HR) 60 MG TAB.ER.24H PO SCH (15:21)
[2022-04-15] MEDS: Gabapentin 300 MG CAPSULE PO SCH ×2 (15:21→22:08)
[2022-04-15] MEDS: levETIRAcetam 250 MG TABLET PO SCH ×2 (15:22→22:08)
[2022-04-15] MEDS: *HR* HYDROcodone/Acet 5/325 mg TABLET PO PRN (17:56)
[2022-04-15] MEDS ORDERED: cefTRIAXone 1,000 MG in 0.9 % Sodium Chloride Mini Bag 100 ML IVPB SCH (18:00)
[2022-04-15] MEDS ORDERED: Melatonin 3 MG TABLET PO SCH (21:00)
[2022-04-15] MEDS ORDERED: Insulin LISPRO 300 UNITS/3 ML VIAL SUBQ SCH (21:00)
[2022-04-16 03:07] LABS: Basophils % 0.2 %; Eosinophils # 0.1 K/mcL (0.0-0.6); Eosinophils % 2.2 %; Hemoglobin 11.9 g/dL (11.5-15.4); Immature Granulocytes % 0.2 % (0-4); Lymphocytes # 1.3 K/mcL (0.6-4.6); Lymphocytes % 26.1 %; Mean Corpuscular HGB Conc 33.1 g/dL (31.6-35.5); Mean Corpuscular Hemoglobin 29.6 pg (28.0-33.3); Mean Corpuscular Volume 89.6 fL (83.0-100.0); Mean Platelet Volume 10.8 fL (9.4-12.4); Monocytes # 0.5 K/mcL (0.0-1.3); Monocytes % 10.6 %; Platelet Count 138 K/mcL (140-400); Red Blood Count 4.02 M/mcL (3.82-4.97); Red Cell Distribution Width 13.2 % (11.5-14.5); Segmented Neutrophils % 60.7 %
[2022-04-16 03:26] LABS: BUN/Creatinine Ratio 22 (6-26); Blood Urea Nitrogen 15 mg/dL (8-23); Calcium 8.6 mg/dL (8.6-10.3); Carbon Dioxide 27 mEq/L (23-29); Chloride 104 mEq/L (98-107); Glucose 231 mg/dL (70-105); Osmolality,Calculated 292 (280-300); Potassium 3.9 mEq/L (3.5-5.1); Sodium 137 mEq/L (136-145)
[2022-04-16] MEDS: *HR* HYDROcodone/Acet 5/325 mg TABLET PO PRN (05:33)
[2022-04-16] MEDS: *HR* Enoxaparin 40 MG/0.4 ML SYRINGE SQ SCH (05:34)
[2022-04-16] MEDS ORDERED: *HR* Labetalol 20 MG/4 ML SYRINGE IVP ONE (06:39)
[2022-04-16] MEDS: Isosorbide MONOnitrate (24 HR) 60 MG TAB.ER.24H PO SCH (08:46)
[2022-04-16] MEDS: Metoprolol XL (24 HR) Succ 50 MG TAB.ER.24H PO SCH (08:46)
[2022-04-16] MEDS: Aspirin Enteric Coated 81 MG Tablet PO SCH (08:46)
[2022-04-16] MEDS: Lactobacillus 1 EACH CAP.SPRINK PO SCH (08:46)
[2022-04-16] MEDS: levETIRAcetam 250 MG TABLET PO SCH (08:47)
[2022-04-16] MEDS: Gabapentin 300 MG CAPSULE PO SCH (08:47)
[2022-04-16] MEDS: Insulin DETEMIR 100 UNIT/ML X5UNITS SUBQ SCH (08:47)
[2022-04-16] MEDS: Insulin LISPRO 300 UNITS/3 ML VIAL SUBQ SCH ×2 (08:48→11:50)
[2022-04-16] MEDS ORDERED: cefTRIAXone 1,000 MG in 0.9 % Sodium Chloride 10 ML IVP SCH (09:00)
[2022-04-16 11:47] VITALS: BP 158/74; PULSE 55; TEMP 97.9; O2SAT 92
== END 2022-04-16 12:56 | disposition hospice, home (50) ==
LOC: EMEROOARM 23:05 → 2ANU 23:05 → SUATTDRO 04-15 03:11 → 2ANU 04-15 03:58
PROVIDERS: ADMIT Internal Medicine; ATTEND Internal Medicine

== ENCOUNTER 2022-06-04 18:36 | Observation (INO) ==
[2022-06-04 19:21] LABS: Basophils % 0.4 %; Eosinophils # 0.5 K/mcL (0.0-0.6); Eosinophils % 8.3 %; Hematocrit 33.4 % (35.3-44.9); Hemoglobin 10.7 g/dL (11.5-15.4); Immature Granulocytes % 0.2 % (0-4); Lymphocytes # 1.5 K/mcL (0.6-4.6); Lymphocytes % 27.9 %; Mean Corpuscular Hemoglobin 29.3 pg (28.0-33.3); Mean Corpuscular Volume 91.5 fL (83.0-100.0); Mean Platelet Volume 10.2 fL (9.4-12.4); Monocytes # 0.6 K/mcL (0.0-1.3); Monocytes % 10.5 %; Neutrophils # 2.9 K/mcL (1.6-8.9); Platelet Count 156 K/mcL (140-400); Red Blood Count 3.65 M/mcL (3.82-4.97); Red Cell Distribution Width 13.7 % (11.5-14.5); Segmented Neutrophils % 52.7 %; White Blood Count 5.5 K/mcL (4.3-11.1)
[2022-06-04 19:32] LABS: BUN/Creatinine Ratio 23 (6-26); Blood Urea Nitrogen 27 mg/dL (8-23); Calcium 8.6 mg/dL (8.6-10.3); Carbon Dioxide 23 mEq/L (23-29); Chloride 104 mEq/L (98-107); Glucose 81 mg/dL (70-105); Osmolality,Calculated 282 (280-300); Potassium 4.7 mEq/L (3.5-5.1); Sodium 134 mEq/L (136-145)
[2022-06-04 19:45] LABS: Acetaminophen < 10 mcg/mL (10-20); Magnesium 1.6 mg/dL (1.6-2.6); Salicylate < 2.5 mg/dL (15.0-30.0)
[2022-06-04] MEDS: GLUCAGON IVC SCH (20:54)
[2022-06-04] MEDS: SODIUM CHLORIDE 0.9% IVC SCH (20:54)
[2022-06-04] MEDS: HUMAN RECOMBINANT IVC SCH (20:54)
[2022-06-04] MEDS ORDERED: Naloxone 0.4 MG/ML INJ IVP PRN (22:03)
[2022-06-04] MEDS ORDERED: Ondansetron 4 MG/2 ML VIAL IVP PRN (22:03)
[2022-06-04] MEDS ORDERED: 0.9 % Sodium Chloride 500 ML IVC ONE (22:27)
[2022-06-04] MEDS ORDERED: *HR* Dextrose 50 % in Water (Syg) 50 ML SYRINGE IVP PRN (22:30)
[2022-06-04] MEDS ORDERED: D5% in Water 1,000 ML IVC PRN (22:30)
[2022-06-04] MEDS ORDERED: Dextrose Gel 15 GM/37.5 ML TUBE PO PRN ×2 (22:30)
[2022-06-04 22:58] LABS: Bilirubin,Urine Negative (Negative); Blood,Urine Negative (Negative); Clarity,Urine Clear (Clear); Color,Urine Light-Yellow (Yellow); Glucose,Urine (UA) Normal (Normal); Ketones,Urine Negative (Negative); Leukocyte Esterase,Urine Negative (Negative); Nitrite,Urine Negative (Negative); Protein,Urine Negative (Neg-Trace); Specific Gravity,Urine 1.011 (1.010-1.025); Urobilinogen,Urine Normal (Normal)
[2022-06-04 23:14] LABS: Amphetamine Screen,Urine Negative ng/mL (Cutoff=1000); Barbiturate Screen,Urine Negative ng/mL (Cutoff=200); Benzodiazepines Screen,Urine Negative ng/mL (Cutoff=200); Cannabinoid Screen,Urine Negative ng/mL (Cutoff = 50); Cocaine Screen,Urine Negative ng/mL (Cutoff= 300); Opiate Screen,Urine Positive ng/mL (Cutoff=300); Phencyclidine Screen,Urine Negative ng/mL (Cutoff=25)
[2022-06-05] MEDS: HUMAN RECOMBINANT IVC SCH ×5 (01:11→13:42)
[2022-06-05] MEDS: GLUCAGON IVC SCH ×5 (01:11→13:42)
[2022-06-05] MEDS: SODIUM CHLORIDE 0.9% IVC SCH ×5 (01:11→13:42)
[2022-06-05 01:45] LABS: Basophils % 0.3 %; Eosinophils # 0.3 K/mcL (0.0-0.6); Eosinophils % 4.8 %; Hemoglobin 10.3 g/dL (11.5-15.4); Immature Granulocytes % 0.4 % (0-4); Lymphocytes # 1.3 K/mcL (0.6-4.6); Lymphocytes % 18.1 %; Mean Corpuscular HGB Conc 32.2 g/dL (31.6-35.5); Mean Corpuscular Hemoglobin 29.7 pg (28.0-33.3); Mean Corpuscular Volume 92.2 fL (83.0-100.0); Monocytes # 0.6 K/mcL (0.0-1.3); Monocytes % 7.9 %; Neutrophils # 4.8 K/mcL (1.6-8.9); Platelet Count 127 K/mcL (140-400); Red Blood Count 3.47 M/mcL (3.82-4.97); Red Cell Distribution Width 13.6 % (11.5-14.5); Segmented Neutrophils % 68.5 %; White Blood Count 7.1 K/mcL (4.3-11.1)
[2022-06-05 01:52] LABS: INR 1.3; Prothrombin Time 14.6 Seconds (9.4-12.1)
[2022-06-05 02:30] LABS: Alanine Aminotransferase 12 Units/L (7-52); Albumin/Globulin Ratio 1.6 (1.1-2.2); Alkaline Phosphatase 34 Units/L (34-104); Aspartate Amino Transferase 12 Units/L (13-39); BUN/Creatinine Ratio 30 (6-26); Bilirubin,Direct 0.2 mg/dL (0.0-0.2); Bilirubin,Indirect 0.4 mg/dL (0.0-1.0); Bilirubin,Total 0.6 mg/dL (0.3-1.0); Blood Urea Nitrogen 21 mg/dL (8-23); Calcium 7.2 mg/dL (8.6-10.3); Carbon Dioxide 23 mEq/L (23-29); Chloride 110 mEq/L (98-107); Globulin 1.9 g/dL (2.4-3.5); Glucose 81 mg/dL (70-105); Magnesium 1.5 mg/dL (1.6-2.6); Osmolality,Calculated 288 (280-300); Phosphorous 3.6 mg/dL (2.7-4.5); Potassium 3.3 mEq/L (3.5-5.1); Sodium 138 mEq/L (136-145); Thyroid Stimulating Hormone 2.463 mcIU/mL (0.340-5.600); Total Protein 4.9 g/dL (6.4-8.9)
[2022-06-05] MEDS ORDERED: Calcium Gluconate 1gm/50mL 1 GM/50 ML BAG IVPB ONE (04:32)
[2022-06-05] MEDS: Insulin LISPRO 300 UNITS/3 ML VIAL SUBQ SCH ×3 (08:31→16:57)
[2022-06-05 16:04] VITALS: BP 166/95; PULSE 68; TEMP 98.3; O2SAT 93
== END 2022-06-05 17:19 | disposition home or self-care (01) ==
LOC: EMEROOARM 18:36 → 3NENU 18:36
PROVIDERS: ADMIT Internal Medicine; ATTEND Internal Medicine